=== PATIENT | male | born 1960 | race Caucasian/White ===

== ENCOUNTER 2021-09-27 11:36 | Inpatient (IN) | payer BC, SELFPAY ==
[2021-09-27] VITALS (9 sets, daily range): BP systolic 108–154; BP diastolic 46–83; PULSE 78–111; RESP 19–24; TEMP 36.5–37.1; O2SAT 79–95; BMI 32.1; BMI 32.7
--- NOTE | 2021-09-27 11:50 | ECG_ITS ---
APPROVED REPORT Exam: Resting ECG HR:108 bpm ECG Measurements Heart Rate 108 AXES UT 126 P 23 QRSd 90 QRS -3 QT 330 T 58 QTc 442 Conclusion Sinus tachycardia Possible Anterior infarct, age undetermined Abnormal ECG Electronically signed by : Dick Pereyra MD 09/28/2021 21:07:46
--- NOTE | 2021-09-27 11:59 | XR_ITS ---
PROCEDURE INFORMATION: Exam: XR Chest Exam date and time: 09/27/2021 11:59 AM Age: 61 years old Clinical indication: Shortness of breath; Additional info: Soa/low oxygen patient unable to remove necklace due to no clasps TECHNIQUE: Imaging protocol: XR of the chest. Views: 1 view. COMPARISON: No relevant prior studies available. FINDINGS: Lungs: No focal airspace disease. Pleural spaces: Unremarkable. No pleural effusion. No pneumothorax. Heart/Mediastinum: Cardiomediastinal silhouette is within normal limits. Bones/joints: Unremarkable. IMPRESSION: No acute cardiopulmonary abnormality.
--- NOTE | 2021-09-27 12:05 | HMH.EDGENADL ---
ED Disposition Clinical Impression: Pneumonia due to COVID-19 virus Respiratory failure with hypoxia Qualifiers: Chronicity: acute Qualified Code(s): J96.01 - Acute respiratory failure with hypoxia Disposition: Admitted As Inpatient Condition on Discharge: Serious - Critical Care Critical Care Time: No Attestation: On , the high probability of a clinically significant, sudden or life threatening deterioration of the following system(s) required my full and direct attention, intervention and personal management. The time I documented below is in addition to time spent performing reported procedures but includes the following listed in this critical care notation. Medical Decision Making - Mickey Inquiry Pt receiving controlled substance: No Vital Signs: 09/27/21 12:00 09/27/21 12:01 09/27/21 12:08 Temperature 97.7 F Temperature Source Oral Pulse Rate 109 H Pulse Rate [Left Radial] 111 H Respiratory Rate 22 24 Blood Pressure Blood Pressure [Right Arm] 122/57 L Blood Pressure Mean [Right Arm] 78 02 Sat by Pulse Oximetry 79 L 84 L Oxygen Delivery Method Vapotherm Room Air 09/27/21 12:25 09/27/21 13:29 09/27/21 14:15 Temperature Temperature Source Pulse Rate 108 H 103 H 99 H Pulse Rate [Left Radial] Respiratory Rate 24 22 24 Blood Pressure 121/83 129/69 131/69 Blood Pressure [Right Arm] Blood Pressure Mean [Right Arm] 02 Sat by Pulse Oximetry 93 L 95 93 L Oxygen Delivery Method Vapotherm Vapotherm Vapotherm 09/27/21 14:18 Temperature 97.7 F Temperature Source Oral Pulse Rate 99 H Pulse Rate [Left Radial] Respiratory Rate 24 Blood Pressure 131/69 Blood Pressure [Right Arm] Blood Pressure Mean [Right Arm] 02 Sat by Pulse Oximetry Oxygen Delivery Method Vapotherm - Lab Data Lab Results 09/27/21 11:53: WBC 3.5 L, RBC 6.07, Hgb 19.2 H, Hct 56.4 H, MCV 92.9, MCH 31.6 H, MCHC 34.0, RDW 13.9, Plt Count 145, MPV 9.8, Neut % (Auto) 69.5, Lymph % (Auto) 22.0, [place] % (Auto) 7.4, Eos % (Auto) 0.2, Baso % (Auto) 1.0, Neut # (Auto) 2.4, Lymph # (Auto) 0.8, [place] # (Auto) 0.3, Eos # (Auto) 0.0, Baso # (Auto) 0.0 09/27/21 11:53: Sodium 138, Potassium 4.5, Chloride 100, Carbon Dioxide 27, Anion Gap 15.5 H, BUN 40 H, Creatinine 1.40 H, Estimated Creat Clear 80, Estimated GFR 51 L, Est GFR ( Amer) 62, Glucose 134 H, Calcium 8.2 L, Total Bilirubin 0.6, AST 434 H*, ALT 241 H, Alkaline Phosphatase 99, Total Protein 7.1, Albumin 4.1, Globulin 3.0, Albumin/Globulin Ratio 1.4 09/27/21 11:53: SARS-CoV-2 (PCR) Detected A, Influenza A Untype (PCR) Not detected, Influenza Type B (PCR) Not detected 09/27/21 11:53: D-Dimer 2.37 H 09/27/21 11:53: PT 11.5, INR 1.02, APTT 26.8 09/27/21 11:53: C-Reactive Protein 99.0 H 09/27/21 11:53: Procalcitonin 0.182 09/27/21 11:53: Lactate Dehydrogenase 2042 H 09/27/21 12:13: VBG pH 7.34, VBG pCO2 43.4, VBG pO2 21.5 L, VBG HCO3 22.9 L, VBG Total CO2 24.3, VBG O2 Saturation 31.1 L, VBG Base Excess -2.8 L 09/27/21 12:19: Lactate 2.0 Result diagrams: 09/27/21 11:53 09/27/21 11:53 Orders (Tests/Meds): ED MEDICATIONS Generic Name Dose Route Start Last Admin Trade Name Freq PRN Reason Stop Dose Admin Acetaminophen 650 mg 09/27/21 14:09 Acetaminophen 325mg Tab PO 10/27/21 14:08 Q6HP PRN Mild pain,fever,headache Ascorbic Acid 500 mg 09/27/21 17:00 Ascorbic Acid 500mg Tab PO 10/27/21 16:59 QID [facility] Dexamethasone Sodium Phosphate 6 mg 09/27/21 14:09 Dexamethasone 4mg/Ml 1ml Vial IV 10/27/21 14:08 DAILY [facility] Enoxaparin Sodium 60 mg 09/27/21 14:09 Enoxaparin 60mg/0.6ml Syringe SQ 10/27/21 14:08 DAILY [facility] Ergocalciferol 50,000 unit 09/27/21 14:09 Ergocalciferol 50,000 Units (1.25mg) Capsule PO 10/27/21 14:08 WEEKLY [facility] Famotidine 20 mg 09/27/21 21:00 Famotidine 20mg Tablet PO 10/27/21 20:59 BID [facility] Sodium Chloride 1,000 mls @ 100 mls/hr 09/27/21 14:09 Sod Chlor 0.9%
[2021-09-27 12:06] LABS: Influenza A, PCR Not Detected (NotDetected); Influenza B, PCR Not Detected (NotDetected)
[2021-09-27 12:16] LABS: Eosinophils % 0.2 % (0.1-12.0); Hematocrit 56.4 % (42.0-52.0); Lymphocytes # 0.8 K/mm3 (0.7-4.5); Mean Corpuscular Hemoglobin 31.6 pg (27.0-31.2); Mean Corpuscular Volume 92.9 fl (80-94); Mean Platelet Volume 9.8 fl (7.4-10.4); Monocytes # 0.3 K/mm3 (0.1-1.0); Monocytes % 7.4 % (1.7-9.3); Neutrophils # 2.4 K/mm3 (1.8-7.8); Neutrophils % 69.5 % (37.0-80.0); Platelet Count 145 K/mm3 (142-424); Red Blood Count 6.07 M/mm3 (4.60-6.20); Red Cell Distribution Width 13.9 % (11.5-17.5); White Blood Count 3.5 K/mm3 (4.8-10.8)
--- NOTE | 2021-09-27 12:20 | PC.NURSE ---
RT at the bedside for ABG. pt declined. VBG order obtained per MD. Pt placed on high flow 02 per RT
[2021-09-27 12:22] LABS: Hemoglobin 19.2 g/dL (14.1-18.0)
--- NOTE | 2021-09-27 12:22 | PC.NURSE ---
Pt placed on vapotherm at this time. 30L 70% with sats staying above 90%.
[2021-09-27 12:25] LABS: Chloride 100 mmol/L (98-107); Potassium 4.5 mmoL/L (3.5-5.1); Sodium 138 mmol/L (136-145)
[2021-09-27 12:26] LABS: VBG Base Excess -2.8 mmol/L (-2.4-2.3); VBG HCO3 22.9 mmol/L (23-30); VBG Oxygen Saturation 31.1 % (50-70); VBG PCO2 43.4 mmol/L (35-51); VBG PH 7.34 mmol/L (7.31-7.41); VBG PO2 21.5 mmol/L (28-40); VBG Total CO2 24.3 mmol/L (23-27)
[2021-09-27 12:27] LABS: Blood Urea Nitrogen 40 mg/dl (9-20); Creatinine Clearance Estimated 80 mL/min (50-200); D-Dimer 2.37 ug/mL (0.0-0.5); Estimated Glomerular Filt Rate 51 ml/min (>60); GFR (African American) 62 ML/MIN (>60)
[2021-09-27 12:28] LABS: Alanine Aminotransferase 241 U/L (12-78); Albumin Level 4.1 g/dl (3.5-5.0); Albumin/Globulin Ratio 1.4 (1.1-1.8); Alkaline Phosphatase 99 U/L (38-126); Anion Gap 15.5 mEq/L (5-15); Aspartate Amino Transferase 434 U/L (17-59); Bilirubin,Total 0.6 mg/dl (0.2-1.3); Calcium 8.2 mg/dl (8.4-10.2); Carbon Dioxide 27 mmol/L (22.0-30.0); Glucose 134 mg/dl (74-100); Total Protein,Serum 7.1 g/dl (6.3-8.2)
--- NOTE | 2021-09-27 12:29 | CT_ITS ---
PROCEDURE INFORMATION: Exam: CTA Chest With Contrast Exam date and time: 09/27/2021 12:29 PM Age: 61 years old Clinical indication: Shortness of breath; Additional info: Hypoxia TECHNIQUE: Imaging protocol: Computed tomographic angiography of the chest with contrast. 3D rendering (Not supervised by radiologist): MIP and/or 3D reconstructed images were created by the technologist. Radiation optimization: All CT scans at this facility use at least one of these dose optimization techniques: automated exposure control; mA and/or kV adjustment per patient size (includes targeted exams where dose is matched to clinical indication); or iterative reconstruction. Contrast material: ISOVUE; Contrast volume: 70 ml; Contrast route: INTRAVENOUS (IV); COMPARISON: CR XR CHEST PORTABLE 09/27/2021 12:34 PM FINDINGS: Pulmonary arteries: No pulmonary embolus in the opacified pulmonary arteries. Aorta: Ectasia of the thoracic aorta. Lungs: Emphysematous change and bilateral interstitial/airspace disease. Bronchoscopy can be performed for further evaluation, if clinically indicated. Pleural spaces: Mild pleural thickening. Heart: No cardiomegaly. Lymph nodes: Multiple enlarged lymph nodes including 2.7 by 2.2 by 2.4 cm right hilar, 2.2 by 1.3 by 2.8 cm left suprahilar, and 2.4 by 1.8 by 2.7 cm subcarinal lymph nodes. Upper abdomen: Fatty infiltration of the liver. Splenic granulomata. Renal cysts, including a 2.3 cm right upper pole cyst. Questionable wall thickening in the nondistended stomach. Prominent stool. Bones/joints: Degenerative change. 1.2 cm bone island in the right 8th posterior rib. Soft tissues: Mild gynecomastia. IMPRESSION: 1. No pulmonary embolus in the opacified pulmonary arteries. 2. Multiple enlarged lymph nodes . 3. Emphysematous change and bilateral interstitial/airspace disease. 4. Additional findings as described above. COMMENTS: Consistent with the [employer]'s Incidental Findings Committee white paper (J Am Carissa Radiol 2018): Any incidental renal lesion less than 1 cm or classified as too small to characterize, or any incidental cystic renal lesion characterized as simple-appearing, is likely benign. No follow-up imaging is recommended for these lesions per consensus recommendations based on imaging criteria.
[2021-09-27 12:43] LABS: Procalcitonin 0.182 ng/mL (0.0-2.0)
[2021-09-27 12:49] LABS: Lactate Dehydrogenase 2042 U/L (313-618)
[2021-09-27 12:51] LABS: Coronavirus 19, PCR Detected (NotDetected)
[2021-09-27 13:09] LABS: Activated Partial Thrombo Time 26.8 seconds (22.8-30.6); INR 1.02 (0.9-1.1); Prothrombin Time 11.5 seconds (10.1-12.5)
--- NOTE | 2021-09-27 13:29 | PC.NURSE ---
pt retured from CT
--- NOTE | 2021-09-27 13:55 | PC.NURSE ---
Contacted house about admission
--- NOTE | 2021-09-27 14:13 | PC.NURSE ---
called report to maynor baez
--- NOTE | 2021-09-27 14:33 | PC.NURSE ---
PT ARRIVED TO THE FLOOR AT THIS TIME
[2021-09-27 14:34] LABS: Ferritin 8590 ng/ml (17.9-464)
--- NOTE | 2021-09-27 14:34 | HMH.PHAVTE ---
[facility] Pharmacy VTE Monitoring - Patient Demographics Admission date: 09/27/21 Report Date: 09/27/21 Time: 14:34 Allergies/Adverse Reactions: Patient Allergies No Known Allergies Allergy (Verified 09/27/21 11:59) Height: 1.8 m Weight: 104.326 kg Patient Problems: Current Active Problems Pneumonia due to COVID-19 virus (Acute) Respiratory failure with hypoxia (Acute) - VTE Risk Labs: VTE Related Lab Results Hgb 19.2 g/dL (14.1-18.0) H 09/27/21 11:53 Hct 56.4 % (42.0-52.0) H 09/27/21 11:53 Plt Count 145 K/mm3 (142-424) 09/27/21 11:53 PT 11.5 seconds (10.1-12.5) 09/27/21 11:53 INR 1.02 (0.9-1.1) 09/27/21 11:53 APTT 26.8 seconds (22.8-30.6) 09/27/21 11:53 BUN 40 mg/dl (9-20) H 09/27/21 11:53 Creatinine 1.40 mg/dl (0.66-1.25) H 09/27/21 11:53 Estimated Creat Clear 80 mL/min (50-200) 09/27/21 11:53 Was VTE Risk Assessment Performed: No Clinical Trial Participant: No - Prophylaxis VTE Prophylaxis Ordered?: Yes Types of VTE Prophylaxis: TEDS Knee High, Pharmacological Location of Applied Device: Bilateral Lower Extremeties Pharmacologic Type: Enoxaparin
--- NOTE | 2021-09-27 17:17 | PC.NURSE ---
Patient i9s pleasant but continues to refuse to wear his high flow cannula despite education otherwise and encouragement. Patient was explained the consequences of low and poor oxygenation to organs and the possibility of hypoxia. Patient is completely alert and oriented, patient states, Covid is not real.
--- NOTE | 2021-09-27 20:48 | HMH.HP ---
*Admission Date: 09/27/21 *Chief complaint: sob *History of present illness: this patient presented to the ed -e states that he thinks he caught the Covid. He has no known exposures, but started getting sick a week ago on after taking his father home to [facility]. He began feeling like he had the flu. He has had a cough. For the past few days he has shortness of breath and has been checking his pulse oximetry at home and today was as low as the 70s on room air. He does not have any chronic medical problems and does not have a primary care physician. He is a smoker. He has not been vaccinated against Covid. pt was admitted for covid-19 treatment - [facility] History I have reviewed the patient's past medical history: Yes *Have you ever received a pneumonia vaccine?: No *Have you received a flu vaccine this season?: No - *Social History Smoking Status: Current some day smoker Tobacco Type: cigarettes # Packs/Day (cigarettes): 2 Alcohol Intake: never *Occupational Status:: retired *Travel in the last 8 weeks: None Family Hx:: Non-contributory Review of Systems - Review of Systems Review of systems:: pertinent systems reviewed and negative unless documented below - Constitutional Denies fever(s) - Eyes Denies change in vision - ENT Denies sore throat - *Cardiovascular Reports shortness of breath with activity, Denies chest pain at rest - *Respiratory Reports cough, Reports shortness of breath, Denies coughing up blood - *Gastrointestinal Denies abdominal pain - *Genitourinary Denies blood in urine - *Musculoskeletal Denies joint pain, Denies neck pain - Integumentary/Breasts Denies rash - *Neurologic Denies headache(s), Denies seizure-like activity - Psychiatric Denies anxiety Meds Home Medications Medication Instructions Recorded Confirmed Type No Known Home Medications 09/27/21 09/27/21 History Allergies Allergy/AdvReac Type Severity Reaction Status Date / Time No Known Allergies Allergy Verified 09/27/21 11:59 Exam Vital signs and Labs for Last 24 Hours: Temp Pulse Resp BP Pulse Ox 98.2 F 83 19 108/46 L 94 L 09/27/21 19:43 09/27/21 19:43 09/27/21 19:43 09/27/21 19:43 09/27/21 19:43 Laboratory Results - last 24 hr 09/27/21 11:53: WBC 3.5 L, RBC 6.07, Hgb 19.2 H, Hct 56.4 H, MCV 92.9, MCH 31.6 H, MCHC 34.0, RDW 13.9, Plt Count 145, MPV 9.8, Neut % (Auto) 69.5, Lymph % (Auto) 22.0, [place] % (Auto) 7.4, Eos % (Auto) 0.2, Baso % (Auto) 1.0, Neut # (Auto) 2.4, Lymph # (Auto) 0.8, [place] # (Auto) 0.3, Eos # (Auto) 0.0, Baso # (Auto) 0.0 09/27/21 11:53: Sodium 138, Potassium 4.5, Chloride 100, Carbon Dioxide 27, Anion Gap 15.5 H, BUN 40 H, Creatinine 1.40 H, Estimated Creat Clear 80, Estimated GFR 51 L, Est GFR ( Amer) 62, Glucose 134 H, Calcium 8.2 L, Total Bilirubin 0.6, AST 434 H*, ALT 241 H, Alkaline Phosphatase 99, Total Protein 7.1, Albumin 4.1, Globulin 3.0, Albumin/Globulin Ratio 1.4 09/27/21 11:53: SARS-CoV-2 (PCR) Detected A, Influenza A Untype (PCR) Not detected, Influenza Type B (PCR) Not detected 09/27/21 11:53: D-Dimer 2.37 H 09/27/21 11:53: PT 11.5, INR 1.02, APTT 26.8 09/27/21 11:53: C-Reactive Protein 99.0 H 09/27/21 11:53: Ferritin 8590 H, Procalcitonin 0.182 09/27/21 11:53: Lactate Dehydrogenase 2042 H 09/27/21 12:13: VBG pH 7.34, VBG pCO2 43.4, VBG pO2 21.5 L, VBG HCO3 22.9 L, VBG Total CO2 24.3, VBG O2 Saturation 31.1 L, VBG Base Excess -2.8 L 09/27/21 12:19: Lactate 2.0 I & O for Last 24 hours: Intake & Output 09/25/21 09/26/21 09/27/21 09/28/21 11:59 11:59 11:59 11:59 Intake Total 360 / 360 Balance 360 / 360 Weight 230 lb 234 lb 7 oz - Constitutional no acute distress, obese - *Routine HEENT Exam Head: Present: normocephalic Eye: Present: EOMI, PERRL ENT: Present: mucous membranes dry - *Routine Neck Exam Absent: JVD - *Routine Respiratory Exam Present: decreased breath sounds, rhonchi - *Rou
[2021-09-28] VITALS (8 sets, daily range): BP systolic 119–156; BP diastolic 66–78; PULSE 73–104; RESP 20–28; TEMP 36.6–37; O2SAT 91–94; BMI 33.1
--- NOTE | 2021-09-28 02:38 | PC.NURSE ---
Patient is A&Ox4. Patient has had to have frequent interventions regarding keeping his oxygen on. Patient's oxygen drops to upper 60s-low 70s when patient takes oxygen off.
[2021-09-28 06:21] LABS: Chloride 104 mmol/L (98-107); Sodium 136 mmol/L (136-145)
[2021-09-28 06:22] LABS: Potassium 4.6 mmoL/L (3.5-5.1)
[2021-09-28 06:24] LABS: Alanine Aminotransferase 166 U/L (12-78); Albumin Level 3.3 g/dl (3.5-5.0); Albumin/Globulin Ratio 1.2 (1.1-1.8); Alkaline Phosphatase 94 U/L (38-126); Anion Gap 10.6 mEq/L (5-15); Aspartate Amino Transferase 279 U/L (17-59); Bilirubin,Total 0.5 mg/dl (0.2-1.3); Blood Urea Nitrogen 31 mg/dl (9-20); Carbon Dioxide 26 mmol/L (22.0-30.0); Creatinine Clearance Estimated 115 mL/min (50-200); Estimated Glomerular Filt Rate 85 ml/min (>60); GFR (African American) 103 ML/MIN (>60); Globulin 2.8 g/dL (1.3-3.2); Total Protein,Serum 6.1 g/dl (6.3-8.2)
[2021-09-28 06:25] LABS: Calcium 7.7 mg/dl (8.4-10.2); Glucose 100 mg/dl (74-100)
--- NOTE | 2021-09-28 09:24 | HMH.ACPN2 ---
Internal Medicine - PN: Subj *Date: 09/28/21 *Time: 09:24 Interval history: vaper therm in place pt states he was able to eat some, still short of air Exam Vital signs and Labs for Last 24 Hours: Temp Pulse Resp BP Pulse Ox 98.4 F 96 H 26 H 156/68 H 91 L 09/28/21 08:00 09/28/21 08:00 09/28/21 08:00 09/28/21 08:00 09/28/21 08:00 Laboratory Results - last 24 hr 09/27/21 11:53: WBC 3.5 L, RBC 6.07, Hgb 19.2 H, Hct 56.4 H, MCV 92.9, MCH 31.6 H, MCHC 34.0, RDW 13.9, Plt Count 145, MPV 9.8, Neut % (Auto) 69.5, Lymph % (Auto) 22.0, [place] % (Auto) 7.4, Eos % (Auto) 0.2, Baso % (Auto) 1.0, Neut # (Auto) 2.4, Lymph # (Auto) 0.8, [place] # (Auto) 0.3, Eos # (Auto) 0.0, Baso # (Auto) 0.0 09/27/21 11:53: Sodium 138, Potassium 4.5, Chloride 100, Carbon Dioxide 27, Anion Gap 15.5 H, BUN 40 H, Creatinine 1.40 H, Estimated Creat Clear 80, Estimated GFR 51 L, Est GFR ( Amer) 62, Glucose 134 H, Calcium 8.2 L, Total Bilirubin 0.6, AST 434 H*, ALT 241 H, Alkaline Phosphatase 99, Total Protein 7.1, Albumin 4.1, Globulin 3.0, Albumin/Globulin Ratio 1.4 09/27/21 11:53: SARS-CoV-2 (PCR) Detected A, Influenza A Untype (PCR) Not detected, Influenza Type B (PCR) Not detected 09/27/21 11:53: D-Dimer 2.37 H 09/27/21 11:53: PT 11.5, INR 1.02, APTT 26.8 09/27/21 11:53: C-Reactive Protein 99.0 H 09/27/21 11:53: Ferritin 8590 H, Procalcitonin 0.182 09/27/21 11:53: Lactate Dehydrogenase 2041 H 09/27/21 12:13: VBG pH 7.34, VBG pCO2 43.4, VBG pO2 21.5 L, VBG HCO3 22.9 L, VBG Total CO2 24.3, VBG O2 Saturation 31.1 L, VBG Base Excess -2.8 L 09/27/21 12:19: Lactate 2.0 09/28/21 05:43: Sodium 136, Potassium 4.6, Chloride 104, Carbon Dioxide 26, Anion Gap 10.6, BUN 31 H, Creatinine 0.90 D, Estimated Creat Clear 115, Estimated GFR 85, Est GFR ( Amer) 103 D, Glucose 100 D, Calcium 7.7 L, Total Bilirubin 0.5, AST 279 H D, ALT 166 H D, Alkaline Phosphatase 94, Total Protein 6.1 L, Albumin 3.3 L D, Globulin 2.8, Albumin/Globulin Ratio 1.2 I & O for Last 24 hours: Intake & Output 09/25/21 09/26/21 09/27/21 09/28/21 11:59 11:59 11:59 11:59 Intake Total 480 / 480 Output Total 0 / 0 Balance 480 / 480 Weight 230 lb 236 lb 9.6 oz - Constitutional no acute distress - *Routine HEENT Exam Head: Present: normocephalic Eye: Present: PERRL ENT: Present: mucous membranes moist - *Routine Neck Exam Present: supple. Absent: lymphadenopathy - *Routine Respiratory Exam Present: CTA bilaterally - *Routine Cardiovascular Exam Present: RRR - *Routine Abdominal Exam Present: soft, normoactive bowel sounds. Absent: tenderness - *Routine Extremities Exam Absent: cyanosis, clubbing, edema - *Routine Skin Exam Present: warm. Absent: rash - *Routine Neurological Exam Present: alert, oriented X3 Assessment and Plan (1) Obesity (BMI 30-39.9) Status: Acute Category: Medical Code(s): E66.9 - Obesity, unspecified (2) Pneumonia due to COVID-19 virus Status: Acute Category: Medical Code(s): U07.1 - COVID-19; J12.82 - Pneumonia due to coronavirus disease 2019 (3) Respiratory failure with hypoxia Status: Acute Qualifiers: Chronicity: acute Qualified Code(s): J96.01 - Acute respiratory failure with hypoxia Category: Medical Code(s): J96.91 - Respiratory failure, unspecified with hypoxia (4) Renal insufficiency Status: Acute Category: Medical Code(s): N28.9 - Disorder of kidney and ureter, unspecified (5) Elevated liver enzymes Status: Acute Category: Medical Code(s): R74.8 - Abnormal levels of other serum enzymes - Assessment and plan all Dx Assessment and Plan for all problems:: rounded with dr lanza all orders per dr bucio pulreji consult
--- NOTE | 2021-09-28 11:24 | HMH.PULMCON ---
*Admission Date: 09/27/21 *Reason for consult:: Acute hypoxic respiratory failure, COVID-19 pneumonia *History of present illness: Mr. Hernandez is a 61-year-old female smoker greater than [id number] smoking history, not using any inhalers at baseline, not using oxygen, yet to be vaccinated, no known recent sick contacts presented to the hospital with worsening respiratory status which he initially thought secondary to flu with symptoms getting progressively worse and he seek medical attention during which he was needing oxygen supplementation to maintain his O2 saturations and was eventually admitted to the hospital for further management. [facility] History *Have you ever received a pneumonia vaccine?: No *Have you received a flu vaccine this season?: No - *Social History Smoking Status: Current some day smoker Tobacco Type: cigarettes # Packs/Day (cigarettes): 2 Alcohol Intake: never *Occupational Status:: retired *Travel in the last 8 weeks: None Family Hx:: Non-contributory ROS - Cons Reports anorexia, Reports body ache(s) - ENT Denies bleeding gums - Card Reports shortness of breath with activity - Resp Respiratory: Reports shortness of breath, Reports change in phlegm color, Reports chest congestion, Reports cough, Reports dyspnea, Reports excessive phlegm production, Denies coughing up blood, Denies pain on inspiration, Denies pain with cough, Reports cough with sputum production, Denies pain with breathing - GI Gastrointestingal: Denies: abdominal pain - Psych Denies thoughts of hurting/killing others, Denies thoughts of hurting/killing yourself Meds Home Medications Medication Instructions Recorded Confirmed Type No Known Home Medications 09/27/21 09/27/21 History Allergies Allergy/AdvReac Type Severity Reaction Status Date / Time No Known Allergies Allergy Verified 09/27/21 11:59 Exam - Constitutional Constitutional:: Absent: no acute distress, comfortable - HENMT Exam HENMT: Present: normocephalic - Eye Exam Eyes:: Present: normal appearance both eyes and related structures - Neck Exam Neck:: Present: normal visual inspection - Respiratory Exam Respiratory:: Present: respiratory distress, rales, rhonchi. Absent: accessory muscle use, wheezing - Cardiovascular Exam Cardiac:: Present: S1, S2 - GI Exam GI:: Present: soft, no hepatosplenomegaly, no tenderness - Skin Exam Skin: Present: warm, no rash - Neurological Exam Neurological: Present: alert, awake, normal cognition - Extremities Exam Extremities: Present: no cyanosis, no clubbing, no edema Internal Medicine - CN: Reslt - Labs CBC & Chem 7: 09/27/21 11:53 09/28/21 05:43 Labs: Short CBC 09/27/21 Range/Units 11:53 WBC 3.5 L (4.8-10.8) K/mm3 Hgb 19.2 H (14.1-18.0) g/dL Hct 56.4 H (42.0-52.0) % Plt Count 145 (142-424) K/mm3 BMP 09/27/21 09/28/21 11:53 05:43 Sodium 138 136 Potassium 4.5 4.6 Chloride 100 104 Carbon Dioxide 27 26 BUN 40 H 31 H Creatinine 1.40 H 0.90 D Glucose 134 H 100 D Calcium 8.2 L 7.7 L Liver Function 09/27/21 09/28/21 Range/Units 11:53 05:43 Total Bilirubin 0.6 0.5 (0.2-1.3) mg/dl AST 434 H* 279 H D (17-59) U/L ALT 241 H 166 H D (12-78) U/L Alkaline Phosphatase 99 94 (38-126) U/L Albumin 4.1 3.3 L D (3.5-5.0) g/dl - ABG Interpretation ABG results: 09/27/21 12:13 VBG pH 7.34 VBG pCO2 43.4 VBG pO2 21.5 L VBG HCO3 22.9 L VBG Total CO2 24.3 VBG O2 Saturation 31.1 L VBG Base Excess -2.8 L Assessment and Plan (1) Obesity (BMI 30-39.9) Status: Acute Category: Medical Code(s): E66.9 - Obesity, unspecified (2) Pneumonia due to COVID-19 virus Status: Acute Category: Medical Code(s): U07.1 - COVID-19; J12.82 - Pneumonia due to coronavirus disease 2019 (3) Respiratory failure with hypoxia Status: Acute Qualifiers: Chronicity: acute Qualified Code(s): J96.01
--- NOTE | 2021-09-28 16:42 | PC.NURSE ---
Pt has been pleasant and somewhat cooperative this shift. Pt requires frequent education regarding the use of Vapotherm. Pt frequently removes his cannula and ambulates throughout the room independently. Pt de-sats. to mid 70's and requires about 20 minutes to fully recover once Vapotherm is reapplied. A&O X4. No complaints of pain. SOA reported with any and all activity. Vapotherm is currently set to 30 LPM/75%. Lung sounds are diminished. No edema noted. Skin is C/D/I. Urine is clear and yellow. No BM thus far this shift. Appetite is fair and pt eats about 50% of all meals. Pt has been instructed to provide a sputum sample and a specimen cup has been placed at bedside. 20 G peripheral IV in the LT forearm is patent and infusing NS @ 100 ML/HR. VSS. Call light within reach. Will continue to monitor.
[2021-09-29] VITALS (11 sets, daily range): BP systolic 113–152; BP diastolic 51–85; PULSE 69–88; RESP 17–25; TEMP 36.4–36.8; O2SAT 90–96; BMI 33.1; BMI 33.0
--- NOTE | 2021-09-29 05:33 | PC.NURSE ---
Patient has been cooperative this shift and has done well in keeping his vapotherm on. Patient was educated on an IS, patient verbally stated that he understood.
[2021-09-29 06:41] LABS: Basophils # 0.2 K/mm3 (0-0.2); Basophils % 2.7 % (0.1-2.0); Eosinophils % 0.1 % (0.1-12.0); Hemoglobin 17.1 g/dL (14.1-18.0); Lymphocytes # 1.3 K/mm3 (0.7-4.5); Lymphocytes % 18.8 % (10-50); Mean Corpuscular HGB Conc 34.1 g/dL (31.8-35.4); Mean Corpuscular Hemoglobin 31.4 pg (27.0-31.2); Mean Corpuscular Volume 91.9 fl (80-94); Mean Platelet Volume 10.3 fl (7.4-10.4); Monocytes # 0.3 K/mm3 (0.1-1.0); Monocytes % 4.5 % (1.7-9.3); Neutrophils # 4.9 K/mm3 (1.8-7.8); Neutrophils % 73.9 % (37.0-80.0); Platelet Count 197 K/mm3 (142-424); Red Blood Count 5.44 M/mm3 (4.60-6.20); Red Cell Distribution Width 14.7 % (11.5-17.5); White Blood Count 6.7 K/mm3 (4.8-10.8)
[2021-09-29 07:07] LABS: Anion Gap 6.2 mEq/L (5-15); Blood Urea Nitrogen 26 mg/dl (9-20); Carbon Dioxide 31 mmol/L (22.0-30.0); Chloride 107 mmol/L (98-107); Creatinine Clearance Estimated 115 mL/min (50-200); Estimated Glomerular Filt Rate 85 ml/min (>60); GFR (African American) 103 ML/MIN (>60); Glucose 116 mg/dl (74-100); Potassium 5.2 mmoL/L (3.5-5.1); Sodium 139 mmol/L (136-145)
[2021-09-29 08:18] LABS: Alanine Aminotransferase 163 U/L (12-78); Albumin Level 3.4 g/dl (3.5-5.0); Alkaline Phosphatase 97 U/L (38-126); Aspartate Amino Transferase 226 U/L (17-59); Bilirubin,Direct 0.3 mg/dl (0.0-0.4); Bilirubin,Indirect 0.2 mg/dL (0.0-0.9); Bilirubin,Total 0.5 mg/dl (0.2-1.3); Bilirubin,Unconjugated 0.2 mg/dL (0.0-1.1); Total Protein,Serum 6.6 g/dl (6.3-8.2)
--- NOTE | 2021-09-29 08:45 | HMH.ACPN2 ---
Internal Medicine - PN: Subj *Date: 09/29/21 *Time: 09:27 Interval history: 61-year-old male patient resting in bed quietly awakens to verbal stimuli. He reports he feels a little better today than yesterday though having cough and slight shortness of breath with exertion. Encouraged to eat more of meals, up in a chair for all meals, and moving around the room tolerating. Physical strength to intact with oxygen saturation 93%. Exam Vital signs and Labs for Last 24 Hours: Temp Pulse Resp BP Pulse Ox 98.3 F 73 20 129/56 L 93 L 09/29/21 08:00 09/29/21 08:00 09/29/21 08:00 09/29/21 08:00 09/29/21 08:00 Laboratory Results - last 24 hr 09/29/21 06:00: WBC 6.7 D, RBC 5.44, Hgb 17.1, Hct 50.0, MCV 91.9, MCH 31.4 H, MCHC 34.1, RDW 14.7, Plt Count 197 D, MPV 10.3, Neut % (Auto) 73.9, Lymph % (Auto) 18.8, [place] % (Auto) 4.5, Eos % (Auto) 0.1, Baso % (Auto) 2.7 H, Neut # (Auto) 4.9, Lymph # (Auto) 1.3, [place] # (Auto) 0.3, Eos # (Auto) 0.0, Baso # (Auto) 0.2 09/29/21 06:00: Sodium 139, Potassium 5.2 H, Chloride 107, Carbon Dioxide 31 H, Anion Gap 6.2, BUN 26 H, Creatinine 0.90, Estimated Creat Clear 115, Estimated GFR 85, Est GFR ( Amer) 103, Glucose 116 H, Calcium 8.0 L 09/29/21 06:00: Total Bilirubin 0.5, Direct Bilirubin 0.3, Conjugated Bilirubin 0.0, Indirect Bilirubin 0.2, Unconjugated Bilirubin 0.2, AST 226 H, ALT 163 H, Alkaline Phosphatase 97, Total Protein 6.6, Albumin 3.4 L I & O for Last 24 hours: Intake & Output 09/26/21 09/27/21 09/28/21 09/29/21 23:59 23:59 23:59 23:59 Intake Total 360 / 360 2165 / 2165 Output Total 0 / 200 825 / 825 Balance 360 / 360 2166 / 1966 -825 / -825 Weight 234 lb 7 oz 236 lb 9.6 oz 236 lb 9.601 oz - Constitutional no acute distress - *Routine HEENT Exam Head: Present: normocephalic Eye: Present: EOMI ENT: Present: mucous membranes moist - *Routine Neck Exam Present: trachea midline. Absent: tracheal deviation - *Routine Respiratory Exam Present: decreased breath sounds. Absent: accessory muscle use - *Routine Cardiovascular Exam Present: RRR - *Routine Abdominal Exam Present: soft, normoactive bowel sounds. Absent: tenderness - *Routine Extremities Exam Present: full ROM, pulses intact. Absent: cyanosis, clubbing, calf tenderness - *Routine Skin Exam Present: intact, dry. Absent: cyanosis, erythema - *Routine Neurological Exam Present: alert, oriented X3. Absent: altered mental status - Routine Psychiatric Exam Present: normal affect, normal thought process. Absent: visual hallucinations Assessment and Plan (1) Obesity (BMI 30-39.9) Status: Acute Category: Medical Code(s): E66.9 - Obesity, unspecified (2) Pneumonia due to COVID-19 virus Status: Acute Category: Medical Code(s): U07.1 - COVID-19; J12.82 - Pneumonia due to coronavirus disease 2019 (3) Respiratory failure with hypoxia Status: Acute Qualifiers: Chronicity: acute Qualified Code(s): J96.01 - Acute respiratory failure with hypoxia Category: Medical Code(s): J96.91 - Respiratory failure, unspecified with hypoxia (4) Renal insufficiency Status: Acute Category: Medical Code(s): N28.9 - Disorder of kidney and ureter, unspecified (5) Elevated liver enzymes Status: Acute Category: Medical Code(s): R74.8 - Abnormal levels of other serum enzymes - Assessment and plan all Dx Assessment and Plan for all problems:: Rounded with Dr. Bowling, all orders per Dr. Bowling: 1. Continue current medical regimen 2. Wean O2 as tolerated 3. Pulmonology following
--- NOTE | 2021-09-29 14:51 | P.PN_ITS ---
Internal Medicine - PN: Subj *Date: 09/29/21 *Time: 14:51 Interval history: No acute respiratory events overnight. Exam - Constitutional Constitutional:: Present: no acute distress, comfortable - HENMT Exam HENMT: Present: normocephalic, atraumatic - Eye Exam Eyes:: Present: normal appearance both eyes and related structures - Neck Exam Neck:: Present: normal visual inspection - Respiratory Exam Respiratory:: Present: able to speak in complete sentences, respiratory di stress, rales - Cardiovascular Exam Cardiac:: Present: S1, S2 - GI Exam GI:: Present: soft, no hepatosplenomegaly - Skin Exam Skin: Present: warm, no rash - Neurological Exam Neurological: Present: alert, awake, normal cognition - Extremities Exam Extremities: Present: no cyanosis, no clubbing, edema Assessment and Plan (1) Obesity (BMI 30-39.9) Status: Acute Category: Medical Code(s): E66.9 - Obesity, unspecified (2) Pneumonia due to COVID-19 virus Status: Acute Category: Medical Code(s): U07.1 - COVID-19; J12.82 - Pneumonia due to coronavirus disease 2019 (3) Respiratory failure with hypoxia Status: Acute Qualifiers: Chronicity: acute Qualified Code(s): J96.01 - Acute respiratory failure wi th hypoxia Category: Medical Code(s): J96.91 - Respiratory failure, unspecified with hypoxia (4) Renal insufficiency Status: Acute Category: Medical Code(s): N28.9 - Disorder of kidney and ureter, unspecified (5) Elevated liver enzymes Status: Acute Category: Medical Code(s): R74.8 - Abnormal levels of other serum enzymes - Assessment and plan all Dx Assessment and Plan for all problems:: #Acute hypoxic respiratory failure: #COVID-19 pneumonia: Current smoker greater than [id number] smoking history. Yet to be vaccinated. COVID-19 PCR positive. Flu a and B-. CTA did not show any evidence of pulmonary emboli however showed bilateral diffuse lower lobe predominant groundglass opacities concerning for COVID-19 pneumonia. Significantly elevated inflammatory markers. Patient was initiated on remdesivir dexamethasone and baricitinib on admission. Interval update: Patient respiratory status remained relatively stable. He continued to remain on 30 L 75% FiO2. This morning patient is off high flow nasal cannula saturating 80% with mild respiratory distress and upon talking to the nursing staff patient has been frequently removing the high flow nasal cannula since yesterday. Have discussed again regarding the proning protocol. Examination reveals 1+ lower extremity edema. Plan: Initiate proning protocol. Discussed the benefits and risks and patient is agreeable yesterday however he has not been prone up until this morning. Discussed with the nursing staff to initiate proning protocol. DuoNebs every 6 hours scheduled along with budesonide every 12 Ceftriaxone and azithromycin. We will follow with sputum cultures andnasal MRSA PCR. Blood cultures no growth 48 hours Continue high flow nasal oxygen supplementation, wean as tolerated Continue remdesivir dexamethasone and baricitinib for COVID-19 pneumonia. # Patient also noted to have mediastinal and hilar lymphadenopathy which can well be reactive. No recent prior x-rays or CT imaging available for further review. This needs to be followed as an outpatient basis, with respect to the lymphadenopathy and the possibility of underlying ILD.
--- NOTE | 2021-09-29 17:25 | PC.NURSE ---
Patient is non tele and on vapotheram at 30L and 75%. Patient encouraged to prone and teachings reinforced. Patient was helped into prone position as much as he was bale to tolerate. Patient did remove oxygen one time during shift, with sats dropping to mid 70's and was reminded on the need/importance of keeping oxygen on. Alert and oriented times 4. Up with standby to bedside commode. Call light and phone in reach and bed in lowest position.
[2021-09-30] VITALS (11 sets, daily range): BP systolic 125–158; BP diastolic 64–95; PULSE 62–79; RESP 20–29; TEMP 36.3–36.7; O2SAT 91–96; BMI 32.5
--- NOTE | 2021-09-30 04:34 | PC.NURSE ---
Patient has been compliant with keeping his vapotherm on, it has occasionally fell out of his nose but patient has been educated on how to apply device back on and if unable to do so, he is to ring out and ask for help. Patient has remained on 30L & 75%, he has maintained his oxygen levels in the 90s.
--- NOTE | 2021-09-30 05:42 | PC.NURSE ---
Had patient deep breath and cough but unable to obtain sputum
[2021-09-30 06:50] LABS: Basophils # 0.1 K/mm3 (0-0.2); Eosinophils % 0.1 % (0.1-12.0); Monocytes % 6.8 % (1.7-9.3); Red Cell Distribution Width 14.5 % (11.5-17.5)
[2021-09-30 07:16] LABS: Basophils % 1.9 % (0.1-2.0); Hematocrit 44.1 % (42.0-52.0); Lymphocytes # 1.8 K/mm3 (0.7-4.5); Lymphocytes % 27.4 % (10-50); Mean Corpuscular HGB Conc 33.3 g/dL (31.8-35.4); Mean Corpuscular Hemoglobin 30.8 pg (27.0-31.2); Mean Corpuscular Volume 92.4 fl (80-94); Mean Platelet Volume 10.4 fl (7.4-10.4); Monocytes # 0.5 K/mm3 (0.1-1.0); Neutrophils # 4.2 K/mm3 (1.8-7.8); Neutrophils % 63.8 % (37.0-80.0); Platelet Count 196 K/mm3 (142-424); Red Blood Count 4.77 M/mm3 (4.60-6.20); White Blood Count 6.6 K/mm3 (4.8-10.8)
[2021-09-30 07:29] LABS: Hemoglobin 14.7 g/dL (14.1-18.0)
--- NOTE | 2021-09-30 08:41 | HMH.ACPN2 ---
Internal Medicine - PN: Subj *Date: 09/30/21 *Time: 08:20 Interval history: pt laying in bed states no c/o. pt still on vapertherm Exam Vital signs and Labs for Last 24 Hours: Temp Pulse Resp BP Pulse Ox 97.8 F 62 22 154/64 H 92 L 09/30/21 08:00 09/30/21 08:00 09/30/21 08:00 09/30/21 08:00 09/30/21 08:00 Laboratory Results - last 24 hr 09/30/21 05:37: WBC 6.6, RBC 4.77, Hgb 14.7 D, Hct 44.1, MCV 92.4, MCH 30.8, MCHC 33.3, RDW 14.5, Plt Count 196, MPV 10.4, Neut % (Auto) 63.8, Lymph % (Auto) 27.4, [place] % (Auto) 6.8, Eos % (Auto) 0.1, Baso % (Auto) 1.9, Neut # (Auto) 4.2, Lymph # (Auto) 1.8, [place] # (Auto) 0.5, Eos # (Auto) 0.0, Baso # (Auto) 0.1 I & O for Last 24 hours: Intake & Output 09/27/21 09/28/21 09/29/21 09/30/21 11:59 11:59 11:59 11:59 Intake Total 480 / 480 2046 / 2046 240 / 240 Output Total 0 / 0 1125 / 1125 1025 / 1025 Balance 480 / 480 921 / 921 -785 / -785 Weight 230 lb 236 lb 9.6 oz 235 lb 14.314 oz 232 lb 14.4 oz Microbiology Reports for the Last 24 Hours: Microbiology 09/27/21 12:19 Blood Blood Culture - Preliminary NO GROWTH AFTER 48 HOURS 09/27/21 12:22 Blood Blood Culture - Preliminary NO GROWTH AFTER 48 HOURS - Constitutional no acute distress - *Routine HEENT Exam Head: Present: normocephalic Eye: Present: PERRL ENT: Present: mucous membranes moist - *Routine Neck Exam Present: supple. Absent: lymphadenopathy - *Routine Respiratory Exam Present: decreased breath sounds, rhonchi - *Routine Cardiovascular Exam Present: RRR - *Routine Abdominal Exam Present: soft, normoactive bowel sounds. Absent: tenderness - *Routine Extremities Exam Absent: cyanosis, clubbing, edema - *Routine Skin Exam Present: warm. Absent: rash - *Routine Neurological Exam Present: alert, oriented X3 Assessment and Plan (1) Obesity (BMI 30-39.9) Status: Acute Category: Medical Code(s): E66.9 - Obesity, unspecified (2) Pneumonia due to COVID-19 virus Status: Acute Category: Medical Code(s): U07.1 - COVID-19; J12.82 - Pneumonia due to coronavirus disease 2019 (3) Respiratory failure with hypoxia Status: Acute Qualifiers: Chronicity: acute Qualified Code(s): J96.01 - Acute respiratory failure with hypoxia Category: Medical Code(s): J96.91 - Respiratory failure, unspecified with hypoxia (4) Renal insufficiency Status: Acute Category: Medical Code(s): N28.9 - Disorder of kidney and ureter, unspecified (5) Elevated liver enzymes Status: Acute Category: Medical Code(s): R74.8 - Abnormal levels of other serum enzymes - Assessment and plan all Dx Assessment and Plan for all problems:: rounded with dr bucio all orders per dr bucio continue plan of care pulm consult out of bed try weaning vapertherm
[2021-09-30 09:03] LABS: Alanine Aminotransferase 112 U/L (12-78); Albumin Level 2.9 g/dl (3.5-5.0); Alkaline Phosphatase 86 U/L (38-126); Anion Gap 2.9 mEq/L (5-15); Aspartate Amino Transferase 129 U/L (17-59); Bilirubin,Total 0.4 mg/dl (0.2-1.3); Blood Urea Nitrogen 21 mg/dl (9-20); Calcium 7.7 mg/dl (8.4-10.2); Carbon Dioxide 31 mmol/L (22.0-30.0); Chloride 110 mmol/L (98-107); Creatinine Clearance Estimated 113 mL/min (50-200); Estimated Glomerular Filt Rate 114 ml/min (>60); GFR (African American) 138 ML/MIN (>60); Globulin 2.9 g/dL (1.3-3.2); Glucose 99 mg/dl (74-100); Potassium 4.9 mmoL/L (3.5-5.1); Sodium 139 mmol/L (136-145); Total Protein,Serum 5.8 g/dl (6.3-8.2)
--- NOTE | 2021-09-30 18:26 | PC.NURSE ---
Patient is non tele and on vapotherm at 30L and 70%. Patient has been up to chair. Incentive spirometer in use. Plan of care is to wean oxygen. Bed in lowest position and phone and call light in reach. Will continue to monitor.
[2021-10-01] VITALS (9 sets, daily range): BP systolic 141–156; BP diastolic 71–89; PULSE 59–85; RESP 20–28; TEMP 36.4–37.1; O2SAT 90–96; BMI 32.5
--- NOTE | 2021-10-01 04:50 | PC.NURSE ---
Patient has required frequent interventions this RN's shift. Patient states it falls off . He does no effort in attempts to place vapotherm back on and leaves it laying on the floor. Vapotherm has had to be placed back on patient multiple times this shift. RT stated that he refused his midnight breathing treatment and doesn't want to wear his oxygen. Patient had repeatedly pulled off his continuous pulse ox. Patient has been restless this shift. He has been educated on proning and the use of his incentive spirometer.
--- NOTE | 2021-10-01 05:16 | PC.NURSE ---
Patient states that he feels like he cannot breathe and states that is why he keeps taking his vapotherm off. RT notified to possibly turn down flow.
[2021-10-01 06:53] LABS: Basophils # 0.1 K/mm3 (0-0.2); Basophils % 1.1 % (0.1-2.0); Hematocrit 48.1 % (42.0-52.0); Hemoglobin 16.1 g/dL (14.1-18.0); Lymphocytes # 1.4 K/mm3 (0.7-4.5); Lymphocytes % 17.6 % (10-50); Mean Corpuscular HGB Conc 33.4 g/dL (31.8-35.4); Mean Corpuscular Hemoglobin 30.8 pg (27.0-31.2); Mean Platelet Volume 10.1 fl (7.4-10.4); Monocytes # 0.5 K/mm3 (0.1-1.0); Monocytes % 6.6 % (1.7-9.3); Neutrophils # 5.7 K/mm3 (1.8-7.8); Neutrophils % 74.7 % (37.0-80.0); Platelet Count 214 K/mm3 (142-424); Red Blood Count 5.23 M/mm3 (4.60-6.20); Red Cell Distribution Width 14.3 % (11.5-17.5); White Blood Count 7.6 K/mm3 (4.8-10.8)
[2021-10-01 07:00] LABS: Alanine Aminotransferase 117 U/L (12-78); Albumin Level 3.4 g/dl (3.5-5.0); Albumin/Globulin Ratio 1.1 (1.1-1.8); Alkaline Phosphatase 101 U/L (38-126); Anion Gap 4.7 mEq/L (5-15); Aspartate Amino Transferase 115 U/L (17-59); Bilirubin,Total 0.8 mg/dl (0.2-1.3); Blood Urea Nitrogen 19 mg/dl (9-20); Calcium 8.4 mg/dl (8.4-10.2); Carbon Dioxide 31 mmol/L (22.0-30.0); Chloride 107 mmol/L (98-107); Creatinine Clearance Estimated 113 mL/min (50-200); Estimated Glomerular Filt Rate 114 ml/min (>60); GFR (African American) 138 ML/MIN (>60); Glucose 87 mg/dl (74-100); Potassium 4.7 mmoL/L (3.5-5.1); Sodium 138 mmol/L (136-145); Total Protein,Serum 6.4 g/dl (6.3-8.2)
--- NOTE | 2021-10-01 08:24 | HMH.ACPN2 ---
Internal Medicine - PN: Subj *Date: 10/01/21 *Time: 09:47 Interval history: 61-year-old male patient sitting up in bed reports he did have some shortness of breath during the night. Current oxygenation 98 2% on 30 L Vapotherm. Has not eaten breakfast, he does become a little short of breath during conversation and does report shortness of breath with activity. Effectiveness of pronation explained to patient again and encouraged to pronate as often as possible. Exam Vital signs and Labs for Last 24 Hours: Temp Pulse Resp BP Pulse Ox 97.8 F 68 20 153/71 H 93 L 10/01/21 04:00 10/01/21 06:10 10/01/21 04:00 10/01/21 04:00 10/01/21 06:10 Laboratory Results - last 24 hr 09/30/21 05:37: Sodium 139, Potassium 4.9, Chloride 110 H, Carbon Dioxide 31 H, Anion Gap 2.9 L, BUN 21 H, Creatinine 0.70 D, Estimated Creat Clear 113, Estimated GFR 114, Est GFR ( Amer) 138 D, Glucose 99, Calcium 7.7 L, Total Bilirubin 0.4, AST 129 H D, ALT 112 H D, Alkaline Phosphatase 86, Total Protein 5.8 L, Albumin 2.9 L D, Globulin 2.9, Albumin/Globulin Ratio 1.0 L 10/01/21 06:23: WBC 7.6, RBC 5.23, Hgb 16.1, Hct 48.1, MCV 92.0, MCH 30.8, MCHC 33.4, RDW 14.3, Plt Count 214, MPV 10.1, Neut % (Auto) 74.7, Lymph % (Auto) 17.6, [place] % (Auto) 6.6, Eos % (Auto) 0.0 L, Baso % (Auto) 1.1, Neut # (Auto) 5.7, Lymph # (Auto) 1.4, [place] # (Auto) 0.5, Eos # (Auto) 0.0, Baso # (Auto) 0.1 10/01/21 06:23: Sodium 138, Potassium 4.7, Chloride 107, Carbon Dioxide 31 H, Anion Gap 4.7 L, BUN 19, Creatinine 0.70, Estimated Creat Clear 113, Estimated GFR 114, Est GFR ( Amer) 138, Glucose 87, Calcium 8.4, Total Bilirubin 0.8, AST 115 H, ALT 117 H, Alkaline Phosphatase 101, Total Protein 6.4, Albumin 3.4 L D, Globulin 3.0, Albumin/Globulin Ratio 1.1 I & O for Last 24 hours: Intake & Output 09/28/21 09/29/21 09/30/21 10/01/21 23:59 23:59 23:59 23:59 Intake Total 2166 / 2166 120 / 120 240 / 240 Output Total 0 / 200 1125 / 1625 2100 / 2200 100 / 100 Balance 2165 -1005 / -1505 -1860 / -1960 -100 / -100 Weight 236 lb 9.6 oz 235 lb 14.314 oz 232 lb 14.4 oz 232 lb 11.2 oz Microbiology Reports for the Last 24 Hours: Microbiology 09/28/21 12:00 Nose - Nasal MRSA Culture - Final Negative - Constitutional mild distress - *Routine HEENT Exam Head: Present: normocephalic Eye: Present: EOMI ENT: Present: mucous membranes moist - *Routine Neck Exam Present: trachea midline. Absent: tracheal deviation - *Routine Respiratory Exam Present: crackles - *Routine Cardiovascular Exam Present: RRR - *Routine Abdominal Exam Present: soft, normoactive bowel sounds. Absent: tenderness, firm - *Routine Extremities Exam Present: full ROM, pulses intact. Absent: cyanosis, clubbing - *Routine Skin Exam Present: dry, warm. Absent: intact, cyanosis - *Routine Neurological Exam Present: alert, oriented X3. Absent: motor deficit Assessment and Plan (1) Obesity (BMI 30-39.9) Status: Acute Category: Medical Code(s): E66.9 - Obesity, unspecified (2) Pneumonia due to COVID-19 virus Status: Acute Category: Medical Code(s): U07.1 - COVID-19; J12.82 - Pneumonia due to coronavirus disease 2019 (3) Respiratory failure with hypoxia Status: Acute Qualifiers: Chronicity: acute Qualified Code(s): J96.01 - Acute respiratory failure with hypoxia Category: Medical Code(s): J96.91 - Respiratory failure, unspecified with hypoxia (4) Renal insufficiency Status: Acute Category: Medical Code(s): N28.9 - Disorder of kidney and ureter, unspecified (5) Elevated liver enzymes Status: Acute Category: Medical Code(s): R74.8 - Abnormal levels of other serum enzymes - Assessment and plan all Dx Assessment and Plan for all problems:: Rounded with Dr. Martin, all orders per Dr. Martin: 1. Continue current medical regimen 2. Wean O2 as tolerated 3. Pulmonology following 4. Pronate
--- NOTE | 2021-10-01 09:27 | XR_ITS ---
PROCEDURE: XR CHEST PORTABLE CLINICAL HISTORY: PNM COMPARISON: CT CT ANGIO CHEST PE PROTOCOL from 09/27/2021 CR XR CHEST PORTABLE from 09/27/2021 FINDINGS: Mild cardiomegaly. No CHF. No obvious effusions There is diffuse bilateral prominence of interstitial markings with patchy ground-glass density in the lower lobes consistent with Covid19 pneumonia. No acute bony abnormalities. IMPRESSION: Diffuse bilateral interstitial pneumonitis consistent with Covid19 pneumonia Dictated by: Mauricio Dobbs MD 10/01/2021 16:49 Mauricio Dobbs MD in [facility] 10/01/2021 16:49
--- NOTE | 2021-10-01 09:45 | HMH.ACPN2 ---
Internal Medicine - PN: Subj *Date: 10/01/21 *Time: 09:45 Exam Vital signs and Labs for Last 24 Hours: Temp Pulse Resp BP Pulse Ox 97.5 F L 68 24 156/76 H 96 10/01/21 08:00 10/01/21 08:00 10/01/21 08:00 10/01/21 08:00 10/01/21 08:00 Laboratory Results - last 24 hr 10/01/21 06:23: WBC 7.6, RBC 5.23, Hgb 16.1, Hct 48.1, MCV 92.0, MCH 30.8, MCHC 33.4, RDW 14.3, Plt Count 214, MPV 10.1, Neut % (Auto) 74.7, Lymph % (Auto) 17.6, [place] % (Auto) 6.6, Eos % (Auto) 0.0 L, Baso % (Auto) 1.1, Neut # (Auto) 5.7, Lymph # (Auto) 1.4, [place] # (Auto) 0.5, Eos # (Auto) 0.0, Baso # (Auto) 0.1 10/01/21 06:23: Sodium 138, Potassium 4.7, Chloride 107, Carbon Dioxide 31 H, Anion Gap 4.7 L, BUN 19, Creatinine 0.70, Estimated Creat Clear 113, Estimated GFR 114, Est GFR ( Amer) 138, Glucose 87, Calcium 8.4, Total Bilirubin 0.8, AST 115 H, ALT 117 H, Alkaline Phosphatase 101, Total Protein 6.4, Albumin 3.4 L D, Globulin 3.0, Albumin/Globulin Ratio 1.1 I & O for Last 24 hours: Intake & Output 09/28/21 09/29/21 09/30/21 10/01/21 23:59 23:59 23:59 23:59 Intake Total 216 / 2166 120 / 120 240 / 240 Output Total 0 / 200 1125 / 1625 2100 / 2200 100 / 100 Balance 2165 -1005 / -1505 -1860 / -1959 -100 / -100 Weight 236 lb 9.6 oz 235 lb 14.314 oz 232 lb 14.4 oz 232 lb 11.2 oz Microbiology Reports for the Last 24 Hours: Microbiology 09/28/21 12:00 Nose - Nasal MRSA Culture - Final Negative Assessment and Plan (1) Obesity (BMI 30-39.9) Status: Acute Category: Medical Code(s): E66.9 - Obesity, unspecified (2) Pneumonia due to COVID-19 virus Status: Acute Category: Medical Code(s): U07.1 - COVID-19; J12.82 - Pneumonia due to coronavirus disease 2019 (3) Respiratory failure with hypoxia Status: Acute Qualifiers: Chronicity: acute Qualified Code(s): J96.01 - Acute respiratory failure with hypoxia Category: Medical Code(s): J96.91 - Respiratory failure, unspecified with hypoxia (4) Renal insufficiency Status: Acute Category: Medical Code(s): N28.9 - Disorder of kidney and ureter, unspecified (5) Elevated liver enzymes Status: Acute Category: Medical Code(s): R74.8 - Abnormal levels of other serum enzymes
--- NOTE | 2021-10-01 09:46 | CA_ITS ---
APPROVED REPORT Bilateral Lower Extremity Venous Study for DVT. Aids Counselor: CT Indications Shortness of breath Covid, SOA Vein Imaging CFV (R): compressive, spontaneous, phasic, augmentation SFJ (R): compressive, spontaneous, phasic, augmentation FEM (R): compressive, spontaneous, phasic, augmentation POP (R): compressive, spontaneous, phasic, augmentation DFV (R): compressive, spontaneous, phasic, augmentation PTV (R): compressive, spontaneous, phasic, augmentation GSV (R): compressive, spontaneous, phasic, augmentation Peroneals (R):compressive, spontaneous, phasic, augmentation GAS (R): compressive, spontaneous, phasic, augmentation CFV (L): compressive, spontaneous, phasic, augmentation SFJ (L): compressive, spontaneous, phasic, augmentation FEM (L): compressive, spontaneous, phasic, augmentation POP (L): compressive, spontaneous, phasic, augmentation DFV (L): compressive, spontaneous, phasic, augmentation PTV (L): compressive, spontaneous, phasic, augmentation GSV (L): compressive, spontaneous, phasic, augmentation Peroneals (L):compressive, spontaneous, phasic, augmentation GAS (L): compressive, spontaneous, phasic, augmentation Findings Bilateral venous negative for SVT/DVT. Vessels conpressible No reflux noted Pt moved thru out exam. Conclusion Bilateral venous negative for SVT/DVT. Vessels conpressible No reflux noted Pt moved thru out exam. Electronically signed by : Mauricio Dobbs MD 10/01/2021 17:21:34
--- NOTE | 2021-10-01 10:50 | HMH.ACPN ---
Internal Medicine - PN: Subj *Date: 10/01/21 *Time: 10:50 Exam Vital signs and Labs for Last 24 Hours: Temp Pulse Resp BP Pulse Ox 97.5 F L 68 24 156/76 H 96 10/01/21 08:00 10/01/21 08:00 10/01/21 08:00 10/01/21 08:00 10/01/21 08:00 Laboratory Results - last 24 hr 10/01/21 06:23: WBC 7.6, RBC 5.23, Hgb 16.1, Hct 48.1, MCV 92.0, MCH 30.8, MCHC 33.4, RDW 14.3, Plt Count 214, MPV 10.1, Neut % (Auto) 74.7, Lymph % (Auto) 17.6, [place] % (Auto) 6.6, Eos % (Auto) 0.0 L, Baso % (Auto) 1.1, Neut # (Auto) 5.7, Lymph # (Auto) 1.4, [place] # (Auto) 0.5, Eos # (Auto) 0.0, Baso # (Auto) 0.1 10/01/21 06:23: Sodium 138, Potassium 4.7, Chloride 107, Carbon Dioxide 31 H, Anion Gap 4.7 L, BUN 19, Creatinine 0.70, Estimated Creat Clear 113, Estimated GFR 114, Est GFR ( Amer) 138, Glucose 87, Calcium 8.4, Total Bilirubin 0.8, AST 115 H, ALT 117 H, Alkaline Phosphatase 101, Total Protein 6.4, Albumin 3.4 L D, Globulin 3.0, Albumin/Globulin Ratio 1.1 I & O for Last 24 hours: Intake & Output 09/28/21 09/29/21 09/30/21 10/01/21 23:59 23:59 23:59 23:59 Intake Total 216 / 2166 120 / 120 240 / 240 Output Total 0 / 200 1125 / 1625 2100 / 2200 100 / 100 Balance 2165 -1005 / -1505 -1860 / -1959 -100 / -100 Weight 107.32 kg 107 kg 105.642 kg 105.551 kg Microbiology Reports for the Last 24 Hours: Microbiology 09/28/21 12:00 Nose - Nasal MRSA Culture - Final Negative Assessment and Plan (1) Obesity (BMI 30-39.9) Status: Acute Category: Medical Code(s): E66.9 - Obesity, unspecified (2) Pneumonia due to COVID-19 virus Status: Acute Category: Medical Code(s): U07.1 - COVID-19; J12.82 - Pneumonia due to coronavirus disease 2019 (3) Respiratory failure with hypoxia Status: Acute Qualifiers: Chronicity: acute Qualified Code(s): J96.01 - Acute respiratory failure with hypoxia Category: Medical Code(s): J96.91 - Respiratory failure, unspecified with hypoxia (4) Renal insufficiency Status: Acute Category: Medical Code(s): N28.9 - Disorder of kidney and ureter, unspecified (5) Elevated liver enzymes Status: Acute Category: Medical Code(s): R74.8 - Abnormal levels of other serum enzymes The patient's infection will respond to the chosen ABx?: Yes Is the patient receiving the right drug, dose, and route?: Yes Could a more targeted ABx be ordered?: No
--- NOTE | 2021-10-01 11:07 | DIET.NUTRFU ---
During rounds patient indicated poor intake at breakfast, no significant weight loss during stay. CBW is 105kg and admit weight was 106kg. Hydration is WNL, liver enzymes still elevated and albumin depleted. No hx of DM glucose has been slightly elevated possibly due to steroid tx. Will start glucerna BID to help meet nutritional needs. He also continues on zinc and vitamin C for additional support.
--- NOTE | 2021-10-01 11:14 | HMH.PULMPN ---
Internal Medicine - PN: Subj *Date: 10/01/21 *Time: 11:14 Interval history: Patient respiratory status has been relatively stable in the last 24 hours. He has been noncompliant with recommendations, not following proning protocol intermittent removing his HF-nasal cannula. Exam - Constitutional Constitutional:: Present: no acute distress, comfortable - HENMT Exam HENMT: Present: normocephalic, atraumatic - Eye Exam Eyes:: Present: normal appearance both eyes and related structures - Neck Exam Neck:: Present: normal visual inspection - Respiratory Exam Respiratory:: Present: able to speak in complete sentences, respiratory distress, rales. Absent: wheezing - Cardiovascular Exam Cardiac:: Present: S1, S2 - GI Exam GI:: Present: soft, no hepatosplenomegaly - Skin Exam Skin: Present: warm, no rash - Neurological Exam Neurological: Present: alert, awake - Extremities Exam Extremities: Present: no cyanosis, no clubbing, no edema Assessment and Plan (1) Obesity (BMI 30-39.9) Status: Acute Category: Medical Code(s): E66.9 - Obesity, unspecified (2) Pneumonia due to COVID-19 virus Status: Acute Category: Medical Code(s): U07.1 - COVID-19; J12.82 - Pneumonia due to coronavirus disease 2019 (3) Respiratory failure with hypoxia Status: Acute Qualifiers: Chronicity: acute Qualified Code(s): J96.01 - Acute respiratory failure with hypoxia Category: Medical Code(s): J96.91 - Respiratory failure, unspecified with hypoxia (4) Renal insufficiency Status: Acute Category: Medical Code(s): N28.9 - Disorder of kidney and ureter, unspecified (5) Elevated liver enzymes Status: Acute Category: Medical Code(s): R74.8 - Abnormal levels of other serum enzymes - Assessment and plan all Dx Assessment and Plan for all problems:: #Acute hypoxic respiratory failure: #COVID-19 pneumonia: Current smoker greater than [id number] smoking history. Yet to be vaccinated. COVID-19 PCR positive. Flu a and B-. CTA did not show any evidence of pulmonary emboli however showed bilateral diffuse lower lobe predominant groundglass opacities concerning for COVID-19 pneumonia. Significantly elevated inflammatory markers. Patient was initiated on remdesivir dexamethasone and baricitinib on admission. Interval update: Patient respiratory status has been relatively stable in the last 24 hours. He has been noncompliant with recommendations, not following proning protocol intermittent removing his HF-nasal cannula. No evidence of edema noted on today's examination. His FiO2 was weaned to 50%. Nasal MRSA PCR negative. Blood cultures no growth 48 hours. Chest x-ray from today, stable left side, improving infiltrates on the right lower lung hernandez. Plan: Continue proning protocol. Discussed the benefits and risks again today DuoNebs every 6 hours scheduled along with budesonide every 12 Ceftriaxone and azithromycin. Continue high flow nasal oxygen supplementation, wean as tolerated Continue remdesivir dexamethasone and baricitinib for COVID-19 pneumonia. # Patient also noted to have mediastinal and hilar lymphadenopathy which can well be reactive. No recent prior x-rays or CT imaging available for further review. This needs to be followed as an outpatient basis, with respect to the lymphadenopathy and the possibility of underlying ILD.
--- NOTE | 2021-10-01 12:33 | PC.NURSE ---
patient continues to take off Vapotherm cannula & has ripped out IV x2.
[2021-10-02] VITALS (11 sets, daily range): BP systolic 140–161; BP diastolic 75–93; PULSE 64–110; RESP 20–28; TEMP 36.4–37.6; O2SAT 74–94; BMI 31.9
--- NOTE | 2021-10-02 03:06 | PC.NURSE ---
PT IS A&OX4, ABLE TO ANSWER ALL QUESTIONS, BUT SEEMS CONFUSED AND SLOW TO ANSWER AT TIMES. PT IS CONTINUOUSLY TAKING VAPOTHERM OFF AND REQUIRING REDIRECTION. PT IS VERY RESTLESS AND ANXIOUS THIS SHIFT. HAVE NOTIFIED -FRED AT THIS TIME. PT UP TO CHAIR WITH STANDBY ASSIST. WHEN PT HAS VAPOTHERM ON, O2 GETS UP TO 94%. WHEN REMOVED WILL GO LOW 70%. HAVE EDUCATED PT ON PRONING AND USE OF IS. BED SAFETY ON. COVID PRECAUTIONS IN PLACE. PT DOES STATE THAT THE VAPOTHERM MAKES HIS SINUSES FEEL BAD . PT HAS ALSO REFUSED TO ALLOW NEW IV PLACEMENT. VSS WILL CONTINUE TO MONITOR.
--- NOTE | 2021-10-02 03:44 | PC.NURSE ---
NEW IV PLACED AND ATIVAN ADMINISTERED PER MD VILLAR. PT TOLERATED WELL.
[2021-10-02 06:58] LABS: Chloride 104 mmol/L (98-107)
[2021-10-02 06:59] LABS: Potassium 4.2 mmoL/L (3.5-5.1); Sodium 141 mmol/L (136-145)
[2021-10-02 07:01] LABS: Alanine Aminotransferase 232 U/L (12-78); Alkaline Phosphatase 106 U/L (38-126); Aspartate Amino Transferase 197 U/L (17-59); Bilirubin,Total 1.2 mg/dl (0.2-1.3); Blood Urea Nitrogen 18 mg/dl (9-20); Creatinine Clearance Estimated 111 mL/min (50-200); Estimated Glomerular Filt Rate 98 ml/min (>60); GFR (African American) 118 ML/MIN (>60)
[2021-10-02 07:02] LABS: Anion Gap 14.2 mEq/L (5-15); Calcium 8.9 mg/dl (8.4-10.2); Carbon Dioxide 27 mmol/L (22.0-30.0); Glucose 83 mg/dl (74-100); Total Protein,Serum 7.2 g/dl (6.3-8.2)
[2021-10-02 07:08] LABS: C-Reactive Protein 32.9 mg/L (0-4)
[2021-10-02 07:45] LABS: ABG HCO3 19 mmhg (22.0-26.0); ABG PH 7.47 mmol/L (7.35-7.45); ABG PO2 62.7 mmhg (80-100)
[2021-10-02 07:46] LABS: ABG Base Excess -2.9 mmol/L (-2.4-2.3); ABG Oxygen Saturation 92 % (90-100); ABG TCO2 19.9 mmhg (23-27); Allen's Test ACCEPTABLE; Oxygen 70% %; Source R RADIAL
[2021-10-02 08:01] LABS: Basophils # 0.1 K/mm3 (0-0.2); Basophils % 0.8 % (0.1-2.0); Eosinophils % 0.1 % (0.1-12.0); Hematocrit 52.4 % (42.0-52.0); Hemoglobin 17.8 g/dL (14.1-18.0); Lymphocytes # 1.6 K/mm3 (0.7-4.5); Lymphocytes % 15.5 % (10-50); Mean Corpuscular HGB Conc 33.9 g/dL (31.8-35.4); Mean Corpuscular Hemoglobin 31.3 pg (27.0-31.2); Mean Corpuscular Volume 92.5 fl (80-94); Mean Platelet Volume 9.6 fl (7.4-10.4); Monocytes # 0.8 K/mm3 (0.1-1.0); Neutrophils # 7.6 K/mm3 (1.8-7.8); Neutrophils % 75.6 % (37.0-80.0); Platelet Count 205 K/mm3 (142-424); Red Blood Count 5.67 M/mm3 (4.60-6.20); Red Cell Distribution Width 13.8 % (11.5-17.5)
[2021-10-02 10:04] LABS: Albumin/Globulin Ratio 1.3 (1.1-1.8); Globulin 3.2 g/dL (1.3-3.2)
--- NOTE | 2021-10-02 10:50 | HMH.PULMPN ---
Internal Medicine - PN: Subj *Date: 10/02/21 *Time: 10:50 Interval history: No acute reported respiratory vents overnight. Patient is noncompliant proning protocol. Continue to remove high flow nasal cannula. Appeared confused. Denies any improvement in symptoms. Exam - Constitutional Constitutional:: Present: no acute distress, comfortable - HENMT Exam HENMT: Present: normocephalic - Eye Exam Eyes:: Present: normal appearance both eyes and related structures - Neck Exam Neck:: Present: normal visual inspection - Respiratory Exam Respiratory:: Present: able to speak in complete sentences, respiratory distress, crackles - Cardiovascular Exam Cardiac:: Present: S1, S2 - GI Exam GI:: Present: soft, no hepatosplenomegaly - Skin Exam Skin: Present: warm - Neurological Exam Neurological: Present: awake. Absent: normal cognition, oriented X3 - Extremities Exam Extremities: Present: no cyanosis, no clubbing, edema Assessment and Plan (1) Obesity (BMI 30-39.9) Status: Acute Category: Medical Code(s): E66.9 - Obesity, unspecified (2) Pneumonia due to COVID-19 virus Status: Acute Category: Medical Code(s): U07.1 - COVID-19; J12.82 - Pneumonia due to coronavirus disease 2019 (3) Respiratory failure with hypoxia Status: Acute Qualifiers: Chronicity: acute Qualified Code(s): J96.01 - Acute respiratory failure with hypoxia Category: Medical Code(s): J96.91 - Respiratory failure, unspecified with hypoxia (4) Renal insufficiency Status: Acute Category: Medical Code(s): N28.9 - Disorder of kidney and ureter, unspecified (5) Elevated liver enzymes Status: Acute Category: Medical Code(s): R74.8 - Abnormal levels of other serum enzymes - Assessment and plan all Dx Assessment and Plan for all problems:: #Acute hypoxic respiratory failure: #COVID-19 pneumonia: Current smoker greater than 63-deoh-gwav smoking history. Yet to be vaccinated. COVID-19 PCR positive. Flu a and B-. CTA did not show any evidence of pulmonary emboli however showed bilateral diffuse lower lobe predominant groundglass opacities concerning for COVID-19 pneumonia. Venous Doppler negative for DVT Significantly elevated inflammatory markers. Patient was initiated on remdesivir dexamethasone and baricitinib on admission. Interval update: Blood gas from yesterday did not show any evidence of hypercarbia. Patient continued to be noncompliant with proning protocol. He continues to remove his HFNC, he appeared more confused. CRP improving Auscultation revealed bibasilar crackles. Oxygen requirements increased to 60%. Continue to remain on 30 L flow. Plan: Serum Ammonia levels. Closely monitor LFT Discontinue maintenance fluids, Lasix 40 mg IV once Continue proning protocol. Discussed the benefits and risks again today DuoNebs every 6 hours scheduled along with budesonide every 12 Ceftriaxone and azithromycin. Continue high flow nasal oxygen supplementation, wean as tolerated Continue remdesivir dexamethasone and baricitinib for COVID-19 pneumonia. # Patient also noted to have mediastinal and hilar lymphadenopathy which can well be reactive. No recent prior x-rays or CT imaging available for further review. This needs to be followed as an outpatient basis, with respect to the lymphadenopathy and the possibility of underlying ILD.
[2021-10-02 12:05] LABS: Ammonia < 9 umol/L (9-30)
[2021-10-02 12:07] LABS: Vitamin B12 911 pg/mL (239-931)
--- NOTE | 2021-10-02 15:14 | P.PN_ITS ---
Internal Medicine - PN: Subj *Date: 10/03/21 *Time: 09:25 Interval history: pt with increased confusion -on vapor therm Exam Vital signs and Labs for Last 24 Hours: Temp Pulse Resp BP Pulse Ox 99.6 F 98 H 24 140/82 90 L 10/02/21 11:50 10/02/21 11:50 10/02/21 11:50 10/02/21 11:50 10/02/21 11:50 Laboratory Results - last 24 hr 10/01/21 09:00: Specimen Source R radial, O2 % 70%, ABG pH 7.47 H, ABG pCO2 27.0 L, ABG pO2 62.7 L, ABG HCO3 19 L, ABG Total CO2 19.9 L, ABG O2 Saturation 92, ABG Base Excess -2.9 L, Mauricio Test Acceptable 10/02/21 06:30: WBC 10.0 D, RBC 5.67, Hgb 17.8, Hct 52.4 H, MCV 92.5, MCH 31.3 H, MCHC 33.9, RDW 13.8, Plt Count 205, MPV 9.6, Neut % (Auto) 75.6, Lymph % (Auto) 15.5, [place] % (Auto) 8.0, Eos % (Auto) 0.1, Baso % (Auto) 0.8, Neut # (Auto) 7.6, Lymph # (Auto) 1.6, [place] # (Auto) 0.8, Eos # (Auto) 0.0, Baso # (Auto) 0.1 10/02/21 06:30: Sodium 141, Potassium 4.2, Chloride 104, Carbon Dioxide 27, Anion Gap 14.2, BUN 18, Creatinine 0.80, Estimated Creat Clear 111, Estimated GFR 98, Est GFR ( Amer) 118, Glucose 83, Calcium 8.9, Total Bilirubin 1.2, AST 197 H D, ALT 232 H D, Alkaline Phosphatase 106, C-Reactive Protein 32.9 H, Total Protein 7.2, Albumin 4.0 D, Globulin 3.2, Albumin/Globulin Ratio 1.3 10/02/21 06:30: Vitamin B12 911 10/02/21 11:35: Ammonia < 9 L I & O for Last 24 hours: Intake & Output 09/30/21 10/01/21 10/02/21 12/11/21 11:59 11:59 11:59 11:59 Intake Total 240 / 240 120 / 120 60 / 60 Output Total 1275 / 1275 925 / 925 100 / 100 400 / 400 Balance -1035 / -1035 -805 / -805 -40 / -40 -400 / -400 Weight 232 lb 14.4 oz 232 lb 11.2 oz 228 lb 3.2 oz Microbiology Reports for the Last 24 Hours: Microbiology 09/27/21 12:22 Blood Blood Culture - Final NO GROWTH AFTER 5 DAYS 09/27/21 12:19 Blood Blood Culture - Final NO GROWTH AFTER 5 DAYS - Constitutional no acute distress - *Routine HEENT Exam Head: Present: normocephalic Eye: Present: EOMI, PERRL ENT: Present: mucous membranes dry - *Routine Neck Exam Present: supple. Absent: JVD - *Routine Respiratory Exam Present: CTA bilaterally - *Routine Cardiovascular Exam Present: RRR, murmur - *Routine Abdominal Exam Present: soft - *Routine Extremities Exam Absent: calf tenderness - *Routine Skin Exam Present: intact - *Routine Neurological Exam Present: alert, CN II-XII intact - Routine Psychiatric Exam Present: normal affect Assessment and Plan (1) Obesity (BMI 30-39.9) Status: Acute Category: Medical Code(s): E66.9 - Obesity, unspecified (2) Pneumonia due to COVID-19 virus Status: Acute Category: Medical Code(s): U07.1 - COVID-19; J12.82 - Pneumonia due to coronavirus disease 2019 (3) Respiratory failure with hypoxia Status: Acute Qualifiers: Chronicity: acute Qualified Code(s): J96.01 - Acute respiratory failure with hypoxia Category: Medical Code(s): J96.91 - Respiratory failure, unspecified with hypoxia (4) Renal insufficiency Status: Acute Category: Medical Code(s): N28.9 - Disorder of kidney and ureter, unspecified (5) Elevated liver enzymes Status: Acute Category: Medical Code(s): R74.8 - Abnormal levels of other serum enzymes
[2021-10-03] VITALS (20 sets, daily range): BP systolic 89–160; BP diastolic 53–96; PULSE 72–109; RESP 0–27; TEMP 36.4–36.6; O2SAT 85–100; BMI 28.9
--- NOTE | 2021-10-03 05:27 | PC.NURSE ---
pt has been restless this shift, has been up to chair and back to bed several times, has removed O2 several times this shift, educated on importance of keeping O2 on, sats drop to mid 70's when O2 removed but recovers back to high 80's to low 90's within 2 to 3 minutes, no complaints of pain or SOA
--- NOTE | 2021-10-03 09:19 | PC.NURSE ---
pt has gotten up mutiple times despite staff education. He continues to remove his oxygen and saturation drops. Bed alarm is in place but pt continues to be noncompliant.
--- NOTE | 2021-10-03 09:27 | P.PN_ITS ---
Internal Medicine - PN: Subj *Date: 10/03/21 *Time: 09:27 Interval history: still at times non-compliant with vaportherm - no fever - pt w/o specific c/o Exam Vital signs and Labs for Last 24 Hours: Temp Pulse Resp BP Pulse Ox 97.8 F 73 24 152/54 H 90 L 10/03/21 08:00 10/03/21 08:00 10/03/21 08:00 10/03/21 08:00 10/03/21 08:00 Laboratory Results - last 24 hr 10/02/21 06:30: Albumin 4.0 D, Globulin 3.2, Albumin/Globulin Ratio 1.3 10/02/21 06:30: Vitamin B12 911 10/02/21 11:35: Ammonia < 9 L I & O for Last 24 hours: Intake & Output 09/30/21 10/01/21 10/02/21 10/03/21 11:59 11:59 11:59 11:59 Intake Total 240 / 240 120 / 120 60 / 60 220 / 220 Output Total 1275 / 1275 925 / 925 100 / 100 400 / 400 Balance -1035 / -1035 -805 / -805 -40 / -40 -180 / -180 Weight 232 lb 14.4 oz 232 lb 11.2 oz 228 lb 3.2 oz 206 lb 6.983 oz Microbiology Reports for the Last 24 Hours: Microbiology 09/27/21 12:22 Blood Blood Culture - Final NO GROWTH AFTER 5 DAYS 09/27/21 12:19 Blood Blood Culture - Final NO GROWTH AFTER 5 DAYS - Constitutional no acute distress - *Routine HEENT Exam Head: Present: normocephalic Eye: Present: EOMI, PERRL ENT: Present: mucous membranes dry - *Routine Neck Exam Absent: JVD - *Routine Respiratory Exam Present: decreased breath sounds - *Routine Cardiovascular Exam Present: RRR, murmur. Absent: rubs, S3 - *Routine Abdominal Exam Present: soft - *Routine Extremities Exam Absent: calf tenderness - *Routine Skin Exam Present: intact - *Routine Neurological Exam Present: CN II-XII intact, altered mental status, moving all extremities - Routine Psychiatric Exam Present: unable to assess Assessment and Plan (1) Obesity (BMI 30-39.9) Status: Acute Category: Medical Code(s): E66.9 - Obesity, unspecified (2) Pneumonia due to COVID-19 virus Status: Acute Category: Medical Code(s): U07.1 - COVID-19; J12.82 - Pne umonia due to coronavirus disease 2019 (3) Respiratory failure with hypoxia Status: Acute Qualifiers: Chronicity: acute Qualified Code(s): J96.01 - Acute respiratory failure with hypoxia Category: Medical Code(s): J96.91 - Respiratory failure, unspecified with hypoxia (4) Renal insufficiency Status: Acute Category: Medical Code(s): N28.9 - Disorder of kidney and ureter, unspecified (5) Elevated liver enzymes Status: Acute Category: Medical Code(s): R74.8 - Abnormal levels of other serum enzymes
--- NOTE | 2021-10-03 09:53 | HMH.ACPN ---
Internal Medicine - PN: Subj *Date: 10/03/21 *Time: 09:53 Exam Vital signs and Labs for Last 24 Hours: Temp Pulse Resp BP Pulse Ox 97.8 F 73 24 152/54 H 90 L 10/03/21 08:00 10/03/21 08:00 10/03/21 08:00 10/03/21 08:00 10/03/21 08:00 Laboratory Results - last 24 hr 10/02/21 06:30: Albumin 4.0 D, Globulin 3.2, Albumin/Globulin Ratio 1.3 10/02/21 06:30: Vitamin B12 911 10/02/21 11:35: Ammonia < 9 L I & O for Last 24 hours: Intake & Output 09/30/21 10/01/21 10/02/21 10/03/21 23:59 23:59 23:59 23:59 Intake Total 240 / 240 60 / 60 220 / 220 Output Total 2100 / 2200 100 / 100 500 / 500 Balance -1860 / -1960 -40 / -40 -280 / -280 Weight 105.642 kg 105.551 kg 103.51 kg 93.638 kg Microbiology Reports for the Last 24 Hours: Microbiology 09/27/21 12:22 Blood Blood Culture - Final NO GROWTH AFTER 5 DAYS 09/27/21 12:19 Blood Blood Culture - Final NO GROWTH AFTER 5 DAYS Assessment and Plan (1) Obesity (BMI 30-39.9) Status: Acute Category: Medical Code(s): E66.9 - Obesity, unspecified (2) Pneumonia due to COVID-19 virus Status: Acute Category: Medical Code(s): U07.1 - COVID-19; J12.82 - Pneumonia due to coronavirus disease 2019 (3) Respiratory failure with hypoxia Status: Acute Qualifiers: Chronicity: acute Qualified Code(s): J96.01 - Acute respiratory failure with hypoxia Category: Medical Code(s): J96.91 - Respiratory failure, unspecified with hypoxia (4) Renal insufficiency Status: Acute Category: Medical Code(s): N28.9 - Disorder of kidney and ureter, unspecified (5) Elevated liver enzymes Status: Acute Category: Medical Code(s): R74.8 - Abnormal levels of other serum enzymes The patient's infection will respond to the chosen ABx?: Yes Is the patient receiving the right drug, dose, and route?: Yes Could a more targeted ABx be ordered?: No
--- NOTE | 2021-10-03 10:27 | PC.NURSE ---
spoke with MD regarding pt noncompliance and continuing to pull off his o2
[2021-10-03 11:49] LABS: Alanine Aminotransferase 263 U/L (12-78); Albumin Level 3.8 g/dl (3.5-5.0); Albumin/Globulin Ratio 1.3 (1.1-1.8); Alkaline Phosphatase 99 U/L (38-126); Anion Gap 13.3 mEq/L (5-15); Aspartate Amino Transferase 149 U/L (17-59); Blood Urea Nitrogen 22 mg/dl (9-20); Calcium 8.8 mg/dl (8.4-10.2); Carbon Dioxide 21 mmol/L (22.0-30.0); Chloride 107 mmol/L (98-107); Creatinine Clearance Estimated 100 mL/min (50-200); Estimated Glomerular Filt Rate 98 ml/min (>60); GFR (African American) 118 ML/MIN (>60); Glucose 121 mg/dl (74-100); Potassium 4.3 mmoL/L (3.5-5.1); Sodium 137 mmol/L (136-145); Total Protein,Serum 6.8 g/dl (6.3-8.2)
--- NOTE | 2021-10-03 14:55 | PC.NURSE ---
spoke with MD regarding pt being increasingly noncompliant and violent. I will speak to the regarding options
--- NOTE | 2021-10-03 15:33 | P.PN_ITS ---
Critical Care Event Note Code activated: No Narrative: This case had a high probability of a clinically significant, sudden, or life threatening deterioration of this patient's condition which required my full and direct attention, intervention and personal management. Called to intubate the patient. He has Covid pneumonia with hypoxic respiratory failure and has been on Vapotherm, but is confused, combative, and refusing to keep on his Vapotherm. Attending physicians for the patient requests that I intubate the patient. The patient is extremely confused upon my arrival, unable to communicate with him. He is combative and restless. He is on nonrebreather mask with a pulse ox of 90%. Endotracheal Intubation Performed by: YUDITH ABARCA Consent: The procedure was performed in an emergent situation. Patient identity confirmed: arm band Indications: airway protection respiratory failure Intubation method: rapid sequence intubation with sedation and NMB Pretreatment medications: None Sedatives: Etomidate 25 mg Paralytic: Rocuronium 100 mg Laryngoscope: [place] scope Tube size: 8.0 mm Tube type: cuffed Number of attempts: 1 Cords visualized: yes Post-procedure assessment: chest rise and CO2 detector Breath sounds: equal and absent over the epigastrium Cuff inflated: yes ETT to teeth: 22 cm Tube secured with: ETT alejandro CXR pending. ABG and sedation ordered. Patient tolerance: Patient tolerated the procedure well with no immediate complications. Critical care time: less than 30 mins [facility] Critical Care Exam Vital signs: Temp Pulse Resp BP Pulse Ox 97.8 F 100 H 26 H 150/78 H 87 L 10/03/21 12:00 10/03/21 12:00 10/03/21 12:00 10/03/21 12:10/03/21 12:00
--- NOTE | 2021-10-03 15:36 | XR_ITS ---
PROCEDURE INFORMATION: Exam: XR Chest Exam date and time: 10/03/2021 3:36 PM Age: 61 years old Clinical indication: Device placement; Ett placement (vent status); Additional info: Tube position TECHNIQUE: Imaging protocol: XR of the chest. Views: 1 view. COMPARISON: CR XR CHEST PORTABLE 10/01/2021 9:59 AM FINDINGS: Tubes, catheters and devices: Endotracheal tube tip approximately 5 cm above the ludmila. Enteric tube below the level of the radiograph, likely in the stomach. Lungs: Bilateral mid and lower lung zone patchy ground-glass and small consolidations, similar to minimally increased from comparison study, likely multifocal pneumonia. Pleural spaces: Unremarkable. No pleural effusion. No pneumothorax. Heart/Mediastinum: Normal. Bones/joints: No acute abnormality. IMPRESSION: 1. Endotracheal tube tip approximately 5 cm above the ludmila. 2. Bilateral mid and lower lung zone patchy ground-glass and small consolidations, similar to minimally increased from comparison study, likely multifocal pneumonia.
--- NOTE | 2021-10-03 15:42 | PC.NURSE ---
notified ER Doc of pt decline and noncompliance,desaturation. pt to be transferre to ICU and set up for intubation
[2021-10-03 15:48] LABS: Microscopic,Cath URINE MICROSCOPIC (MICROSCOPIC)
--- NOTE | 2021-10-03 15:51 | PC.NURSE ---
1520- Etomidate and Rocuronium given per Dr Raza at bedside 1525- Intubated at this time per Dr Raza with 8.0 ETT 22@lip 1527- Martínez catheter placed at this time and OG tube placed 1535- Portable CXR completed, awaiting verification of placement of tubes
[2021-10-03 16:12] LABS: Appearance,Urine/Cath CLEAR (Clear); Bilirubin,Cath Negative (Negative); Blood, Urine/Cath Negative (Negative); Color,Urine/Cath ORANGE (Yellow); Glucose,Urine/Cath (UA) Negative (Negative); Ketones,Urine/Cath 1+ (Negative); Leukocyte Esterase,Cath Negative (Negative); Nitrate,Cath Negative (Negative); Protein,Urine/Cath TRACE (Negative); Specific Gravity, Urine/Cath >= 1.030 (1.005-1.030); Urobilinogen,Cath 0.2 EU/dl (0.2)
[2021-10-03 16:30] LABS: Bacteria,Urine/Cath TRACE /lpf; WBC,Urine/Cath Occasional #/hpf (0-3)
[2021-10-03 16:54] LABS: ABG Base Excess -7.4 mmol/L (-2.4-2.3); ABG HCO3 20.7 mmhg (22.0-26.0); ABG Oxygen Saturation 95 % (90-100); ABG PO2 96.4 mmhg (80-100); ABG TCO2 22.4 mmhg (23-27)
--- NOTE | 2021-10-03 16:57 | PC.WOUNDNOTE ---
coccyx skin assessment
[2021-10-03 17:03] LABS: ABG PH 7.19 mmol/L (7.35-7.45); Allen's Test Patient Unable; Oxygen 80 %; PEEP 8; Source Right Radial; Tidal Volume 440; Vent Rate 18
[2021-10-04] VITALS (31 sets, daily range): BP systolic 91–130; BP diastolic 52–77; PULSE 57–74; RESP 18–28; TEMP 36.4–37.1; O2SAT 95–100; BMI 28.8
--- NOTE | 2021-10-04 06:00 | XR_ITS ---
PROCEDURE INFORMATION: Exam: XR Chest Exam date and time: 10/04/2021 6:00 AM Age: 61 years old Clinical indication: Device placement; Ett placement (vent status); Additional info: Follow up post intubation check vent status TECHNIQUE: Imaging protocol: XR of the chest. Views: 1 view. COMPARISON: CR XR CHEST PORTABLE 10/03/2021 3:39 PM FINDINGS: Tubes, catheters and devices: The nasogastric tube is in good position. Lungs: Bit bibasilar infiltrates Pleural spaces: Unremarkable. No pleural effusion. No pneumothorax. Heart/Mediastinum: Unremarkable. No cardiomegaly. Bones/joints: Unremarkable. IMPRESSION: Stable exam.
--- NOTE | 2021-10-04 06:53 | PC.NURSE ---
Prop at 40, fent at 75, NS @ 100. Sats >90 throughout shift. oral care q2h and prn, turned q2h, heels floated. full bed bath and linen change.
[2021-10-04 07:41] LABS: ABG Base Excess -6.9 mmol/L (-2.4-2.3); ABG HCO3 19.7 mmhg (22.0-26.0); ABG Oxygen Saturation 99 % (90-100); ABG PCO2 42.6 mmhg (35.0-45.0); ABG PH 7.28 mmol/L (7.35-7.45); ABG PO2 150.9 mmhg (80-100); ABG TCO2 21.1 mmhg (23-27)
[2021-10-04 07:46] LABS: Allen's Test Patient Unable; Oxygen 80% %; PEEP 8; Source Right Radial; Tidal Volume 440; Vent Rate 24
[2021-10-04 07:48] LABS: Lactate Arterial 0.9 mmol/L (0.4-2.0)
--- NOTE | 2021-10-04 09:17 | DIET.NUTRFU ---
RD consulted to initiate TF. Patient is now in a ventilator. Last labs on 10/03: Na 137, K 4.3, BUN 22, Cr 0.8, glucose 121. Pt is receiving IVF, once TF starts change management to flush of 50ml/hr= 1150ml/day. TF of [facility]m[employer] start at 20ml/hr as tolerated increase to 60ml/hr providing 2070kcal, 86gm protein and 1083ml free water for total fluid of 2283ml/day. Propofol in place providing 110kcal/day. Meeting 100% of nutritional needs.
[2021-10-04 09:51] LABS: Basophils # 0.1 K/mm3 (0-0.2); Basophils % 0.4 % (0.1-2.0); Eosinophils # 0.1 K/mm3 (0.0-0.4); Eosinophils % 0.7 % (0.1-12.0); Hematocrit 44.7 % (42.0-52.0); Hemoglobin 14.4 g/dL (14.1-18.0); Lymphocytes # 1.7 K/mm3 (0.7-4.5); Lymphocytes % 14.4 % (10-50); Mean Corpuscular HGB Conc 32.3 g/dL (31.8-35.4); Mean Corpuscular Hemoglobin 30.4 pg (27.0-31.2); Mean Corpuscular Volume 94.2 fl (80-94); Mean Platelet Volume 10.1 fl (7.4-10.4); Monocytes # 0.8 K/mm3 (0.1-1.0); Monocytes % 6.7 % (1.7-9.3); Neutrophils % 77.8 % (37.0-80.0); Platelet Count 206 K/mm3 (142-424); Red Blood Count 4.74 M/mm3 (4.60-6.20); Red Cell Distribution Width 13.8 % (11.5-17.5); White Blood Count 11.6 K/mm3 (4.8-10.8)
[2021-10-04 09:54] LABS: Chloride 108 mmol/L (98-107); Sodium 138 mmol/L (136-145)
[2021-10-04 09:56] LABS: Alanine Aminotransferase 172 U/L (12-78); Alkaline Phosphatase 40 U/L (38-126); Aspartate Amino Transferase 80 U/L (17-59); Bilirubin,Total 0.8 mg/dl (0.2-1.3); Blood Urea Nitrogen 24 mg/dl (9-20); Creatinine Clearance Estimated 100 mL/min (50-200); Estimated Glomerular Filt Rate 98 ml/min (>60); GFR (African American) 118 ML/MIN (>60)
[2021-10-04 09:57] LABS: Albumin Level 3.1 g/dl (3.5-5.0); Anion Gap 8.1 mEq/L (5-15); Calcium 7.6 mg/dl (8.4-10.2); Carbon Dioxide 28 mmol/L (22.0-30.0); Glucose 81 mg/dl (74-100); Total Protein,Serum 6.1 g/dl (6.3-8.2)
[2021-10-04 10:23] LABS: Potassium 5.9 mmoL/L (3.5-5.1)
--- NOTE | 2021-10-04 10:38 | HMH.ACPN2 ---
Internal Medicine - PN: Subj *Date: 10/05/21 *Time: 06:47 Interval history: pt required intubation - setting stable at this time Exam Vital signs and Labs for Last 24 Hours: Temp Pulse Resp BP Pulse Ox 97.6 F 67 18 103/58 L 100 10/04/21 08:00 10/04/21 10:00 10/04/21 10:00 10/04/21 10:00 10/04/21 10:00 Laboratory Results - last 24 hr 10/03/21 05:40: Sodium 137, Potassium 4.3, Chloride 107, Carbon Dioxide 21 L, Anion Gap 13.3, BUN 22 H, Creatinine 0.80, Estimated Creat Clear 100, Estimated GFR 98, Est GFR ( Amer) 118, Glucose 121 H D, Calcium 8.8, Total Bilirubin 1.0, AST 149 H, ALT 263 H, Alkaline Phosphatase 99, Total Protein 6.8, Albumin 3.8, Globulin 3.0, Albumin/Globulin Ratio 1.3 10/03/21 15:35: Urine Color [place], Urine Appearance Clear, Urine pH 6.0, Ur Specific [place] >= 1.030, Urine Protein Trace, Urine Glucose (UA) Negative, Urine Ketones 1+, Urine Blood Negative, Urine Nitrate Negative, Urine Bilirubin Negative, Urine Urobilinogen 0.2, Ur Leukocyte Esterase Negative, Urine RBC 5-10, Urine WBC Occasional, Ur Squamous Epith Cells None, Urine Bacteria Trace 10/03/21 16:30: Specimen Source Right radial, O2 % 80, ABG pH 7.19 L*, ABG pCO2 55.0 H, ABG pO2 96.4, ABG HCO3 20.7 L, ABG Total CO2 22.4 L, ABG O2 Saturation 95, ABG Base Excess -7.4 L, Mauricio Test Patient unable, Vent Rate 18, Tidal Volume 440, PEEP 8 10/04/21 06:00: Specimen Source Right radial, O2 % 80%, ABG pH 7.28 L, ABG pCO2 42.6, ABG pO2 150.9 H, ABG HCO3 19.7 L, ABG Total CO2 21.1 L, ABG O2 Saturation 99, ABG Base Excess -6.9 L, Mauricio Test Patient unable, Vent Rate 24, Tidal Volume 440, PEEP 8 10/04/21 07:31: ABG Lactate 0.9 10/04/21 09:35: Sodium 138, Potassium 5.9 H D, Chloride 108 H, Carbon Dioxide 28, Anion Gap 8.1, BUN 24 H, Creatinine 0.80, Estimated Creat Clear 100, Estimated GFR 98, Est GFR ( Amer) 118, Glucose 81, Calcium 7.6 L, Total Bilirubin 0.8, AST 80 H D, ALT 172 H D, Alkaline Phosphatase 40, Total Protein 6.1 L, Albumin 3.1 L D, Globulin 3.0, Albumin/Globulin Ratio 1.0 L 10/04/21 09:35: WBC 11.6 H, RBC 4.74, Hgb 14.4, Hct 44.7, MCV 94.2 H, MCH 30.4, MCHC 32.3, RDW 13.8, Plt Count 206, MPV 10.1, Neut % (Auto) 77.8, Lymph % (Auto) 14.4, [place] % (Auto) 6.7, Eos % (Auto) 0.7, Baso % (Auto) 0.4, Neut # (Auto) 9.0 H, Lymph # (Auto) 1.7, [place] # (Auto) 0.8, Eos # (Auto) 0.1, Baso # (Auto) 0.1 I & O for Last 24 hours: Intake & Output 10/01/21 10/02/21 10/03/21 10/04/21 11:59 11:59 11:59 11:59 Intake Total 120 / 120 60 / 60 220 / 220 2579 / 2579 Output Total 925 / 925 100 / 100 700 / 700 1090 / 1090 Balance -805 / -805 -40 / -40 -480 / -480 1489 / 1489 Weight 232 lb 11.2 oz 228 lb 3.2 oz 206 lb 6.983 oz 206 lb 5.643 oz Microbiology Reports for the Last 24 Hours: Microbiology 10/03/21 14:20 Sputum - Expectorated Sputum Gram Stain - Final - Constitutional Comments: sedated on vent - *Routine HEENT Exam Head: Present: normocephalic Eye: Present: PERRL ENT: Present: other (intubated ) - *Routine Neck Exam Absent: JVD - *Routine Respiratory Exam Present: patient mechanically ventilated - *Routine Cardiovascular Exam Present: RRR - *Routine Abdominal Exam Present: soft - *Routine Extremities Exam Absent: calf tenderness - *Routine Skin Exam Present: intact - *Routine Neurological Exam Present: alert, CN II-XII intact - Routine Psychiatric Exam Present: unable to assess Assessment and Plan (1) Obesity (BMI 30-39.9) Status: Acute Category: Medical Code(s): E66.9 - Obesity, unspecified (2) Pneumonia due to COVID-19 virus Status: Acute Category: Medical Code(s): U07.1 - COVID-19; J12.82 - Pneumonia due to coronavirus disease 2019 (3) Respiratory failure with hypoxia Status: Acute Qualifiers: Chronicity: acute Qualified Code(s): J96.01 - Acute respiratory failure with hypoxia Category: Medical Code(s): J96.91 - Respiratory failure, unspecified with hypoxia
--- NOTE | 2021-10-04 15:30 | PC.NURSE ---
RT weaned FIO2 to 50% @ this time
[2021-10-05] VITALS (25 sets, daily range): BP systolic 88–147; BP diastolic 53–68; PULSE 50–98; RESP 18–26; TEMP 36.1–36.8; O2SAT 95–100; BMI 30.3
--- NOTE | 2021-10-05 06:00 | XR_ITS ---
PROCEDURE INFORMATION: Exam: XR Chest Exam date and time: 10/05/2021 6:00 AM Age: 61 years old Clinical indication: Device placement; Ett placement (vent status); Additional info: Follow up post intubation vent status TECHNIQUE: Imaging protocol: XR of the chest. Views: 1 view. COMPARISON: CR XR CHEST PORTABLE 10/04/2021 5:39 AM FINDINGS: Tubes, catheters and devices: Endotracheal tube terminates approximately 6 cm above the ludmila. NG tube passes into the stomach. Lungs: Slight interval worsening of patchy bilateral interstitial and airspace opacities. Pleural spaces: Small left pleural effusion. No pneumothorax. Heart/Mediastinum: Unremarkable. No cardiomegaly. Bones/joints: Unremarkable. IMPRESSION: 1. Endotracheal tube terminates approximately 6 cm above the ludmila. 2. Slight interval worsening of patchy bilateral interstitial and airspace opacities. 3. Small left pleural effusion.
[2021-10-05 07:36] LABS: Basophils # 0.1 K/mm3 (0-0.2); Basophils % 0.4 % (0.1-2.0); Eosinophils # 0.2 K/mm3 (0.0-0.4); Eosinophils % 1.4 % (0.1-12.0); Hematocrit 46.9 % (42.0-52.0); Hemoglobin 15.8 g/dL (14.1-18.0); Lymphocytes # 1.8 K/mm3 (0.7-4.5); Lymphocytes % 14.8 % (10-50); Mean Corpuscular HGB Conc 33.8 g/dL (31.8-35.4); Mean Corpuscular Hemoglobin 31.9 pg (27.0-31.2); Mean Corpuscular Volume 94.4 fl (80-94); Mean Platelet Volume 10.4 fl (7.4-10.4); Monocytes # 0.7 K/mm3 (0.1-1.0); Monocytes % 6.1 % (1.7-9.3); Neutrophils # 9.2 K/mm3 (1.8-7.8); Neutrophils % 77.3 % (37.0-80.0); Platelet Count 222 K/mm3 (142-424); Red Blood Count 4.96 M/mm3 (4.60-6.20); White Blood Count 11.9 K/mm3 (4.8-10.8)
[2021-10-05 07:45] LABS: Allen's Test acceptable; Oxygen 50 %; PEEP 8; Source Right Radial; Tidal Volume 440; Vent Rate 24
[2021-10-05 07:46] LABS: ABG Base Excess -5.1 mmol/L (-2.4-2.3); ABG HCO3 21.3 mmhg (22.0-26.0); ABG Oxygen Saturation 95 % (90-100); ABG PCO2 44.7 mmhg (35.0-45.0); ABG PO2 76.9 mmhg (80-100); ABG TCO2 22.7 mmhg (23-27)
[2021-10-05 07:49] LABS: Lactate Arterial 0.9 mmol/L (0.4-2.0)
[2021-10-05 07:50] LABS: Chloride 111 mmol/L (98-107); Sodium 137 mmol/L (136-145)
[2021-10-05 07:51] LABS: Potassium 5.7 mmoL/L (3.5-5.1)
--- NOTE | 2021-10-05 07:52 | PC.NURSE ---
Dr. Moreno notified of the following ABG results: 7.296, 44.7, 76.9, 21.3, -9.51, 94.7%, lactic 0.94. No new orders received.
[2021-10-05 07:53] LABS: Alanine Aminotransferase 125 U/L (12-78); Anion Gap 8.7 mEq/L (5-15); Aspartate Amino Transferase 55 U/L (17-59); Blood Urea Nitrogen 21 mg/dl (9-20); Carbon Dioxide 23 mmol/L (22.0-30.0); Creatinine Clearance Estimated 105 mL/min (50-200); Estimated Glomerular Filt Rate 114 ml/min (>60); GFR (African American) 138 ML/MIN (>60)
[2021-10-05 07:54] LABS: Albumin Level 2.8 g/dl (3.5-5.0); Alkaline Phosphatase 46 U/L (38-126); Bilirubin,Total 0.4 mg/dl (0.2-1.3); Calcium 7.6 mg/dl (8.4-10.2); Globulin 2.8 g/dL (1.3-3.2); Glucose 87 mg/dl (74-100); Total Protein,Serum 5.6 g/dl (6.3-8.2)
--- NOTE | 2021-10-05 09:44 | HMH.ACPN2 ---
Internal Medicine - PN: Subj *Date: 10/05/21 *Time: 09:00 Interval history: pt laying in bed, intubated,bauer at bedside, tube feeding,vss Exam Vital signs and Labs for Last 24 Hours: Temp Pulse Resp BP Pulse Ox 97.1 F L 59 L 25 H 105/59 L 96 10/05/21 08:00 10/05/21 09:00 10/05/21 09:00 10/05/21 09:00 10/05/21 09:00 Laboratory Results - last 24 hr 10/04/21 09:35: Sodium 138, Potassium 5.9 H D, Chloride 108 H, Carbon Dioxide 28, Anion Gap 8.1, BUN 24 H, Creatinine 0.80, Estimated Creat Clear 100, Estimated GFR 98, Est GFR ( Amer) 118, Glucose 81, Calcium 7.6 L, Total Bilirubin 0.8, AST 80 H D, ALT 172 H D, Alkaline Phosphatase 40, Total Protein 6.1 L, Albumin 3.1 L D, Globulin 3.0, Albumin/Globulin Ratio 1.0 L 10/04/21 09:35: WBC 11.6 H, RBC 4.74, Hgb 14.4, Hct 44.7, MCV 94.2 H, MCH 30.4, MCHC 32.3, RDW 13.8, Plt Count 206, MPV 10.1, Neut % (Auto) 77.8, Lymph % (Auto) 14.4, [place] % (Auto) 6.7, Eos % (Auto) 0.7, Baso % (Auto) 0.4, Neut # (Auto) 9.0 H, Lymph # (Auto) 1.7, [place] # (Auto) 0.8, Eos # (Auto) 0.1, Baso # (Auto) 0.1 10/05/21 06:00: Specimen Source Right radial, O2 % 50, ABG pH 7.30 L, ABG pCO2 44.7, ABG pO2 76.9 L, ABG HCO3 21.3 L, ABG Total CO2 22.7 L, ABG O2 Saturation 95, ABG Base Excess -5.1 L, Mauricio Test acceptable, Vent Rate 24, Tidal Volume 440, PEEP 8 10/05/21 06:36: Sodium 137, Potassium 5.7 H, Chloride 111 H, Carbon Dioxide 23, Anion Gap 8.7, BUN 21 H, Creatinine 0.70, Estimated Creat Clear 105, Estimated GFR 114, Est GFR ( Amer) 138, Glucose 87, Calcium 7.6 L, Total Bilirubin 0.4, AST 55 D, ALT 125 H D, Alkaline Phosphatase 46, Total Protein 5.6 L, Albumin 2.8 L, Globulin 2.8, Albumin/Globulin Ratio 1.0 L 10/05/21 06:36: WBC 11.9 H, RBC 4.96, Hgb 15.8, Hct 46.9, MCV 94.4 H, MCH 31.9 H, MCHC 33.8, RDW 14.0, Plt Count 222, MPV 10.4, Neut % (Auto) 77.3, Lymph % (Auto) 14.8, [place] % (Auto) 6.1, Eos % (Auto) 1.4, Baso % (Auto) 0.4, Neut # (Auto) 9.2 H, Lymph # (Auto) 1.8, [place] # (Auto) 0.7, Eos # (Auto) 0.2, Baso # (Auto) 0.1 10/05/21 07:19: ABG Lactate 0.9 I & O for Last 24 hours: Intake & Output 10/02/21 10/03/21 10/04/21 10/05/21 11:59 11:59 11:59 11:59 Intake Total 60 / 60 220 / 220 2835 / 3040 2730.708 / 2730.708 Output Total 100 / 100 700 / 700 1230 / 1350 2070 / 2070 Balance -40 / -40 -480 / -480 1605 / 1690 660.708 / 660.708 Weight 228 lb 3.2 oz 206 lb 6.983 oz 206 lb 5.643 oz 216 lb 9.011 oz - Constitutional no acute distress - *Routine HEENT Exam Head: Present: normocephalic Eye: Present: PERRL ENT: Present: mucous membranes moist - *Routine Neck Exam Present: supple. Absent: lymphadenopathy - *Routine Respiratory Exam Present: patient mechanically ventilated - *Routine Cardiovascular Exam Present: RRR - *Routine Abdominal Exam Present: soft, normoactive bowel sounds. Absent: tenderness - *Routine Extremities Exam Absent: cyanosis, clubbing, edema - *Routine Skin Exam Present: warm. Absent: rash - *Routine Neurological Exam sedated Assessment and Plan (1) Obesity (BMI 30-39.9) Status: Acute Category: Medical Code(s): E66.9 - Obesity, unspecified (2) Pneumonia due to COVID-19 virus Status: Acute Category: Medical Code(s): U07.1 - COVID-19; J12.82 - Pneumonia due to coronavirus disease 2019 (3) Respiratory failure with hypoxia Status: Acute Qualifiers: Chronicity: acute Qualified Code(s): J96.01 - Acute respiratory failure with hypoxia Category: Medical Code(s): J96.91 - Respiratory failure, unspecified with hypoxia (4) Renal insufficiency Status: Acute Category: Medical Code(s): N28.9 - Disorder of kidney and ureter, unspecified (5) Elevated liver enzymes Status: Acute Category: Medical Code(s): R74.8 - Abnormal levels of other serum enzymes - Assessment and plan all Dx Assessment and Plan for all problems:: rounded with dr bucio all orders per dr bucio continue all care
--- NOTE | 2021-10-05 11:09 | DIET.NUTRFU ---
Spoke to nursing today, patient is tolerating new TF. Current rate is 30ml with goal rate of 60ml/day. Will continue to monitor tolerance. Labs 10/05 reviewed: elevated K 5.7, elevated BUN 21H.
--- NOTE | 2021-10-05 11:30 | HMH.PTWOUND ---
Rehab Inpt Wound Evaluation Rehab IP Wound Evaluation Start: 10/03/21 17:31 Freq: ONCE Status: Active Protocol: Document 10/05/21 11:26 AMY (Rec: 10/05/21 11:30 [email or web address] [id number]) Rehab PT Wound Assessment Patient Status Premedicated Prior to Dressing Change No Subjective Subjective Pt sedated and artificially ventilated - low mihaela score triggered wound eval - pt has DTI to coccygeal sacral area Wound Sacrum Wound Type Bruise/DTI Wound Length (cm) 7 Wound Width (cm) 9 Wound Margins Description Indistinct Surrounding Tissue Appearance [place] Wound Drainage Description None Drainage Amount None Drainage Odor No Odor Dressing Status Open to Air Dressing Change Patient Tolerance Tolerated Poorly Plan/Recommendation Comment No open wound at this time - pt to need pressure relief, sheer protection, and moisture /bodily waste protection. Nsg instructed to pressure relief as per protocol and use optifoam sacral to pad and prevent skin irritation from bodily fluids. Wound care team will be available for continued consult if needed. Nsg to continue w/ pressure relief and dressing chnages PRN Eval Complexity Eval Charge Codes 37390 - Moderate Complexity G-codes PT Current Status Other PT/OT Status PT Current Status Modifier CN-At least 100% impaired, limited or restricted PT Goal Status Other PT/OT Status PT Goal Status Modifer CN-At least 100% impaired, limited or restricted PHYSICIAN CERTIFICATION: I certify the specified therapy services for Donte eHrnandez are required, authorized, and reviewed every 30 days.
--- NOTE | 2021-10-05 13:08 | HMH.PULMPN ---
Internal Medicine - PN: Subj *Date: 10/05/21 *Time: 13:08 Interval history: Patient intubated over the weekend, oxygen requirements improving Exam - Constitutional Constitutional:: Present: no acute distress, comfortable - HENMT Exam HENMT: Present: normocephalic, atraumatic - Eye Exam Eyes:: Present: normal appearance both eyes and related structures - Neck Exam Neck:: Present: normal visual inspection - Respiratory Exam Respiratory:: Present: no respiratory distress, rales. Absent: wheezing - Cardiovascular Exam Cardiac:: Present: S1, S2 - GI Exam GI:: Present: soft - Skin Exam Skin: Present: warm, no rash - Neurological Exam Neurological: Absent: alert, awake, normal cognition - Extremities Exam Extremities: Present: no cyanosis, no clubbing, no edema Assessment and Plan (1) Obesity (BMI 30-39.9) Status: Acute Category: Medical Code(s): E66.9 - Obesity, unspecified (2) Pneumonia due to COVID-19 virus Status: Acute Category: Medical Code(s): U07.1 - COVID-19; J12.82 - Pneumonia due to coronavirus disease 2019 (3) Respiratory failure with hypoxia Status: Acute Qualifiers: Chronicity: acute Qualified Code(s): J96.01 - Acute respiratory failure with hypoxia Category: Medical Code(s): J96.91 - Respiratory failure, unspecified with hypoxia (4) Renal insufficiency Status: Acute Category: Medical Code(s): N28.9 - Disorder of kidney and ureter, unspecified (5) Elevated liver enzymes Status: Acute Category: Medical Code(s): R74.8 - Abnormal levels of other serum enzymes - Assessment and plan all Dx Assessment and Plan for all problems:: #Acute hypoxic respiratory failure: #COVID-19 pneumonia: Current smoker greater than [id number]-[id number] smoking history. Yet to be vaccinated. COVID-19 PCR positive. Flu a and B-. CTA did not show any evidence of pulmonary emboli however showed bilateral diffuse lower lobe predominant groundglass opacities concerning for COVID-19 pneumonia. Venous Doppler negative for DVT Significantly elevated inflammatory markers. Patient was initiated on remdesivir dexamethasone and baricitinib on admission along with ceftriaxone and azithromycin. Patient has been noncompliant with his oxygen, frequently removing his high flow nasal cannula and also not compliant with his proning protocol. His respiratory status worsen along with his agitation prompted desaturations eventually needing intubation and mechanical ventilatory support over the weekend. Patient respiratory status gradually improved since then, he was weaned to 50% FiO2 and 8 of PEEP with saturation maintained at 96% and above. ABG reviewed, mild metabolic acidosis noted.. Plan: -Intubated and sedated, continue propofol and fentanyl. Will wean sedation as tolerated to facilitate SBT. Continue current ventilator settings, 8 of PEEP, 45% FiO2, 440 of tidal volume and a rate of 26. Continue to wean as tolerated with SBT. He continues to receive ceftriaxone azithromycin. Awaiting tracheal aspirate. Nasal MRSA PCR negative. Continue DuoNebs every 6 hours along with budesonide every 12 hrs. Completed 5-day course of remdesivir. We'll continue dexamethasone and baricitinib. Hemodynamically stable. Abdomen soft nontender. Closely monitor LFTs. Continue tube feeds Renal function stable. Adequate urine output. Lasix 40 mg IV once. Hyperkalemia noted at 5.7. We'll closely monitor. Continue bicarb 650 twice daily - Continue mechanical ventilatory support - Continue AnalgoSedation with Propofol and Fentanyl with CPOT gal less than or euqal to 2 and RASS goal of 1 to 2 - VAP bundle Elevate head of the bed at 30 to 45 degrees Oral care with chlorhexidne GI ulcer prophylaxis - Famotidine 20mg IV BID Chemical DVT prophylaxis # Patient also noted to have mediastinal and hilar lymphadenopathy which can well be reactive. No recent prior x-rays or CT imaging available for fu
[2021-10-06] VITALS (24 sets, daily range): BP systolic 94–174; BP diastolic 56–90; PULSE 55–105; RESP 16–21; TEMP 36.2–37.4; O2SAT 95–100; BMI 30.3
--- NOTE | 2021-10-06 06:00 | XR_ITS ---
PROCEDURE INFORMATION: Exam: XR Chest Exam date and time: 10/06/2021 6:00 AM Age: 61 years old Clinical indication: Device placement; Ett placement (vent status); Additional info: Follow up post intubation TECHNIQUE: Imaging protocol: XR of the chest. Views: 1 view. COMPARISON: CR XR CHEST PORTABLE 10/05/2021 5:50 AM FINDINGS: Tubes, catheters and devices: There is an endotracheal tube in place with distal tip at the aortic arch. There is an enteric tube in place with distal tip in the stomach. Lungs: There is been slight improved aeration of bibasilar and right mid lung field pulmonary infiltrates. Pleural spaces: No pleural effusion. An overlying respiratory device limits evaluation of the right pleural space. Heart/Mediastinum: No cardiomegaly. Bones/joints: There are degenerative changes of the spine and shoulders. IMPRESSION: There is been slight improved aeration of bibasilar and right mid lung field pulmonary infiltrates.
[2021-10-06 07:14] LABS: Basophils # 0.1 K/mm3 (0-0.2); Basophils % 0.8 % (0.1-2.0); Eosinophils # 0.1 K/mm3 (0.0-0.4); Hematocrit 46.2 % (42.0-52.0); Hemoglobin 15.8 g/dL (14.1-18.0); Lymphocytes # 1.7 K/mm3 (0.7-4.5); Lymphocytes % 13.9 % (10-50); Mean Corpuscular HGB Conc 34.1 g/dL (31.8-35.4); Mean Corpuscular Hemoglobin 31.6 pg (27.0-31.2); Mean Corpuscular Volume 92.5 fl (80-94); Monocytes # 1.1 K/mm3 (0.1-1.0); Monocytes % 9.2 % (1.7-9.3); Neutrophils % 75.1 % (37.0-80.0); Platelet Count 219 K/mm3 (142-424); Red Blood Count 4.99 M/mm3 (4.60-6.20); Red Cell Distribution Width 13.9 % (11.5-17.5); White Blood Count 11.9 K/mm3 (4.8-10.8)
[2021-10-06 07:22] LABS: Chloride 110 mmol/L (98-107); Potassium 5.8 mmoL/L (3.5-5.1); Sodium 138 mmol/L (136-145)
[2021-10-06 07:25] LABS: Alanine Aminotransferase 101 U/L (12-78); Albumin Level 2.9 g/dl (3.5-5.0); Alkaline Phosphatase 45 U/L (38-126); Anion Gap 8.8 mEq/L (5-15); Aspartate Amino Transferase 52 U/L (17-59); Bilirubin,Total 0.6 mg/dl (0.2-1.3); Blood Urea Nitrogen 19 mg/dl (9-20); Calcium 7.6 mg/dl (8.4-10.2); Carbon Dioxide 25 mmol/L (22.0-30.0); Creatinine Clearance Estimated 105 mL/min (50-200); Estimated Glomerular Filt Rate 136 ml/min (>60); GFR (African American) 165 ML/MIN (>60); Globulin 2.9 g/dL (1.3-3.2); Glucose 88 mg/dl (74-100); Total Protein,Serum 5.8 g/dl (6.3-8.2)
[2021-10-06 07:46] LABS: Lactate Arterial 1.2 mmol/L (0.4-2.0)
[2021-10-06 07:55] LABS: Oxygen 40 %; PEEP 8; Tidal Volume 440; Vent Rate 24
[2021-10-06 07:56] LABS: ABG HCO3 25.2 mmhg (22.0-26.0); ABG Oxygen Saturation 94 % (90-100); ABG PCO2 42.6 mmhg (35.0-45.0); ABG PH 7.39 mmol/L (7.35-7.45); ABG PO2 70.9 mmhg (80-100); ABG TCO2 26.5 mmhg (23-27); Allen's Test acceptable; Source Right Radial
--- NOTE | 2021-10-06 09:58 | HMH.ACPN2 ---
Internal Medicine - PN: Subj *Date: 10/06/21 *Time: 22:25 Interval history: 61 YOM lyingin bed intubated/sedated and TF infusing. Nursing reports no events over night. Exam Vital signs and Labs for Last 24 Hours: Temp Pulse Resp BP Pulse Ox 97.4 F L 67 18 111/65 97 10/06/21 04:00 10/06/21 08:00 10/06/21 08:00 10/06/21 08:00 10/06/21 08:00 Laboratory Results - last 24 hr 10/06/21 06:00: Specimen Source Right radial, O2 % 40, ABG pH 7.39, ABG pCO2 42.6, ABG pO2 70.9 L, ABG HCO3 25.2, ABG Total CO2 26.5, ABG O2 Saturation 94, ABG Base Excess 0.0, Mauricio Test acceptable, Vent Rate 24, Tidal Volume 440, PEEP 8 10/06/21 06:39: Sodium 138, Potassium 5.8 H, Chloride 110 H, Carbon Dioxide 25, Anion Gap 8.8, BUN 19, Creatinine 0.60 L, Estimated Creat Clear 105, Estimated GFR 136, Est GFR ( Amer) 165, Glucose 88, Calcium 7.6 L, Total Bilirubin 0.6, AST 52, ALT 101 H, Alkaline Phosphatase 45, Total Protein 5.8 L, Albumin 2.9 L, Globulin 2.9, Albumin/Globulin Ratio 1.0 L 10/06/21 06:39: WBC 11.9 H, RBC 4.99, Hgb 15.8, Hct 46.2, MCV 92.5, MCH 31.6 H, MCHC 34.1, RDW 13.9, Plt Count 219, MPV 10.0, Neut % (Auto) 75.1, Lymph % (Auto) 13.9, [place] % (Auto) 9.2, Eos % (Auto) 1.0, Baso % (Auto) 0.8, Neut # (Auto) 9.0 H, Lymph # (Auto) 1.7, [place] # (Auto) 1.1 H, Eos # (Auto) 0.1, Baso # (Auto) 0.1 10/06/21 07:42: ABG Lactate 1.2 I & O for Last 24 hours: Intake & Output 1210/04/21 10/05/21 10/06/21 23:59 23:59 23:59 23:59 Intake Total 765 / 765 2818 / 2818 5294.333 / 5294.333 1361.25 / 1361.25 Output Total 845 / 935 1555 / 1780 4530 / 4530 410 / 410 Balance -80 / -170 1263 / 1038 764.333 / 764.333 951.25 / 951.25 Weight 206 lb 5.643 oz 206 lb 5.643 oz 216 lb 9.011 oz 216 lb 8.996 oz Microbiology Reports for the Last 24 Hours: Microbiology 10/03/21 14:20 Sputum - Expectorated Sputum Gram Stain - Final 10/03/21 14:20 Sputum - Expectorated Sputum Sputum Culture - Preliminary Yeast - Constitutional no acute distress - *Routine HEENT Exam Head: Present: normocephalic Eye: Present: EOMI ENT: Present: mucous membranes moist - *Routine Neck Exam Present: trachea midline. Absent: tracheal deviation - *Routine Respiratory Exam Present: patient mechanically ventilated, rhonchi - *Routine Cardiovascular Exam Present: RRR - *Routine Abdominal Exam Present: soft, normoactive bowel sounds, firm. Absent: distended - *Routine Extremities Exam Present: pulses intact. Absent: cyanosis - *Routine Skin Exam Present: intact, dry. Absent: cyanosis, erythema - *Routine Neurological Exam Present: altered mental status Intubated/Sedated - Routine Psychiatric Exam Present: unable to assess Comments: Intubated/Sedated Assessment and Plan (1) Obesity (BMI 30-39.9) Status: Acute Category: Medical Code(s): E66.9 - Obesity, unspecified (2) Pneumonia due to COVID-19 virus Status: Acute Category: Medical Code(s): U07.1 - COVID-19; J12.82 - Pneumonia due to coronavirus disease 2019 (3) Respiratory failure with hypoxia Status: Acute Qualifiers: Chronicity: acute Qualified Code(s): J96.01 - Acute respiratory failure with hypoxia Category: Medical Code(s): J96.91 - Respiratory failure, unspecified with hypoxia (4) Renal insufficiency Status: Acute Category: Medical Code(s): N28.9 - Disorder of kidney and ureter, unspecified (5) Elevated liver enzymes Status: Acute Category: Medical Code(s): R74.8 - Abnormal levels of other serum enzymes - Assessment and plan all Dx Assessment and Plan for all problems:: Rounded with Dr. Bowling, allordes per Dr. Bowling: 1. Pulm following 2. Wean O2 and sedation as tolerated
--- NOTE | 2021-10-06 09:59 | HMH.ACPN2 ---
Internal Medicine - PN: Subj *Date: 10/06/21 *Time: 09:59 Exam Vital signs and Labs for Last 24 Hours: Temp Pulse Resp BP Pulse Ox 97.4 F L 67 18 111/65 97 10/06/21 04:00 10/06/21 08:00 10/06/21 08:00 10/06/21 08:00 10/06/21 08:00 Laboratory Results - last 24 hr 10/06/21 06:00: Specimen Source Right radial, O2 % 40, ABG pH 7.39, ABG pCO2 42.6, ABG pO2 70.9 L, ABG HCO3 25.2, ABG Total CO2 26.5, ABG O2 Saturation 94, ABG Base Excess 0.0, Mauricio Test acceptable, Vent Rate 24, Tidal Volume 440, PEEP 8 10/06/21 06:39: Sodium 138, Potassium 5.8 H, Chloride 110 H, Carbon Dioxide 25, Anion Gap 8.8, BUN 19, Creatinine 0.60 L, Estimated Creat Clear 105, Estimated GFR 136, Est GFR ( Amer) 165, Glucose 88, Calcium 7.6 L, Total Bilirubin 0.6, AST 52, ALT 101 H, Alkaline Phosphatase 45, Total Protein 5.8 L, Albumin 2.9 L, Globulin 2.9, Albumin/Globulin Ratio 1.0 L 10/06/21 06:39: WBC 11.9 H, RBC 4.99, Hgb 15.8, Hct 46.2, MCV 92.5, MCH 31.6 H, MCHC 34.1, RDW 13.9, Plt Count 219, MPV 10.0, Neut % (Auto) 75.1, Lymph % (Auto) 13.9, [place] % (Auto) 9.2, Eos % (Auto) 1.0, Baso % (Auto) 0.8, Neut # (Auto) 9.0 H, Lymph # (Auto) 1.7, [place] # (Auto) 1.1 H, Eos # (Auto) 0.1, Baso # (Auto) 0.1 10/06/21 07:42: ABG Lactate 1.2 I & O for Last 24 hours: Intake & Output 10/03/21 10/04/21 10/05/21 10/06/21 23:59 23:59 23:59 23:59 Intake Total 765 / 765 2818 / 2818 5294.333 / 5294.333 1361.25 / 1361.25 Output Total 845 / 935 1555 / 1780 4530 / 4530 410 / 410 Balance -80 / -170 1263 / 1038 764.333 / 764.333 951.25 / 951.25 Weight 206 lb 5.643 oz 206 lb 5.643 oz 216 lb 9.011 oz 216 lb 8.996 oz Microbiology Reports for the Last 24 Hours: Microbiology 10/03/21 14:20 Sputum - Expectorated Sputum Gram Stain - Final 10/03/21 14:20 Sputum - Expectorated Sputum Sputum Culture - Preliminary Yeast Assessment and Plan (1) Obesity (BMI 30-39.9) Status: Acute Category: Medical Code(s): E66.9 - Obesity, unspecified (2) Pneumonia due to COVID-19 virus Status: Acute Category: Medical Code(s): U07.1 - COVID-19; J12.82 - Pneumonia due to coronavirus disease 2019 (3) Respiratory failure with hypoxia Status: Acute Qualifiers: Chronicity: acute Qualified Code(s): J96.01 - Acute respiratory failure with hypoxia Category: Medical Code(s): J96.91 - Respiratory failure, unspecified with hypoxia (4) Renal insufficiency Status: Acute Category: Medical Code(s): N28.9 - Disorder of kidney and ureter, unspecified (5) Elevated liver enzymes Status: Acute Category: Medical Code(s): R74.8 - Abnormal levels of other serum enzymes
--- NOTE | 2021-10-06 12:27 | HMH.PULMPN ---
Internal Medicine - PN: Subj *Date: 10/06/21 *Time: 12:27 Interval history: No acute respiratory vents overnight. Patient currently remains on stable ventilator settings. Exam - Constitutional Constitutional:: Present: no acute distress, comfortable - HENMT Exam HENMT: Present: normocephalic, atraumatic - Eye Exam Eyes:: Present: normal appearance both eyes and related structures - Neck Exam Neck:: Present: normal visual inspection - Respiratory Exam Respiratory:: Present: no respiratory distress, rhonchi. Absent: wheezing - Cardiovascular Exam Cardiac:: Present: S1, S2 - GI Exam GI:: Present: soft, no hepatosplenomegaly - Skin Exam Skin: Present: warm, no rash - Neurological Exam Neurological: Absent: alert, awake, normal cognition - Extremities Exam Extremities: Present: no cyanosis, no clubbing, no edema Assessment and Plan (1) Obesity (BMI 30-39.9) Status: Acute Category: Medical Code(s): E66.9 - Obesity, unspecified (2) Pneumonia due to COVID-19 virus Status: Acute Category: Medical Code(s): U07.1 - COVID-19; J12.82 - Pneumonia due to coronavirus disease 2019 (3) Respiratory failure with hypoxia Status: Acute Qualifiers: Chronicity: acute Qualified Code(s): J96.01 - Acute respiratory failure with hypoxia Category: Medical Code(s): J96.91 - Respiratory failure, unspecified with hypoxia (4) Renal insufficiency Status: Acute Category: Medical Code(s): N28.9 - Disorder of kidney and ureter, unspecified (5) Elevated liver enzymes Status: Acute Category: Medical Code(s): R74.8 - Abnormal levels of other serum enzymes - Assessment and plan all Dx Assessment and Plan for all problems:: #Acute hypoxic respiratory failure: #COVID-19 pneumonia: Current smoker greater than [id number] smoking history. Yet to be vaccinated. COVID-19 PCR positive. Flu a and B-. CTA did not show any evidence of pulmonary emboli however showed bilateral diffuse lower lobe predominant groundglass opacities concerning for COVID-19 pneumonia. Venous Doppler negative for DVT Significantly elevated inflammatory markers. Patient was initiated on remdesivir dexamethasone and baricitinib on admission along with ceftriaxone and azithromycin. Patient has been noncompliant with his oxygen, frequently removing his high flow nasal cannula and also not compliant with his proning protocol. His respiratory status worsen along with his agitation prompted desaturations eventually needing intubation and mechanical ventilatory support over the weekend. Patient respiratory status gradually improved since then Plan: -Intubated and sedated, continue to wean sedation to perform SBT and extubation if successful. Continue current ventilator settings, 5 of PEEP, 45% FiO2, 440 of tidal volume and a rate of 26. Continue to wean as tolerated with SBT. He continues to receive ceftriaxone azithromycin. Tracheal aspirate growing yeast. Will monitor. Nasal MRSA PCR negative. ABG and chest x-ray from today reviewed, chest x-ray relatively unchanged from prior. Acidosis improving in his ABG. Continue DuoNebs every 6 hours along with budesonide every 12 hrs. Completed 5-day course of remdesivir. We'll continue dexamethasone and baricitinib. Hemodynamically stable. Abdomen soft nontender. Closely monitor LFTs. Continue tube feeds Renal function stable. Adequate urine output. Lasix 40 mg IV once. Hyperkalemia noted at 5.7. We'll closely monitor. Continue bicarb 650 twice daily - Continue mechanical ventilatory support - Continue AnalgoSedation with Propofol and Fentanyl with CPOT gal less than or euqal to 2 and RASS goal of 1 to 2 - VAP bundle Elevate head of the bed at 30 to 45 degrees Oral care with chlorhexidne GI ulcer prophylaxis - Famotidine 20mg IV BID Chemical DVT prophylaxis # Patient also noted to have mediastinal and hilar lymphadenopathy which can well be reactive. No rece
--- NOTE | 2021-10-06 13:25 | PC.NURSE ---
1320- Extubated to 50% venti at this time, patient tolerated well, current o2 saturations 98%
--- NOTE | 2021-10-06 13:31 | PC.NURSE ---
RESP CARE NOTE: FIO2 decreased to 90% FIO2 per Dr Moreno t/o.
--- NOTE | 2021-10-06 13:33 | PC.NURSE ---
RESP CARE NOTE: Pt extubated to a 50% FIO2 per Dr Moreno t/o. Wean oxygen as tolerated to keep SPO2 above 90%.
--- NOTE | 2021-10-06 15:16 | PC.NURSE ---
Report given to Micaela Lewis RN who assumes care of patient at this time
--- NOTE | 2021-10-06 17:23 | INFXCTL.NOTE ---
Pt has been oriented to self only since being extubated. Heels remain floated w/ heel protectors on. Pt has been turned q2h. Thick, white coating noted to tongue-q2h oral care performed. No other acute changes or complaints.
[2021-10-07] VITALS (12 sets, daily range): BP systolic 142–155; BP diastolic 65–83; PULSE 65–93; RESP 16–21; TEMP 36.4–36.9; O2SAT 92–95; BMI 30.1
--- NOTE | 2021-10-07 00:26 | PC.NURSE ---
Gave report to DELL Hunter at this time.
--- NOTE | 2021-10-07 06:00 | XR_ITS ---
PROCEDURE INFORMATION: Exam: XR Chest Exam date and time: 10/07/2021 6:00 AM Age: 61 years old Clinical indication: Screening exam; Other screening; Patient HX: Covid+; Additional info: Follow up post intubation TECHNIQUE: Imaging protocol: XR of the chest. Views: 1 view. COMPARISON: CR XR CHEST PORTABLE 10/06/2021 5:00 AM FINDINGS: Lungs: Diffuse consolidations throughout the bilateral lung hernandez, unchanged compared to the previous exam. Pleural spaces: Unremarkable. No pleural effusion. No pneumothorax. Heart/Mediastinum: Unremarkable. No cardiomegaly. Bones/joints: Unremarkable. There is no acute fracture present. IMPRESSION: 1. Diffuse consolidations throughout the bilateral lung hernandez, unchanged compared to the previous exam. 2. Interval removal of the endotracheal tube and nasogastric tube.
--- NOTE | 2021-10-07 09:25 | HMH.ACPN2 ---
Internal Medicine - PN: Subj *Date: 10/07/21 *Time: 09:00 Interval history: pt laying in bed states he feels well. Exam Vital signs and Labs for Last 24 Hours: Temp Pulse Resp BP Pulse Ox 98.0 F 83 17 149/77 H 94 L 10/07/21 08:00 10/07/21 08:00 10/07/21 08:00 10/07/21 08:00 10/07/21 08:00 I & O for Last 24 hours: Intake & Output 10/04/21 10/05/21 10/06/21 10/07/21 11:59 11:59 11:59 11:59 Intake Total 2835 / 3040 2850.708 / 2850.708 4759.875 / 4954.875 395 / 395 Output Total 1230 / 1350 2200 / 2400 3810 / 4000 6385 / 6385 Balance 1605 / 1690 650.708 / 450.708 949.875 / 954.875 -5990 / -5990 Weight 206 lb 5.643 oz 216 lb 9.011 oz 216 lb 8.996 oz 215 lb 6.4 oz Microbiology Reports for the Last 24 Hours: Microbiology 10/03/21 14:20 Sputum - Expectorated Sputum Gram Stain - Final 10/03/21 14:20 Sputum - Expectorated Sputum Sputum Culture - Preliminary Yeast Gram Positive Cocci - Constitutional no acute distress - *Routine HEENT Exam Head: Present: normocephalic Eye: Present: PERRL ENT: Present: mucous membranes moist - *Routine Neck Exam Present: supple. Absent: lymphadenopathy - *Routine Respiratory Exam Present: CTA bilaterally - *Routine Cardiovascular Exam Present: RRR - *Routine Abdominal Exam Present: soft, normoactive bowel sounds. Absent: tenderness - *Routine Extremities Exam Absent: cyanosis, clubbing, edema - *Routine Skin Exam Present: warm. Absent: rash - *Routine Neurological Exam Present: alert, oriented X3 Assessment and Plan (1) Obesity (BMI 30-39.9) Status: Acute Category: Medical Code(s): E66.9 - Obesity, unspecified (2) Pneumonia due to COVID-19 virus Status: Acute Category: Medical Code(s): U07.1 - COVID-19; J12.82 - Pneumonia due to coronavirus disease 2019 (3) Respiratory failure with hypoxia Status: Acute Qualifiers: Chronicity: acute Qualified Code(s): J96.01 - Acute respiratory failure with hypoxia Category: Medical Code(s): J96.91 - Respiratory failure, unspecified with hypoxia (4) Renal insufficiency Status: Acute Category: Medical Code(s): N28.9 - Disorder of kidney and ureter, unspecified (5) Elevated liver enzymes Status: Acute Category: Medical Code(s): R74.8 - Abnormal levels of other serum enzymes - Assessment and plan all Dx Assessment and Plan for all problems:: rounded with dr bucio all orders per dr bucio speech eval pulm consult
[2021-10-07 10:09] LABS: Basophils # 0.1 K/mm3 (0-0.2); Basophils % 0.5 % (0.1-2.0); Eosinophils # 0.1 K/mm3 (0.0-0.4); Eosinophils % 0.7 % (0.1-12.0); Hematocrit 46.6 % (42.0-52.0); Hemoglobin 16.3 g/dL (14.1-18.0); Lymphocytes # 1.1 K/mm3 (0.7-4.5); Lymphocytes % 9.2 % (10-50); Mean Corpuscular HGB Conc 34.9 g/dL (31.8-35.4); Mean Corpuscular Hemoglobin 31.5 pg (27.0-31.2); Mean Corpuscular Volume 90.2 fl (80-94); Mean Platelet Volume 9.5 fl (7.4-10.4); Monocytes # 0.9 K/mm3 (0.1-1.0); Monocytes % 7.5 % (1.7-9.3); Neutrophils # 9.6 K/mm3 (1.8-7.8); Neutrophils % 82.1 % (37.0-80.0); Platelet Count 259 K/mm3 (142-424); Red Blood Count 5.17 M/mm3 (4.60-6.20); Red Cell Distribution Width 14.2 % (11.5-17.5); White Blood Count 11.7 K/mm3 (4.8-10.8)
[2021-10-07 10:28] LABS: Chloride 105 mmol/L (98-107); Sodium 140 mmol/L (136-145)
[2021-10-07 10:30] LABS: Alanine Aminotransferase 105 U/L (12-78); Alkaline Phosphatase 72 U/L (38-126); Aspartate Amino Transferase 61 U/L (17-59); Bilirubin,Total 0.9 mg/dl (0.2-1.3); Blood Urea Nitrogen 23 mg/dl (9-20); Creatinine Clearance Estimated 104 mL/min (50-200); Estimated Glomerular Filt Rate 114 ml/min (>60); GFR (African American) 138 ML/MIN (>60)
[2021-10-07 10:31] LABS: Albumin Level 3.4 g/dl (3.5-5.0); Albumin/Globulin Ratio 1.2 (1.1-1.8); Calcium 7.9 mg/dl (8.4-10.2); Carbon Dioxide 30 mmol/L (22.0-30.0); Globulin 2.9 g/dL (1.3-3.2); Glucose 100 mg/dl (74-100); Total Protein,Serum 6.3 g/dl (6.3-8.2)
--- NOTE | 2021-10-07 11:07 | HMH.PULMPN ---
Internal Medicine - PN: Subj *Date: 10/07/21 *Time: 11:07 Interval history: No acute respirations overnight. Patient successfully extubated and remained on nasal cannula. Exam - Constitutional Constitutional:: Present: no acute distress, comfortable - HENMT Exam HENMT: Present: normocephalic - Eye Exam Eyes:: Present: normal appearance both eyes and related structures - Neck Exam Neck:: Present: normal visual inspection - Respiratory Exam Respiratory:: Present: respiratory distress, crackles, rales. Absent: wheezing - Cardiovascular Exam Cardiac:: Present: S1, S2 - GI Exam GI:: Present: soft - Skin Exam Skin: Present: warm, no rash - Neurological Exam Neurological: Present: alert, awake, normal cognition - Extremities Exam Extremities: Present: no cyanosis, no clubbing, no edema Assessment and Plan (1) Obesity (BMI 30-39.9) Status: Acute Category: Medical Code(s): E66.9 - Obesity, unspecified (2) Pneumonia due to COVID-19 virus Status: Acute Category: Medical Code(s): U07.1 - COVID-19; J12.82 - Pneumonia due to coronavirus disease 2019 (3) Respiratory failure with hypoxia Status: Acute Qualifiers: Chronicity: acute Qualified Code(s): J96.01 - Acute respiratory failure with hypoxia Category: Medical Code(s): J96.91 - Respiratory failure, unspecified with hypoxia (4) Renal insufficiency Status: Acute Category: Medical Code(s): N28.9 - Disorder of kidney and ureter, unspecified (5) Elevated liver enzymes Status: Acute Category: Medical Code(s): R74.8 - Abnormal levels of other serum enzymes - Assessment and plan all Dx Assessment and Plan for all problems:: #Acute hypoxic respiratory failure: #COVID-19 pneumonia: Current smoker greater than [id number] smoking history. Yet to be vaccinated. COVID-19 PCR positive. Flu a and B negative CTA did not show any evidence of pulmonary emboli however showed bilateral diffuse lower lobe predominant groundglass opacities concerning for COVID-19 pneumonia. Venous Doppler negative for DVT Significantly elevated inflammatory markers. Patient has been noncompliant with his oxygen, frequently removing his high flow nasal cannula and also not compliant with his proning protocol. His respiratory status worsen along with his agitation prompted desaturations eventually needing intubation and mechanical ventilatory support over the weekend. Patient respiratory status gradually improved since then and was successfully extubated on 10/06/2021 to nasal cannula. This morning patient is morning on 6 L nasal cannula saturating 95%, weaned to 4 L nasal cannula. We'll continue to wean as tolerated. Sputum culture growing Enterococcus faecalis pansensitive Antibiotics ampicillin to complete total of 7-day course. We'll monitor clinically and will not initiate antifungal treatment for yeast at this point of time Plan: -Continue oxygen supplementation currently at 4 L nasal cannula, wean as tolerated -Change antibiotics to ampicillin to complete a 7-day course for Enterococcus faecalis pneumonia. -We'll monitor clinically and will continue DuoNebs every 6 hours along with budesonide every 12 scheduled. -Completed 5-day course of remdesivir and 9 days dexamethasone. Continue dexamethasone for 10 days and baricitinib for 14 days -Volume optimization # Patient also noted to have mediastinal and hilar lymphadenopathy which can well be reactive. No recent prior x-rays or CT imaging available for further review. This needs to be followed as an outpatient basis, with respect to the lymphadenopathy and the possibility of underlying ILD. #Thank you for involving pulmonary in this patient care. We'll continue to follow.
--- NOTE | 2021-10-07 14:31 | HMH.SLDYSPHA ---
Speech & Language Evaluation Speech/Language Dysphagia Evaluation Start: 10/07/21 14:09 Freq: ONCE Status: Active Protocol: Document 10/07/21 14:09 [email or web address] (Rec: 10/07/21 14:30 SRINIVAS [id number]) Dysphagia Assess/Goals/Plan Assessment Date of Evaluation: 10/07/21 Evaluation Type Initial Certification Assessment/Problems Consult following extubation 10/06/2021. Does Patient Qualify for Service Yes Recommendations PHYSICIAN CERTIFICATION: The specified therapy services are required, authorized, and reviewed every 30 days. Diet Recommendations Mechanical Soft Liquid Type Recommendations [place] Consistency SL Swallow Guidelines Assist w/all meals,Standard Aspiration Prec.,Eat at slow rate Dysphagia Swallow Precautions/Strategies Sitting Upright (90 deg),Small Bites and Sips Place Food on Either side of Mouth Plan Pt/Guardian verbally ack understanding Yes of dx/prognosis/goals Pt/Guardian verbally ack understanding Yes of/consent to tx prog G -code Required No Education Instructions provided Diet recommendations discussed with patient, nursing, and care management. Pt/Caregiver able to recall information Unable to ind. understand Reinforcement needed Yes Speech & Language HPI History Present Illness Description of Patient Problem COVID positive, extrubated on 10/06/2021, following a 3 day intubation. General Information General Current Food Consistancy NPO Oxygen Status Nasal Cannula Facial Symmetry Symmetrical Patient Orientation Person Ability to Follow Directions Fair Dysphagia:Food Presentation Evaluation Food Type Pureed,Mechanical Soft,Liquid, Pudding Normal/Thin Liquid Response Unable to suck straw,Coughing after swallow Honey Consistency Liquid Response Unable to suck straw Dysphagia Evaluation Mechanical Soft Difficulty chewing Food Behavior Response Dysphagia Evaluation Summary Clinical swallow assessment completed to analyze and assess oropharyngeal swallow. Trialed thin liquid via tsp and cup, which elicited immediate cough. Trialed nectar thick liquids via tsp and cup with no overt s/sxs of aspiration. Trialed puree and pudding with no oral resi
--- NOTE | 2021-10-07 18:02 | PC.NURSE ---
Pt has been pleasant and cooperative this shift. Alert to person and occasionally place. Pt is currently receiving O2 via NC @ 4 LPM with sats. >90%. Lungs CTA. Telemetry reveals NSR. No edema noted. Skin is C/D/I. Abdomen is flat, soft, and non-tender. F/C is patent and draining clear, yellow urine at bedside to gravity. No BM thus far today. Pt remains NPO and has received oral care Q2H this shift. Pt has also been turned/repositioned Q2H this shift. 20 G peripheral IV in the LT upper arm is patent and infusing NS @ 100 ML/HR. 20 G peripheral IV in the LT hand is patent and SL. VSS. Call light within reach. Will continue to monitor.
--- NOTE | 2021-10-07 18:18 | HMH.PTEV ---
Physical Therapy Evaluation Rehab PT IP Evaluation Start: 10/07/21 09:27 Freq: ONCE Status: Active Protocol: Document 10/07/21 18:13 AMY (Rec: 10/07/21 18:17 AMY [id number]) Subjective/History History History this patient presented to the ed -e states that he thinks he caught the Covid. He has no known exposures, but started getting sick a week ago on Thanksgiving after taking his father home to [facility]. He began feeling like he had the flu. He has had a cough. For the past few days he has shortness of breath and has been checking his pulse oximetry at home and today was as low as the 70s on room air . He does not have any chronic medical problems and does not have a primary care physician. He is a smoker. He has not been vaccinated against Covid. pt was admitted for covid-19 treatment - Subjective Subjective Pt somewhat sedated and sleepy but did agree to attempt PT Rehab PT IP Eval Objective Appearance Patient Behavior Sedated,Fatigued,Confused Patient Orientation Place,Name,Birthday Difficulty following instructions moderate Speech Pattern Appropriate,Soft-Spoken, Difficulty Finding Words Ambulation Patient Able to Ambulate No Balance Ability to Arise Unable Sitting Balance Leans or slides in chair Standing Balance Unsteady Dynamic Sitting Balance Ability Fair Dynamic Standing Balance Ability Zero Transfers Bed Transfer Ability Moderate x 1 (50% assist) Sit to Stand Bed Transfer Ability Total/Dependent (100%) Rehab PT IP prob,goals,plan Problems Date of Evaluation: 10/07/21 PT IP Problems Bed Mobility,Transfers,Gait, Balance,Self care,Safety Rehab Potential Rehab Potential Fair Equipment Needs Assistive Devices None / NA,Rolling / Wheeled Walker Plan PT Intervention Plan Bed Mobility,Transfers,Gait, Balance,Self care,Safety, Therapeutic Exercise PT Plan Frequency
[2021-10-08] VITALS (11 sets, daily range): BP systolic 134–151; BP diastolic 74–80; PULSE 68–94; RESP 18–22; TEMP 36.5–37.1; O2SAT 92–96; BMI 30.1
[2021-10-08 06:58] LABS: Basophils % 0.4 % (0.1-2.0); Eosinophils % 0.4 % (0.1-12.0); Hematocrit 47.7 % (42.0-52.0); Hemoglobin 16.2 g/dL (14.1-18.0); Lymphocytes # 1.5 K/mm3 (0.7-4.5); Lymphocytes % 13.9 % (10-50); Mean Corpuscular Hemoglobin 31.1 pg (27.0-31.2); Mean Corpuscular Volume 91.3 fl (80-94); Mean Platelet Volume 8.8 fl (7.4-10.4); Monocytes # 0.9 K/mm3 (0.1-1.0); Monocytes % 8.8 % (1.7-9.3); Neutrophils # 8.1 K/mm3 (1.8-7.8); Neutrophils % 76.4 % (37.0-80.0); Platelet Count 264 K/mm3 (142-424); Red Blood Count 5.22 M/mm3 (4.60-6.20); Red Cell Distribution Width 14.2 % (11.5-17.5); White Blood Count 10.6 K/mm3 (4.8-10.8)
[2021-10-08 07:04] LABS: Chloride 108 mmol/L (98-107)
[2021-10-08 07:05] LABS: Potassium 4.2 mmoL/L (3.5-5.1); Sodium 142 mmol/L (136-145)
[2021-10-08 07:07] LABS: Alanine Aminotransferase 106 U/L (12-78); Alkaline Phosphatase 69 U/L (38-126); Anion Gap 10.2 mEq/L (5-15); Aspartate Amino Transferase 58 U/L (17-59); Bilirubin,Total 0.9 mg/dl (0.2-1.3); Blood Urea Nitrogen 23 mg/dl (9-20); Carbon Dioxide 28 mmol/L (22.0-30.0); Creatinine Clearance Estimated 104 mL/min (50-200); Estimated Glomerular Filt Rate 114 ml/min (>60); GFR (African American) 138 ML/MIN (>60)
[2021-10-08 07:08] LABS: Albumin Level 3.5 g/dl (3.5-5.0); Albumin/Globulin Ratio 1.2 (1.1-1.8); Calcium 8.3 mg/dl (8.4-10.2); Glucose 100 mg/dl (74-100); Total Protein,Serum 6.5 g/dl (6.3-8.2)
--- NOTE | 2021-10-08 08:18 | DIET.NUTRFU ---
Pt was successfully extubated. CIGARETTE PACKING MACHINE OPERATOR has performed an evaluation and recommend mechanical soft ground with nectar thick liquids. Pt is still currently NPO. Will monitor diet advancement and add supplements if deemed beneficial.
--- NOTE | 2021-10-08 09:51 | HMH.ACPN2 ---
Internal Medicine - PN: Subj *Date: 10/08/21 *Time: 08:35 Interval history: pt sitting up in bed having speech eval, pt states doing well and would like to go home Exam Vital signs and Labs for Last 24 Hours: Temp Pulse Resp BP Pulse Ox 97.9 F 80 18 149/78 H 92 L 10/08/21 07:51 10/08/21 08:00 10/08/21 08:00 10/08/21 07:51 10/08/21 08:00 Laboratory Results - last 24 hr 10/07/21 09:55: Sodium 140, Potassium 4.0 D, Chloride 105, Carbon Dioxide 30, Anion Gap 9.0, BUN 23 H, Creatinine 0.70, Estimated Creat Clear 104, Estimated GFR 114, Est GFR ( Amer) 138, Glucose 100, Calcium 7.9 L, Total Bilirubin 0.9, AST 61 H, ALT 105 H, Alkaline Phosphatase 72, Total Protein 6.3, Albumin 3.4 L D, Globulin 2.9, Albumin/Globulin Ratio 1.2 10/07/21 09:55: WBC 11.7 H, RBC 5.17, Hgb 16.3, Hct 46.6, MCV 90.2, MCH 31.5 H, MCHC 34.9, RDW 14.2, Plt Count 259, MPV 9.5, Neut % (Auto) 82.1 H, Lymph % (Auto) 9.2 L, [place] % (Auto) 7.5, Eos % (Auto) 0.7, Baso % (Auto) 0.5, Neut # (Auto) 9.6 H, Lymph # (Auto) 1.1, [place] # (Auto) 0.9, Eos # (Auto) 0.1, Baso # (Auto) 0.1 10/08/21 06:42: Sodium 142, Potassium 4.2, Chloride 108 H, Carbon Dioxide 28, Anion Gap 10.2, BUN 23 H, Creatinine 0.70, Estimated Creat Clear 104, Estimated GFR 114, Est GFR ( Amer) 138, Glucose 100, Calcium 8.3 L, Total Bilirubin 0.9, AST 58, ALT 106 H, Alkaline Phosphatase 69, Total Protein 6.5, Albumin 3.5, Globulin 3.0, Albumin/Globulin Ratio 1.2 10/08/21 06:42: WBC 10.6, RBC 5.22, Hgb 16.2, Hct 47.7, MCV 91.3, MCH 31.1, MCHC 34.0, RDW 14.2, Plt Count 264, MPV 8.8, Neut % (Auto) 76.4, Lymph % (Auto) 13.9, [place] % (Auto) 8.8, Eos % (Auto) 0.4, Baso % (Auto) 0.4, Neut # (Auto) 8.1 H, Lymph # (Auto) 1.5, [place] # (Auto) 0.9, Eos # (Auto) 0.0, Baso # (Auto) 0.0 I & O for Last 24 hours: Intake & Output 10/05/21 10/06/21 10/07/21 10/08/21 11:59 11:59 11:59 11:59 Intake Total 2850.708 / 2850.708 4759.875 / 4954.875 395 / 395 1790 / 1790 Output Total 2200 / 2400 3810 / 4000 6385 / 6385 1425 / 1425 Balance 650.708 / 450.708 949.875 / 954.875 -5990 / -5990 365 / 365 Weight 216 lb 9.011 oz 216 lb 8.996 oz 215 lb 6.4 oz 215 lb 6.4 oz Microbiology Reports for the Last 24 Hours: Microbiology 10/03/21 14:20 Sputum - Expectorated Sputum - Final Not Reportable 10/03/21 14:20 Sputum - Expectorated Sputum - Final Not Reportable 10/03/21 14:20 Sputum - Expectorated Sputum - Final Not Reportable 10/03/21 14:20 Sputum - Expectorated Sputum - Final Not Reportable 10/03/21 14:20 Sputum - Expectorated Sputum Gram Stain - Final 10/03/21 14:20 Sputum - Expectorated Sputum Sputum Culture - Final Enterococcus faecalis Yeast - Constitutional no acute distress - *Routine HEENT Exam Head: Present: normocephalic Eye: Present: PERRL ENT: Present: mucous membranes moist - *Routine Neck Exam Present: supple. Absent: lymphadenopathy - *Routine Respiratory Exam Present: CTA bilaterally - *Routine Cardiovascular Exam Present: RRR - *Routine Abdominal Exam Present: soft, normoactive bowel sounds. Absent: tenderness - *Routine Extremities Exam Absent: cyanosis, clubbing, edema - *Routine Skin Exam Present: warm. Absent: rash - *Routine Neurological Exam Present: alert, oriented X3 Assessment and Plan (1) Obesity (BMI 30-39.9) Status: Acute Category: Medical Code(s): E66.9 - Obesity, unspecified (2) Pneumonia due to COVID-19 virus Status: Acute Category: Medical Code(s): U07.1 - COVID-19; J12.82 - Pneumonia due to coronavirus disease 2019 (3) Respiratory failure with hypoxia Status: Acute Qualifiers: Chronicity: acute Qualified Code(s): J96.01 - Acute respiratory failure with hypoxia Category: Medical Code(s): J96.91 - Respiratory failure, unspe
--- NOTE | 2021-10-08 11:08 | SW/DCPLANNER ---
Addendum entered by [facility] 10/12/21 10:20: Patient information/order has also been faxed to [facility] for a nebulizer machine. Addendum entered by [facility] 10/09/21 14:28: Kate rubio/ Brenda has stated that portable O2 tank will be delivered. Addendum entered by [facility] 10/09/21 13:18: S.O. has been to visit this patient: the plan is for patient to discharge home (possibly today) and return to [facility] for outpatient PT services. Patient information/order will be faxed to [facility] for home O2 + portable tank. Addendum entered by [facility] 10/09/21 10:59: Patient is not agreeable to placement at [facility] at time of discharge. Patient stated that he will be returning home once he is medically stable. I will set patient up with home health vs outpatient PT and home O2. Discharge date is unknown at this time. I will update Eugonda/S.O. regarding situation. Addendum entered by [facility] 10/09/21 10:08: Per Moni Salazar: The preadmission screen is in the [employer]?s review. started ins auth this morning Addendum entered by [facility] 10/09/21 09:53: I have left a voicemail for Moni Salazar to return my phone call regarding referral for this patient. I will also update patients S.O. regarding status. Moni Salazar: [phone] Addendum entered by [facility] 10/08/21 11:30: Patient information has been faxed to Radha Salazar. I will follow up with Radha once patient information is reviewed. I will also follow up with this patient this afternoon. Original Note: I spoke with this patient significant other regarding discharge plans. Significant other stated that patient resides at home with her and she is home with patient 16/05. I explained to S.O. that patient was evaluated by PT and placement has been recommended at this time. I also explained different discharge options: placement vs home with home health. After a lengthy discussion S.O. stated that she would prefer to take patient home at time of discharge with home health services. Patient does have a commercial insurance and I have asked Leanne rubio/ Nel of to review for home health policy. Leanne has stated that patient does have a $1,500 deductible w/ co-pay. I will follow up with S.O. regarding information and also have a discussion regarding [facility]. Jocelyne has stated this AM that patient could potentially be ready for discharge tomorrow.
--- NOTE | 2021-10-08 14:19 | HMH.OTEV ---
OT Inpatient Evaluation Rehab OT IP Evaluation Start: 10/08/21 11:28 Freq: ONCE Status: Complete Protocol: Document 10/08/21 14:14 LEESA (Rec: 10/08/21 14:19 LEESA [id number]) Rehab OT IP Assessment Subjective History this patient presented to the ed -e states that he thinks he caught the Covid. He has no known exposures, but started getting sick a week ago on Thanksgiving after taking his father home to [facility]. He began feeling like he had the flu. He has had a cough. For the past few days he has shortness of breath and has been checking his pulse oximetry at home and today was as low as the 70s on room air . He does not have any chronic medical problems and does not have a primary care physician. He is a smoker. He has not been vaccinated against Covid. pt was admitted for covid-19 treatment - Patient lives in 1 story home with 2-3 RUBINA with girlfriend. Prior to hospitalization, Patient was independent with ADLs and fx'l mobility. Patient's gf provided transportation for outside appointments. Subjective I can get up. Instructed Patient on safety awareness during sit->stand transfers with usage of no AE/ devices. Patient completed transfers and ambulation with Min A x2. Patient ambulated ~ 50ft with completing 360 turn. No LOB noted. Left Patient sitting up in recliner with needs met. Patient required Max A for Lb Drsg during evaluation. Objective Patient Orientation Person,Place,Name,Birthday, Year Upper Extremity Gross ROM WFL Transfer Training Sit/Stand/Pivot Transfer Assist Level
--- NOTE | 2021-10-08 16:33 | PC.NURSE ---
Pt has been pleasant and cooperative this shift. A&O. Pt is currently receiving O2 via NC @ 3 LPM with sats. >90%. Lungs CTA. No edema noted. Skin is C/D/I. Abdomen is flat, soft, and non-tender. F/C is patent and draining clear, yellow urine at bedside to gravity. No BM thus far today. Pt is tolerating a mechanical soft diet well and is taking PO medications crushed with applesauce. Pt worked with PT today and ambulates with assistance X1. Pt is currently sitting up in the recliner and has been there for several hours. 20 G peripheral IV in the LT upper arm is patent and infusing NS @ 100 ML/HR. 20 G peripheral IV in the RT hand is patent and SL. VSS. Call light within reach. Will continue to monitor.
--- NOTE | 2021-10-08 16:56 | PC.NURSE ---
Pt has been pleasant and cooperative this shift. A&O. Pt is currently receiving O2 via NC @ 3 LPM with sats. >90%. Lungs CTA. No edema noted. Skin is C/D/I. Abdomen is flat, soft, and non-tender. F/C DC'd today and pt is using a urinal to void clear, noa urine without issue. No BM thus far today. Pt is tolerating a mechanical soft diet well and is taking PO medications crushed with applesauce. Pt worked with PT today and ambulates with assistance X1. Pt is currently sitting up in the recliner and has been there for several hours. 20 G peripheral IV in the LT upper arm is patent and infusing NS @ 100 ML/HR. 20 G peripheral IV in the RT hand is patent and SL. VSS. Call light within reach. Will continue to monitor.
[2021-10-09] VITALS: BP 128/64; PULSE 68; RESP 18; TEMP 36.6; O2SAT 93
[2021-10-09 04:00] VITALS: BP 126/68; PULSE 64; RESP 18; TEMP 36.6; O2SAT 94
[2021-10-09 05:00] VITALS: BMI 30.1
[2021-10-09 06:33] VITALS: PULSE 71; PULSE 73; O2SAT 95
[2021-10-09 08:00] VITALS: BP 158/76; PULSE 79; RESP 20; TEMP 36.9; O2SAT 87; O2SAT 94
--- NOTE | 2021-10-09 10:01 | HMH.PULMPN ---
Internal Medicine - PN: Subj *Date: 10/09/21 *Time: 13:51 Interval history: No acute respiratory vents overnight. Patient admits continued improvement in his symptoms. Exam - Constitutional Constitutional:: Present: no acute distress, comfortable - HENMT Exam HENMT: Present: normocephalic, atraumatic - Eye Exam Eyes:: Present: normal appearance both eyes and related structures - Neck Exam Neck:: Present: normal visual inspection - Respiratory Exam Respiratory:: Present: able to speak in complete sentences, no respiratory distress, normal respiratory effort, rales - Cardiovascular Exam Cardiac:: Present: S1, S2 - GI Exam GI:: Present: soft, no hepatosplenomegaly - Skin Exam Skin: Present: warm, no rash - Neurological Exam Neurological: Present: alert, normal cognition - Extremities Exam Extremities: Present: no cyanosis, no clubbing, no edema Assessment and Plan (1) Obesity (BMI 30-39.9) Status: Acute Category: Medical Code(s): E66.9 - Obesity, unspecified (2) Pneumonia due to COVID-19 virus Status: Acute Category: Medical Code(s): U07.1 - COVID-19; J12.82 - Pneumonia due to coronavirus disease 2019 (3) Respiratory failure with hypoxia Status: Acute Qualifiers: Qualified Code(s): J96.01 - Acute respiratory failure with hypoxia Category: Medical Code(s): J96.91 - Respiratory failure, unspecified with hypoxia (4) Renal insufficiency Status: Acute Category: Medical Code(s): N28.9 - Disorder of kidney and ureter, unspecified (5) Elevated liver enzymes Status: Acute Category: Medical Code(s): R74.8 - Abnormal levels of other serum enzymes - Assessment and plan all Dx Assessment and Plan for all problems:: #Acute hypoxic respiratory failure: #COVID-19 pneumonia: Current smoker greater than [id number] smoking history. Yet to be vaccinated. COVID-19 PCR positive. Flu a and B negative CTA did not show any evidence of pulmonary emboli however showed bilateral diffuse lower lobe predominant groundglass opacities concerning for COVID-19 pneumonia. Venous Doppler negative for DVT Significantly elevated inflammatory markers. Patient has been noncompliant with his oxygen, frequently removing his high flow nasal cannula and also not compliant with his proning protocol. His respiratory status worsen along with his agitation prompted desaturations eventually needing intubation and mechanical ventilatory support over the weekend. Patient respiratory status gradually improved since then and was successfully extubated on 10/06/2021 to nasal cannula. Sputum culture growing Enterococcus faecalis pansensitive Antibiotics ampicillin to complete total of 7-day course. We'll monitor clinically and will not initiate antifungal treatment for yeast at this point of time. Repeat CRP @ 25 Plan: -Activity as tolerated -Incentive spirometry -Continue oxygen supplementation currently at 3-4 L nasal cannula, wean as tolerated to maintain O2 saturation goal of 90% and above -Continue ampicillin to complete a 7-day course for Enterococcus faecalis pneumonia. -Continue DuoNebs every 6 hours along with budesonide every 12 scheduled, patient can be discharged on triple inhaler therapy. -Completed 5-day course of remdesivir and 10 days dexamethasone and baricitinib, being discharged today. -Volume optimization # Patient also noted to have mediastinal and hilar lymphadenopathy which can well be reactive. No recent prior x-rays or CT imaging available for further review. This needs to be followed as an outpatient basis, with respect to the lymphadenopathy and the possibility of underlying ILD. #Thank you for involving pulmonary in this patient care. We will follow the patient in pulmonary clinic in 3 weeks.
[2021-10-09 12:00] VITALS: BP 140/69; PULSE 79; RESP 18; TEMP 36.9; O2SAT 89
--- NOTE | 2021-10-09 13:32 | HMH.DCSUM ---
General - General Admission date:: 09/27/21 Discharge date: 10/09/21 HPI HPI: this patient presented to the ed -e states that he thinks he caught the Covid. He has no known exposures, but started getting sick a week ago on after taking his father home to [facility]. He began feeling like he had the flu. He has had a cough. For the past few days he has shortness of breath and has been checking his pulse oximetry at home and today was as low as the 70s on room air. He does not have any chronic medical problems and does not have a primary care physician. He is a smoker. He has not been vaccinated against Covid. pt was admitted for covid-19 treatment - Hospital Course Hospital Course: Laboratory Tests 09/27/21 09/27/21 09/27/21 11:53 11:53 11:53 WBC 3.5 L RBC 6.07 Hgb 19.2 H Hct 56.4 H MCV 92.9 MCH 31.6 H MCHC 34.0 RDW 13.9 Plt Count 145 MPV 9.8 Neut % (Auto) 69.5 Lymph % (Auto) 22.0 [place] % (Auto) 7.4 Eos % (Auto) 0.2 Baso % (Auto) 1.0 Neut # (Auto) 2.4 Lymph # (Auto) 0.8 [place] # (Auto) 0.3 Eos # (Auto) 0.0 Baso # (Auto) 0.0 PT INR APTT D-Dimer Specimen Source O2 % ABG pH ABG pCO2 ABG pO2 ABG HCO3 ABG Total CO2 ABG O2 Saturation ABG Base Excess Mauricio Test ABG Lactate VBG pH VBG pCO2 VBG pO2 VBG HCO3 VBG Total CO2 VBG O2 Saturation VBG Base Excess Vent Rate Tidal Volume PEEP Sodium 138 Potassium 4.5 Chloride 100 Carbon Dioxide 27 Anion Gap 15.5 H BUN 40 H Creatinine 1.40 H Estimated Creat Clear 80 Estimated GFR 51 L Est GFR ( Amer) 62 Glucose 134 H Lactate Calcium 8.2 L Ferritin Total Bilirubin 0.6 Direct Bilirubin Conjugated Bilirubin Indirect Bilirubin Unconjugated Bilirubin AST 434 H* ALT 241 H Alkaline Phosphatase 99 Ammonia Lactate Dehydrogenase C-Reactive Protein Total Protein 7.1 Albumin 4.1 Globulin 3.0 Albumin/Globulin Ratio 1.4 Vitamin B12 Procalcitonin Urine Color Urine Appearance Urine pH Ur Specific [place] Urine Protein Urine Glucose (UA) Urine Ketones Urine Blood Urine Nitrate Urine Bilirubin Urine Urobilinogen Ur Leukocyte Esterase Urine RBC Urine WBC Ur Squamous Epith Cells Urine Bacteria SARS-CoV-2 (PCR) Detected A Influenza A Untype (PCR) Not detected Influenza Type B (PCR) Not detected 09/27/21 09/27/21 09/27/21 11:53 11:53 11:53 WBC RBC Hgb Hct MCV MCH MCHC RDW Plt Count MPV Neut % (Auto) Lymph % (Auto) [place] % (Auto) Eos % (Auto) Baso % (Auto) Neut # (Auto) Lymph # (Auto) [place] # (Auto) Eos # (Auto) Baso # (Auto) PT 11.5 INR 1.02 APTT 26.8 D-Dimer 2.37 H Specimen Source O2 % ABG pH ABG pCO2 ABG pO2 ABG HCO3 ABG Total CO2 ABG O2 Saturation ABG Base Excess Mauricio Test ABG Lactate VBG pH VBG pCO2 VBG pO2 VBG HCO3 VBG Total CO2 VBG O2 Saturation VBG Base Excess Vent Rate Tidal Volume PEEP Sodium Potassium Chloride Carbon Dioxide Anion Gap BUN Creatinine Estimated Creat Clear Estimated GFR Est GFR ( Amer) Glucose Lactate Calcium Ferritin Total Bilirubin Direct Bilirubin Conjugated Bilirubin Indirect Bilirubin Unconjugated Bilirubin AST ALT Alkaline Phosphatase Ammonia Lactate Dehydrogenase C-Reactive Protein 99.0 H Total Protein Albumin Globulin Albumin/Globulin Ratio Vitamin B12 Procalcitonin Urine Color Urine Appearance Urine pH Ur Specific [place] Urine Protein Urine Glucose (UA) Urine Ketones Urine Blood Urine Nitrate
[2021-10-09 14:14] VITALS: O2SAT 85
== END 2021-10-09 15:53 | disposition home or self-care (01) | DRG 208 ==
LOC: ER 13:54 → 2ND 15:07
PROVIDERS: Internal Medicine Pulmonary Disease; Nurse Practitioner Family; Admitting Provider Emergency Medicine; Emergency Provider Emergency Medicine; Visit Provider Emergency Medicine
DX: U07.1 COVID-19 (principal); J12.82 Pneumonia due to coronavirus disease 2019; J96.01 Acute respiratory failure with hypoxia; F17.210 Nicotine dependence, cigarettes, uncomplicated; E66.9 Obesity, unspecified; Z68.30 Body mass index [BMI] 30.0-30.9, adult; N28.9 Disorder of kidney and ureter, unspecified; R74.8 Abnormal levels of other serum enzymes; Z91.19 Patient's noncompliance with other medical treatment and regimen
CPT/HCPCS: 31500; 94002; 36415; 71045; 71275; 80048; 80053; 80076; 81001; 82140; 82607; 82728; 82803; 83605; 83615; 84145; 85025; 85378; 85610; 85730; 86140; 87040; 87070; 87077; 87081; 87102; 87186; 87205; 87206; 92526; 92610; 93005; 93970; 94003; 94640; 94760; 94761; 97110; 97116; 97163; 97165; 97530; 99285; C9803; J0290; J0456; J2704; Q9967; U0003; U0005

== ENCOUNTER → 2021-10-29 16:21 | Outpatient (CLI) | payer BC, SELFPAY | PROVIDERS: Visit Provider Family Medicine | DX: L89.329 Pressure ulcer of left buttock, unspecified stage; L89.319 Pressure ulcer of right buttock, unspecified stage; B95.2 Enterococcus as the cause of diseases classified elsewhere | CPT/HCPCS: 87070; 87077; 87186; 87205 ==

== ENCOUNTER 2021-11-10 14:30 | Outpatient (RCR) | payer BC, SELFPAY ==
--- NOTE | 2021-11-03 16:00 | HMH.PTOPEV ---
PT Outpatient Evaluation Rehab PT Outpatient Evaluation Start: 11/03/21 15:49 Freq: Status: Active Protocol: Document 11/03/21 15:50 JADEN (Rec: 11/03/21 15:59 PHORNE [id number]) Electronically Signed By Johan Guillen, PT 11/03/21 15:50 Outpatient Therapy Subjective History Subjective History Pt is 61 yowm who presents ~ 1 mo S/P 2 wk hospitalization due to SARS/COVID-19 requiring ventilation x ~ 4 days. He reports he feels generally weak, but much better than he was 1 wk ago. He reports has is using much less oxygen via NC now also. He reports feeling shaky even with short term and fine motor control tasks. He also reports multiple problems with COVID brain fog i.e.: word finding difficulty, short term memory , mutitasking. He reports no other PMH. Chief Complaint Weakness Symptoms Relieved By Rest/Positioning Symptoms Aggravated By Physical Activity Prior Functional Limitations None Current Functional Limitations Lifting,Housework,Recreation Activity,Walking,Balance Symptom Description Activity Dependent Level of pain today (0-10) 0 Pain scale - at its worst (0-10) 0 Balance Eval Gait/Posture Asssessment General Gait Observation Wide Based Gait,Decrease Stride Lngth (R),Decrease Stride Lngth (L) Assistive Devices Straight Cane Level of Transfer Assist Independent Timed Up and Go Test 1. Is the Timed Up and Go test result > yes or = to 12 seconds? Outpatient Therapy Assessment Impairments Problems/Impairmments Impaired Strength,Impaired Endurance,Impaired Transfers, Impaired Gait Pattern,Impaired Walking,Impaired Standing, Impaired Lifting,Impaired Household Care,Impaired Recreational Activities, Impaired Self Care/Self Management Prognosis Rehab Potential Good Clinical Impression Consistent with Diagnosis Yes Short Term Goals Number of Weeks 4 Increase Endurance Yes Improve Transfers Yes Improve Gait Pattern without Assistive
== END 2021-11-10 14:35 | disposition home or self-care (01) ==
LOC: PT 14:30
PROVIDERS: PCP Emergency Medicine; Visit Provider Emergency Medicine
DX: M62.81 Muscle weakness (generalized) (principal); U09.9 Post COVID-19 condition, unspecified
CPT/HCPCS: 97163

== ENCOUNTER → 2021-12-02 14:31 | Outpatient (CLI) | payer BC, SELFPAY ==
--- NOTE | 2021-12-02 14:34 | XR_ITS ---
FINAL REPORT CLINICAL HISTORY: covid follow up ..pt had covid sep 27 COMPARISON: October 07, 2021 FINDINGS: Two views of the chest were obtained. The heart size and pulmonary vascularity are within normal limits. The mediastinum is normal. There are persistent but improved bilateral pulmonary opacities consistent with improved pneumonia. There is no pneumothorax. The bony thorax is intact. IMPRESSION: Persistent but improved bilateral pneumonia. Reviewed, Interpreted and Dictated by Jeremy Gill III, MD Transcribed by Lobo Wallis Authenticated by Jeremy Gill III, MD on 12/02/2021 03:23:30 PM [facility]
== END ==
PROVIDERS: PCP Family Medicine; Visit Provider Family Medicine
DX: U07.1 COVID-19 (principal); J12.82 Pneumonia due to coronavirus disease 2019
CPT/HCPCS: 71046

== ENCOUNTER → 2021-12-03 16:00 | Outpatient (CLI) | payer BC, SELFPAY ==
[2021-12-03 21:27] LABS: Alanine Aminotransferase 18 U/L (12-78); Albumin Level 4.3 g/dl (3.5-5.0); Albumin/Globulin Ratio 1.5 (1.1-1.8); Alkaline Phosphatase 71 U/L (38-126); Anion Gap 14.5 mEq/L (5-15); Aspartate Amino Transferase 23 U/L (17-59); Bilirubin,Total 0.4 mg/dl (0.2-1.3); Blood Urea Nitrogen 15 mg/dl (9-20); Carbon Dioxide 23 mmol/L (22.0-30.0); Chloride 105 mmol/L (98-107); Estimated Glomerular Filt Rate 136 ml/min (>60); GFR (African American) 165 ML/MIN (>60); Globulin 2.8 g/dL (1.3-3.2); Glucose 84 mg/dl (74-100); Potassium 4.5 mmoL/L (3.5-5.1); Sodium 138 mmol/L (136-145); Total Protein,Serum 7.1 g/dl (6.3-8.2)
== END ==
PROVIDERS: Visit Provider Family Medicine
DX: N28.9 Disorder of kidney and ureter, unspecified (principal)
CPT/HCPCS: 80053

== ENCOUNTER → 2021-12-09 14:26 | Outpatient (CLI) | payer BC, SELFPAY | PROVIDERS: Visit Provider Family Medicine | DX: L24.A9 Irritant contact dermatitis due friction or contact with other specified body fluids (principal); B95.5 Unspecified streptococcus as the cause of diseases classified elsewhere | CPT/HCPCS: 87070; 87077; 87186; 87205 ==

== ENCOUNTER → 2021-12-17 15:20 | Outpatient (CLI) | payer BC, SELFPAY ==
--- NOTE | 2021-12-17 15:24 | XR_ITS ---
FINAL REPORT TECHNIQUE: Chest PA & Lateral CLINICAL HISTORY: covid COMPARISON: December 02, 2021 FINDINGS: 2 views of the chest were performed. The heart size is normal. The mediastinum is within normal limits. There is patchy airspace opacity in the right mid lung, slightly improved , probably due to resolving pneumonia. There are no pleural effusions. There is no pneumothorax. The bony thorax appears intact. IMPRESSION: Resolving right midlung pneumonia. Reviewed, Interpreted and Dictated by Arnold Valenzuela MD Transcribed by Lobo Wallis Authenticated by Arnold Valenzuela MD on 12/17/2021 04:52:22 PM [facility]
== END ==
PROVIDERS: PCP Family Medicine; Visit Provider Family Medicine
DX: R06.09 Other forms of dyspnea (principal); U09.9 Post COVID-19 condition, unspecified
CPT/HCPCS: 71046

== ENCOUNTER → 2022-02-05 09:39 | Outpatient (CLI) | payer BC, SELFPAY ==
--- NOTE | 2022-02-05 10:30 | PC.NURSE ---
PFT Completed without incident. Pt gave a very good effort and demonstrated understanding well. Albuterol 0.083% given via HHN, per written protocol, Pt tolerated tx well. 6 Minute Walk Test completed without incident.
== END ==
PROVIDERS: PCP Family Medicine; Visit Provider Internal Medicine Pulmonary Disease
DX: R06.00 Dyspnea, unspecified (principal)
CPT/HCPCS: 94060; 94618; 94726; 94729

== ENCOUNTER 2022-02-10 14:00 | Outpatient (RCR) | payer BC, SELFPAY ==
--- NOTE | 2021-10-29 15:30 | HMH.PTOPWND ---
Rehab Outpt Wound Evaluation Rehab OP Wound Evaluation Start: 10/29/21 15:17 Freq: Status: Active Protocol: Document 10/29/21 15:21 JADEN (Rec: 10/29/21 15:30 PHORNE [id number]) Electronically Signed By Johan Guillen, PT 10/29/21 15:21 Subjective/History History History Pt is 61 yowm who presents with sacral pressure injuries x ~ 1-2 mos after long hospital stay requiring ventilation due to COVID-19. Pt reports increased soreness in the are for several weeks now and was discharged home with no instructions for care of this area. Wounds appear partial thickness at this time with increased serous drainage. Subjective Subjective Pt reports pain 7/10 at rest in the sacral area and increased with dressing changes. Wound Eval Wound Left Sacrum Wound Type Pressure Ulcer Is This a Chronic Wound Yes Wound Staging Stage II Query Text:Stage I - Unbroken, red skin, no blanching. Stage II - Skin broken, superficial skin loss involving epidermis alone or also dermis. Partial loss of skin layers. Stage III - Pressure area involves epidermis, dermis and subcutaneous tissue, full thickness skin loss. Stage IV - Pressure area involves epidermis, subcutaneous tissue, bone and other supportive tissue. Full thickness skin loss with extensive destruction of underlying tissue and structures. Wound Length (cm) 3.2 Wound Width (cm) 2.0 Wound Bed Appearance [place],Yellow Wound Margins Description Well Defined Surrounding Tissue Appearance [place],Dark Red,Purple,Indurated Drainage Description Serous Drainage Amount Small Primary Dressing Composite Comment optifoam gentle sacrum Wound Debridement Method Gauze Wound Debridement Amount of Tissue None Removed Dressing Change Patient Tolerance Tolerated Well Right Sacrum Wound Type Pressure Ulcer Is This a Chronic Wound Yes Wound Staging Stage II Query Text:Stage I - Unbroken, red skin, no blanching. Stage II - Skin broken, superficial skin loss involvi
--- NOTE | 2021-12-02 14:33 | HMH.RHREAS ---
Rehab Reassessment Rehab OP Re-assessment Start: 12/02/21 14:30 Freq: Status: Active Protocol: Document 12/02/21 14:31 JADEN (Rec: 12/02/21 14:33 JADEN [id number]) Electronically Signed By Johan Guillen, PT 12/02/21 14:31 Rehab Re-assessment Subjective Subjective Pt reports he had been feeling better, but new increased drainage happened from sacral wound. Objective Objective Notes Superior sacral wound with increased depth of tunneling at 1 o'clock of 3.0 cm. Wound Size: L= 4.0 cm, W= 0.8 cm, D= 0.5 cm. Wound base is 100% yellow fibrous material, likely slough. Assessment Progress Assessment Progressing as Expected Assessment Notes Pt has shown significant decrease in overall wound area , but now has increased tunneling depth and drainage. He also reports increasing pain with activity in the wound area. Continues to need debridement and dressing changes. Patient goals met ST,2,3 Goals Not Met LT,2,3 Revised Goals none Plan Plan Continue per initial POC. Frequency of Therapy 1-2 x/wk Duration of therapy 8 wks Time and Billing Re-Eval Time 15 Re-Eval Billing Units 1 PHYSICIAN CERTIFICATION: I certify the specified therapy services for Donte Hernandez are required, authorized, and reviewed every 30 days.
--- NOTE | 2021-12-30 14:29 | HMH.RHREAS ---
Rehab Reassessment Rehab OP Re-assessment Start: 12/02/21 14:30 Freq: Status: Active Protocol: Document 12/30/21 14:27 JADEN (Rec: 12/30/21 14:29 JADEN [id number]) Electronically Signed By Johan Guillen, PT 12/30/21 14:27 Rehab Re-assessment Subjective Subjective Pt continues to reports no c/o pain. Objective Objective Notes Superior sacral wound: L= 2.2 cm, W= 0.4 cm, D= 1.2 cm. Wound base is 90% granulation tissue. Undermining remains 2. 6 cm at 12-2 o'clock Assessment Progress Assessment Progressing as Expected Assessment Notes Much improved tissue quality in wound bed and angel-wound skin. Healing steadily with decreased drainage noted. Patient goals met ST,2,3 Goals Not Met LT,2,3 Revised Goals none Plan Plan Continue per initial POC. Frequency of Therapy 1-2 x/wk Duration of therapy 8 wks Time and Billing Re-Eval Time 15 Re-Eval Billing Units 1 PHYSICIAN CERTIFICATION: I certify the specified therapy services for Donte Hernandez are required, authorized, and reviewed every 30 days.
--- NOTE | 2022-02-10 14:17 | HMH.RHREAS ---
Rehab Reassessment Rehab OP Re-assessment Start: 12/02/21 14:30 Freq: Status: Active Protocol: Document 02/10/22 14:16 JADEN (Rec: 02/10/22 14:17 JADEN [id number]) Electronically Signed By Johan Guillen, PT 02/10/22 14:16 Rehab Re-assessment Subjective Subjective Pt with no c/o, If I was any better I couldn't stand it. Objective Objective Notes Sacral wound L= 1.1 cm, W= 0.2 cm, D= 1.2 cm. No undermining noted at this time. Well granulated tissue at wound base. Assessment Progress Assessment Progressing as Expected Assessment Notes Much improved over the past 2 wks with no undermining noted now. Continues to heal well, but depth needs to improve. Minimal maceration in angel- wound skin. Patient goals met ST,2,3 Goals Not Met LT,2,3 Revised Goals none Plan Plan Continue per initial POC. Frequency of Therapy 1 x/wk Duration of therapy 4 wks Time and Billing Re-Eval Time 15 Re-Eval Billing Units 1 PHYSICIAN CERTIFICATION: I certify the specified therapy services for Donte Hernandez are required, authorized, and reviewed every 30 days.
== END 2022-02-10 14:05 | disposition home or self-care (01) ==
LOC: PT 14:00
PROVIDERS: Visit Provider Family Medicine
DX: L89.152 Pressure ulcer of sacral region, stage 2 (principal); Z86.16 Personal history of COVID-19
CPT/HCPCS: 97162; 97164; 97597

== ENCOUNTER → 2022-05-20 15:13 | Outpatient (CLI) | payer BC, SELFPAY ==
--- NOTE | 2022-05-20 15:14 | CT_ITS ---
FINAL REPORT TECHNIQUE: Thin section axial images were obtained from the lung apices through the upper abdomen without contrast. This study was performed with techniques to keep radiation doses as low as reasonably achievable (ALARA). Individualized dose reduction techniques using automated exposure control or adjustment of mA and/or kV according to the patient's size were employed. CLINICAL HISTORY: Adenopathy COMPARISON: September 27, 2021 FINDINGS: There is interval improvement in mediastinal and hilar lymphadenopathy. A subcarinal lymph node measures 16 mm and previously measured 24 mm. Right infrahilar adenopathy measures 17 mm and previously measured 27 mm. There is no axillary lymphadenopathy. There is no pleural or pericardial effusion. The previous ground-glass opacities have near completely resolved with minimal residual opacity in the right greater than left upper lobes. Emphysematous changes are present. Limited, unenhanced evaluation of the upper abdomen is without acute abnormality. There is no acute osseous abnormality. IMPRESSION: Significantly improved lymphadenopathy, favor reactive. Significantly improved ground-glass opacities, favor infectious or inflammatory etiology. Reviewed, Interpreted and Dictated by Kati Gibson MD Transcribed by Lobo Wallis Authenticated and [facility]
== END ==
PROVIDERS: PCP Family Medicine; Visit Provider Internal Medicine Pulmonary Disease
DX: R59.0 Localized enlarged lymph nodes (principal)
CPT/HCPCS: 71250

== ENCOUNTER → 2023-04-04 14:52 | Outpatient (CLI) | payer BC, SELFPAY | PROVIDERS: PCP Family Medicine; Visit Provider Internal Medicine Pulmonary Disease | DX: R06.02 Shortness of breath (principal) | CPT/HCPCS: 94762 ==

== ENCOUNTER → 2023-05-25 12:35 | Outpatient (CLI) | payer MEDICARE, SELFPAY ==
--- NOTE | 2023-05-25 12:35 | CT_ITS ---
FINAL REPORT CLINICAL HISTORY: lung cancer screening former smoker, smoked 1 ppd x 40 years. family hx of lung cancer COMPARISON: 05/20/2022 FINDINGS: CT CHEST LOW DOSE SCREENING HISTORY: Screening exam for lung cancer. Former smoker, 40 pack year smoking history DOSE: CTDIvol: 2.9 mGy, DLP: 109.16 mGy*cm COMPARISON: 05/20/2022. TECHNIQUE: Axial CT without IV contrast administration using low dose protocol FINDINGS: No mediastinal or hilar masses are seen. There is mild to moderate fibrosis and/or scar. No pulmonary lesions are seen suspicious for neoplasm. No pleural or pericardial effusion is seen . There is a 4 mm left upper lobe nodule, stable since the prior CT examination, best seen on axial image #42. No new masses or nodules are seen. IMPRESSION: Left upper lobe nodule measuring 4 mm, stable. No new masses or nodules are seen. LUNG RADS CATEGORY 2 RECOMMENDATION: 12 month LDCT follow up Reviewed, Interpreted and Dictated by Jeremy Gill III, MD Transcribed by Mili Mo Authenticated and [facility]
== END ==
PROVIDERS: PCP Family Medicine; Visit Provider Internal Medicine Pulmonary Disease
DX: Z87.891 Personal history of nicotine dependence (principal); Z12.2 Encounter for screening for malignant neoplasm of respiratory organs
CPT/HCPCS: 71271

== ENCOUNTER 2024-05-28 07:03 | Outpatient (CLI) | payer MEDICARE, SELFPAY ==
--- NOTE | 2024-05-28 07:04 | CT_ITS ---
FINAL REPORT TECHNIQUE: Thin section axial images were obtained from the lung apices to the upper abdomen by computed tomography. Reformatted images were obtained and reviewed. This study was performed with techniques to keep radiation doses al low as reasonably achievable (ALARA). Individualized dose reduction techniques using automated exposure control or adjustment of mA and/or kV according to the patient's size were employed. CLINICAL HISTORY: lung cancer screening former smoker quit 3 years ago, 2ppd x48 years COMPARISON: 05/25/2023 FINDINGS: CHEST CT LOW DOSE 64-year-old male, former smoker who quit 3 years ago, [id number] history. CTDI vol (mGy): 2.9 DLP (mGy-cm): 114.38 There is no axillary adenopathy. There is no mediastinal or hilar mass or adenopathy. The heart is normal in size. There is no pericardial or pleural effusion. There is mild emphysema and moderate pulmonary scarring. Lung window images demonstrate the left upper lobe nodule seen on the prior CT of 2022 is once again visualized, measuring 3 mm and best seen on image #42. No new nodules are identified. Limited images of the upper abdomen are unremarkable. IMPRESSION: Lung-RADS category 2. Recommend 12 month follow up low dose chest CT. Reviewed, Interpreted and Dictated by Jeremy Gill III, MD Transcribed by Mili Mo Authenticated and [facility]
[2024-05-28 08:30] VITALS: PULSE 87; PULSE 92
[2024-05-28] MEDS: ALBUTEROL 0.083% 2.5 MG/3 ML NEB IH (08:30)
== END 2024-05-28 23:59 | disposition home or self-care (01) ==
LOC: RAD 07:04
PROVIDERS: PCP Family Medicine; Visit Provider Internal Medicine Pulmonary Disease
DX: F17.210 Nicotine dependence, cigarettes, uncomplicated (principal); R06.02 Shortness of breath
CPT/HCPCS: 71271; 94060; 94618; 94640; 94726; 94729; J7613

== ENCOUNTER 2024-07-31 15:45 | Outpatient (CLI) | payer MEDICARE, SELFPAY ==
[2024-07-31 18:27] LABS: Alanine Aminotransferase 31 U/L (12-78); Albumin Level 4.3 g/dl (3.5-5.0); Albumin/Globulin Ratio 1.7 (1.1-1.8); Alkaline Phosphatase 91 U/L (38-126); Anion Gap 10.5 mEq/L (5-15); Aspartate Amino Transferase 29 U/L (17-59); Bilirubin,Total 0.7 mg/dl (0.2-1.3); Blood Urea Nitrogen 15 mg/dl (9-20); Calcium 9.6 mg/dl (8.4-10.2); Carbon Dioxide 27 mmol/L (22.0-30.0); Chloride 100 mmol/L (98-107); Chol/HDL Ratio 6.2 (1-3.5); Cholesterol 197 mg/dl (140-200); Estimated Glomerular Filt Rate 97 ml/min (>60); GFR (African American) 117 ML/MIN (>60); Globulin 2.6 g/dL (1.3-3.2); Glucose 183 mg/dl (74-100); HDL Cholesterol 32 mg/dl (40-60); Potassium 4.5 mmoL/L (3.5-5.1); Sodium 133 mmol/L (136-145); Total Protein,Serum 6.9 g/dl (6.3-8.2); Triglycerides 261 mg/dl (30-150); VLDL Cholesterol 52 mg/dL (0-40)
[2024-07-31 18:51] LABS: Direct LDL Cholesterol 129.69 mg/dL (100-129)
[2024-07-31 18:57] LABS: Prostate Specific Ag Screen 0.5 ng/ml (0.0-4.0)
[2024-08-01 11:44] LABS: Hemoglobin A1C 9.3 % (4.0-6.0)
== END 2024-07-31 23:59 | disposition home or self-care (01) ==
LOC: LAB.DROPOF 08-01 09:35
PROVIDERS: PCP Family Medicine; Visit Provider Family Medicine
DX: E66.9 Obesity, unspecified (principal); R03.0 Elevated blood-pressure reading, without diagnosis of hypertension; Z12.5 Encounter for screening for malignant neoplasm of prostate; R73.9 Hyperglycemia, unspecified; Z68.37 Body mass index [BMI] 37.0-37.9, adult
CPT/HCPCS: 80053; 80061; 83036; G0103

== ENCOUNTER 2024-08-03 12:36 | Emergency (ER) | payer MEDICARE, SELFPAY ==
[2024-08-03 12:38] VITALS: BP 162/83; PULSE 81; RESP 17; TEMP 36.6; O2SAT 97; BMI 37.6
--- NOTE | 2024-08-03 12:45 | ECG_ITS ---
APPROVED REPORT Exam: Resting ECG HR:87 bpm ECG Measurements Heart Rate 87 AXES DC 163 P 15 QRSd 105 QRS 8 QT 346 T 63 QTc 390 Conclusion SINUS RHYTHM WITH OCCASIONAL VENTRICULAR PREMATURE COMPLEXES MINIMAL ST DEPRESSION [0.025+ mV ST DEPRESSION] BORDERLINE ECG Electronically signed by : GISSELL REDDY, 08/05/2024 13:18:05
--- NOTE | 2024-08-03 12:58 | PC.NURSE ---
Dr. Ramirez at BS for pt eval
[2024-08-03 13:00] VITALS: BP 162/83; PULSE 86; RESP 16; O2SAT 97
--- NOTE | 2024-08-03 13:07 | PC.NURSE ---
PT walked into room and was trying to sit in the chair where he states he hit his head against the supply container the wall moved and knocked him to the ground denies any injuries at this time, assessed by primary nurse and ER doctor. Pt alert and oriented with no loc. Pt assisted to bed by staff. HS aware
--- NOTE | 2024-08-03 13:17 | ED_ITS ---
Discharge Plan Disposition Patient Disposition: Home, Self-Care Condition: Good Prescriptions Prescriptions: No Action diphenhydramine HCl [Benadryl] 25 mg capsule 25 mg PO HS PRN Referrals Follow up/Referrals: Dick Baker MD [Primary Care Provider] - See instructions (as previously scheduled) Activity Restrictions/Add. Instructions Additional Instructions/Restrictions: Follow-up with your primary care provider and continue to keep the blood pressure log as per their recommendation. Continue to drink adequate water to stay hydrated. Treat any aches and pains by alternating Tylenol and ibuprofen every 3 hours or taking both medications together every 6 hours as needed. Please return to ED if your symptoms worsen, change in location, change in severity, new symptoms develop or if you become concerned for your health. Clinical Impressions Clinical Impression: Anxiety about health, Newly diagnosed diabetes Instructions Patient Instructions: Reducing Your Risk of Heart Disease When You Have Diabetes, DI for Diabetes Type 2, DI for Hyperglycemia -- Adult, Green Leafy Vegetables May Decrease Risk of Type 2 Diabetes Print Language Print Language: Sami Discharge ED Provider: Fawn No General Adult HPI General Chief complaint: Hyper/Hypoglycemia Stated complaint: vomit, High BP, red to L arm/Hot,sugar high Time Seen by Provider: 08/03/24 12:50 Mode of Arrival: Family Vehicle Source of Information: Patient, Spouse and Medical Record Limitations: No Limitations Description of Symptoms (Recalled from ER Triage Doc. by RN): Pt presents to ER with concerns of elevated BP (155/91 - 140/90), elevated Blood sugar (275-250), Headache, and sore/red Left upper arm from vaccine injection site. Pt states he does not usually go to the doctor and saw PCP on Tuesday and dx with diabetes and received 3 vaccinations on this date (Tdap, Pneumonia, Flu). There is a warm, reddened arear to [facility] from vaccine site. Pt took Ibuprofen last night and Aspirin 162 mg just PAN PULLER. States over the last several days he has had twitches to anterior chest. Denies any chest pain or SOA. Denies any dizziness or vision changes. He does reports tingling to his arms off and on for several days also. History of Present Illness HPI narrative: Donte Hernandez is a 64 y/o male presenting with multiple complaints. Patient states he was evaluated by a new primary care provider on [place] when he received the pneumonia, flu, Tdap vaccines. Patient states he was found to have an elevated A1c and was diagnosed with diabetes mellitus. Patient presents to the ED today due to feeling unwell since getting his vaccines and having a lot of anxiety around his new medical diagnoses. Patient states that his blood pressure has been slowly increasing. Patient is supposed to have a sleep study performed as his significant other states that he stops breathing and then gasp for air during the night despite wearing 1.5 L nasal cannula. Patient currently denies headache, blurry vision, chest pain, shortness of breath, nausea/vomiting, bowel or bladder dysfunction. Related Data Home Medications ?Medication ?Instructions ?Recorded ?Confirmed diphenhydramine HCl 25 mg capsule 25 mg PO HS PRN 07/31/24 07/31/24 (Benadryl) Allergies Allergy/AdvReac Type Severity Reaction Status Date / Time No Known Allergies Allergy Verified 07/31/24 14:43 [facility] Disclaimer: The information contained in this section may have been updated after the pat ient was seen, as this information can be updated by other users. Medical History (Updated 08/03/24 @ 13:15 by Fawn No MD) Screening for prostate cancer Elevated blood pressure reading Snoring Nocturnal hypoxia ILD (interstitial lung disease) Pulmonary fibrosis Screening for lung cancer Pulmonary emphysema Stopped smoking with greater than 30 pack year history History of 2019 novel coronavirus disease (COVID-19) Surgical History No history of previous surgery Family History Other Asthma COPD (chronic obstructive pulmonary disease) Cancer Hypertension Stroke Thyroid disorder Social History Smoking Status: Never smoker smoking status stop date: 09/27/2021 alcohol intake: never current occupational status: retired Travel in the last 8 weeks: None Other Medical History Have you received the Flu Vaccine for this season: No Have you received the Pneumonia Vaccine: No ROS Obtained: Yes All systems reviewed & no additional complaints except as documented Physical Exam General General appearance: alert and in no apparent distress Respiratory Respiratory exam: Present normal lung sounds bilaterally; Absent respiratory distress Cardiovascular Cardiovascular exam: Present regular rate and normal rhythm; Absent JVD Abdominal Exam Abdominal exam: Present soft and normal bowel sounds; Absent distention, tenderness or guarding Extremities Exam Extremities exam: Present normal inspection, full ROM and normal capillary refill; Absent calf tenderness Neurological Exam Neurological exam: Present alert and oriented X3 Psychiatric Psychiatric exam: Present anxious Skin Skin exam: Present warm, dry, intact and normal color Medical Decision Making Medical Records Screening: Per USPSTF and CDC recommendations, given the prevalence of disease in our region, it is our hospital?s policy to screen for HIV and viral Hepatitis for all patients aged 18 and over and those with ongoing risk factors. Mickey Inquiry Pt receiving controlled substance: No Vital Signs: 08/03/24 12:38 08/03/24 13:00 08/03/24 13:30 Temperature 97.9 F Temperature Source Oral Pulse Rate 86 82 Pulse Rate [Right] 81 Respiratory Rate 17 16 17 Blood Pressure 162/83 H 140/82 Blood Pressure [Right Arm] 162/83 H Blood Pressure Mean [Right Arm] 109 Blood Pressure Source [Right Arm] Automatic Cuff 02 Sat by Pulse Oximetry 97 97 97 Oxygen Delivery Method Room Air 08/03/24 13:40 Temperature 97.9 F Temperature Source Pulse Rate 80 Pulse Rate [Right] Respiratory Rate 17 Blood Pressure 140/82 Blood Pressure [Right Arm] Blood Pressure Mean [Right Arm] Blood Pressure Source [Right Arm] 02 Sat by Pulse Oximetry Oxygen Delivery Method Room Air Lab Data Lab Results 08/03/24 12:48: HIV 1&2 Antibody Rapid Nonreactive Orders (Tests/Meds): ORDERS Category Date Time Status HIV (1&2) Antibody Rapid Stat Lab 08/03/24 12:48 Completed Hep C Ab with Reflex to RNA Stat Lab 08/03/24 12:48 Received Medical Decision Narrative: In summary, Donte Hernandez is a 64-year-old male presenting with multiple complaints. Differential diagnosis includes but is not limited to, anxiety about medical diagnoses, essential hypertension, hypertensive urgency, migraine headache, vaccine reaction, among others. Upon initial evaluation, patient hemodynamically stable and in no acute distress. Patient's physical exam was completely unremarkable and had no acute findings. Patient's blood pressure was slightly elevated but did not require emergent intervention at this time. Patient explained that he was post to be keeping a blood pressure log and was seeing his primary again early next week for reevaluation and potential initiation of antihypertensives. Patient had no acute findings which indicated the need for laboratory or imaging evaluation at this time. We had a lengthy discussion with regards to weight loss and dietary changes for both the diabetes and likely sleep apnea. Patient and family at bedside were understanding of this information and agreed with the plan for no additional testing at this time. Patient appeared relieved after the conversation. Patient discharged in stable condition. Fawn No MD PGY-3, Emergency Medicine Critical Care Critical Care Time Critical Care Time: No
[2024-08-03 13:30] VITALS: BP 140/82; PULSE 82; RESP 17; O2SAT 97
[2024-08-03 13:40] VITALS: BP 140/82; PULSE 80; RESP 17; TEMP 36.6; O2SAT 98
[2024-08-03 15:30] LABS: HIV (1&2) Antibody Rapid NONREACTIVE (NONREACTIVE)
[2024-08-05 09:09] LABS: HCV Ab Non Reactive (Non Reactive)
== END 2024-08-03 13:57 | disposition home or self-care (01) ==
PROVIDERS: Emergency Provider Student in an Organized Health Care Education/Training Program; PCP Family Medicine
DX: E11.9 Type 2 diabetes mellitus without complications (principal); R45.89 Other symptoms and signs involving emotional state; R03.0 Elevated blood-pressure reading, without diagnosis of hypertension; R07.89 Other chest pain; T50.B95A Adverse effect of other viral vaccines, initial encounter
CPT/HCPCS: 86803; 87389; 93005; 99283

== ENCOUNTER 2024-09-04 13:50 | Outpatient (CLI) | payer MEDICARE, SELFPAY ==
[2024-09-04 19:05] LABS: Basophils # 0.1 K/mm3 (0-0.2); Basophils % 0.8 % (0.1-2.0); Eosinophils # 0.2 K/mm3 (0.0-0.4); Eosinophils % 1.6 % (0.1-12.0); Hematocrit 46.4 % (42.0-52.0); Lymphocytes # 2.5 K/mm3 (0.7-4.5); Lymphocytes % 26.5 % (10-50); Mean Corpuscular HGB Conc 34.6 g/dL (31.8-35.4); Mean Corpuscular Hemoglobin 30.8 pg (27.0-31.2); Mean Corpuscular Volume 88.9 fl (80-94); Mean Platelet Volume 8.1 fl (7.4-10.4); Monocytes # 0.6 K/mm3 (0.1-1.0); Monocytes % 6.4 % (1.7-9.3); Neutrophils # 6.2 K/mm3 (1.8-7.8); Neutrophils % 64.8 % (37.0-80.0); Platelet Count 298 K/mm3 (142-424); Red Blood Count 5.21 M/mm3 (4.60-6.20); Red Cell Distribution Width 14.2 % (11.5-17.5); White Blood Count 9.5 K/mm3 (4.8-10.8)
[2024-09-04 19:41] LABS: Total Iron Binding Capacity 321 ug/dL (261-462)
[2024-09-04 20:09] LABS: Ferritin 203 ng/ml (17.9-464)
[2024-09-04 20:46] LABS: Iron 92 ug/dL (49-181)
== END 2024-09-04 23:59 | disposition home or self-care (01) ==
LOC: LAB.DROPOF 09-05 11:19
PROVIDERS: PCP Family Medicine; Visit Provider Family Medicine
DX: R79.89 Other specified abnormal findings of blood chemistry (principal)
CPT/HCPCS: 82728; 83540; 83550; 85025

== ENCOUNTER 2024-11-08 09:14 | Outpatient (CLI) | payer MEDICARE, SELFPAY ==
[2024-11-08 18:46] LABS: Chloride 102 mmol/L (98-107)
[2024-11-08 18:47] LABS: Albumin Level 4.6 g/dl (3.5-5.0); Potassium 5.4 mmoL/L (3.5-5.1); Sodium 138 mmol/L (136-145)
[2024-11-08 18:49] LABS: Alanine Aminotransferase 37 U/L (12-78); Albumin/Globulin Ratio 1.9 (1.1-1.8); Anion Gap 15.4 mEq/L (5-15); Aspartate Amino Transferase 36 U/L (17-59); Blood Urea Nitrogen 12 mg/dl (9-20); Carbon Dioxide 26 mmol/L (22.0-30.0); Estimated Glomerular Filt Rate 84 ml/min (>60); GFR (African American) 102 ML/MIN (>60); Globulin 2.4 g/dL (1.3-3.2)
[2024-11-08 18:50] LABS: Alkaline Phosphatase 87 U/L (38-126); Bilirubin,Total 0.5 mg/dl (0.2-1.3); Calcium 9.6 mg/dl (8.4-10.2); Chol/HDL Ratio 4.7 (1-3.5); Cholesterol 122 mg/dl (140-200); Glucose 97 mg/dl (74-100); HDL Cholesterol 26 mg/dl (40-60); Triglycerides 158 mg/dl (30-150); VLDL Cholesterol 32 mg/dL (0-40)
[2024-11-08 19:01] LABS: Direct LDL Cholesterol 71.38 mg/dL (100-129)
[2024-11-08 19:13] LABS: Hemoglobin A1C 5.4 % (4.0-6.0)
== END 2024-11-08 23:59 | disposition home or self-care (01) ==
LOC: LAB.DROPOF 11-09 09:14
PROVIDERS: PCP Family Medicine; Visit Provider Family Medicine
DX: E11.9 Type 2 diabetes mellitus without complications (principal)
CPT/HCPCS: 80053; 80061; 83036

== ENCOUNTER 2024-11-15 10:32 | Outpatient (CLI) | payer MEDICARE, SELFPAY ==
[2024-11-15 19:23] LABS: Chloride 100 mmol/L (98-107); Sodium 142 mmol/L (136-145)
[2024-11-15 19:25] LABS: Blood Urea Nitrogen 17 mg/dl (9-20); Estimated Glomerular Filt Rate 75 ml/min (>60); GFR (African American) 90 ML/MIN (>60)
[2024-11-15 19:26] LABS: Calcium 9.7 mg/dl (8.4-10.2); Carbon Dioxide 27 mmol/L (22.0-30.0); Glucose 137 mg/dl (74-100)
== END 2024-11-15 23:59 | disposition home or self-care (01) ==
LOC: LAB.DROPOF 11-16 10:00
PROVIDERS: PCP Family Medicine; Visit Provider Family Medicine
DX: E11.9 Type 2 diabetes mellitus without complications (principal)
CPT/HCPCS: 80048

== ENCOUNTER 2024-12-31 14:19 | Outpatient (CLI) | payer MEDICARE, SELFPAY ==
[2024-12-31 20:40] LABS: Chloride 100 mmol/L (98-107); Sodium 139 mmol/L (136-145)
[2024-12-31 20:43] LABS: Blood Urea Nitrogen 14 mg/dl (9-20); Calcium 9.4 mg/dl (8.4-10.2); Carbon Dioxide 31 mmol/L (22.0-30.0); Estimated Glomerular Filt Rate 84 ml/min (>60); GFR (African American) 102 ML/MIN (>60); Glucose 86 mg/dl (74-100)
== END 2024-12-31 23:59 | disposition home or self-care (01) ==
LOC: LAB.DROPOF 01-01 12:00
PROVIDERS: PCP Family Medicine; Visit Provider Family Medicine
DX: E87.5 Hyperkalemia (principal); I10 Essential (primary) hypertension
CPT/HCPCS: 80048

== ENCOUNTER 2025-01-10 11:36 | Outpatient (CLI) | payer MEDICARE, SELFPAY ==
[2025-01-10 13:36] VITALS: BMI 37.0
== END 2025-01-10 23:59 | disposition home or self-care (01) ==
LOC: DIETICIAN 11:37
PROVIDERS: PCP Family Medicine; Visit Provider Family Medicine
DX: E11.9 Type 2 diabetes mellitus without complications (principal); E87.5 Hyperkalemia
CPT/HCPCS: 97802

== ENCOUNTER 2025-02-07 16:00 | Outpatient (CLI) | payer MEDICARE, SELFPAY ==
[2025-02-07 19:54] LABS: Alanine Aminotransferase 32 U/L (12-78); Albumin Level 4.3 g/dl (3.5-5.0); Albumin/Globulin Ratio 1.5 (1.1-1.8); Alkaline Phosphatase 84 U/L (38-126); Aspartate Amino Transferase 31 U/L (17-59); Bilirubin,Total 0.5 mg/dl (0.2-1.3); Blood Urea Nitrogen 13 mg/dl (9-20); Calcium 9.3 mg/dl (8.4-10.2); Carbon Dioxide 26 mmol/L (22.0-30.0); Chloride 101 mmol/L (98-107); Chol/HDL Ratio 4.7 (1-3.5); Cholesterol 137 mg/dl (140-200); Estimated Glomerular Filt Rate 97 ml/min (>60); GFR (African American) 117 ML/MIN (>60); Globulin 2.9 g/dL (1.3-3.2); Glucose 87 mg/dl (74-100); HDL Cholesterol 29 mg/dl (40-60); Sodium 140 mmol/L (136-145); Total Protein,Serum 7.2 g/dl (6.3-8.2); Triglycerides 176 mg/dl (30-150); VLDL Cholesterol 35 mg/dL (0-40)
[2025-02-07 20:15] LABS: Hemoglobin A1C 5.5 % (4.0-6.0)
== END 2025-02-07 23:59 | disposition home or self-care (01) ==
LOC: LAB.DROPOF 02-08 12:07
PROVIDERS: PCP Family Medicine; Visit Provider Family Medicine
DX: E78.5 Hyperlipidemia, unspecified (principal); E11.9 Type 2 diabetes mellitus without complications; E66.9 Obesity, unspecified; Z68.37 Body mass index [BMI] 37.0-37.9, adult
CPT/HCPCS: 80053; 80061; 83036

== ENCOUNTER 2025-05-09 15:07 | Outpatient (CLI) | payer MEDICARE, SELFPAY ==
[2025-05-09 20:12] LABS: Hemoglobin A1C 6.6 % (4.0-6.0)
[2025-05-09 20:36] LABS: Alanine Aminotransferase 23 U/L (12-78); Albumin Level 4.6 g/dl (3.5-5.0); Albumin/Globulin Ratio 1.8 (1.1-1.8); Alkaline Phosphatase 75 U/L (38-126); Anion Gap 20.3 mEq/L (5-15); Aspartate Amino Transferase 27 U/L (17-59); Bilirubin,Total 0.7 mg/dl (0.2-1.3); Blood Urea Nitrogen 16 mg/dl (9-20); Calcium 9.6 mg/dl (8.4-10.2); Carbon Dioxide 24 mmol/L (22.0-30.0); Chloride 97 mmol/L (98-107); Cholesterol 131 mg/dl (140-200); Creatinine,Serum 0.90 mg/dl (0.66-1.25); Estimated Glomerular Filt Rate 84 ml/min (>60); GFR (African American) 102 ML/MIN (>60); Globulin 2.5 g/dL (1.3-3.2); Glucose 88 mg/dl (74-100); HDL Cholesterol 30 mg/dl (40-60); Potassium 4.3 mmoL/L (3.5-5.1); Sodium 137 mmol/L (136-145); Total Protein,Serum 7.1 g/dl (6.3-8.2); Triglycerides 155 mg/dl (30-150)
== END 2025-05-09 23:59 | disposition home or self-care (01) ==
LOC: LAB.DROPOF 05-10 10:07
PROVIDERS: PCP Family Medicine; Visit Provider Family Medicine
DX: E11.9 Type 2 diabetes mellitus without complications (principal)
CPT/HCPCS: 80053; 80061; 83036

== ENCOUNTER 2025-05-31 09:37 | Outpatient (CLI) | payer MEDICARE, SELFPAY ==
--- NOTE | 2025-05-31 10:00 | CT_ITS ---
FINAL REPORT TECHNIQUE: Axial CT images of the chest were obtained without contrast. Low-dose protocol was utilized. This study was performed with techniques to keep radiation doses as low as reasonably achievable (ALARA). Individualized dose reduction techniques using automated exposure control or adjustment of mA and/or kV according to the patient's size were employed. CLINICAL HISTORY: lung cancer screening FORMER SMOKER QUIT 4 YEARS AGO 2PPD X49 YEARS COMPARISON: 05/28/2024 FINDINGS: CT CHEST WITHOUT, LOW DOSE SCREENING CTDl vol(mGy): 2.90 DLP (mGy-cm): 111.51 Former smoker 98 pack year history There is no axillary adenopathy. There is no hilar or mediastinal adenopathy. The heart size is normal. There is no pericardial or pleural effusion. The lung window images demonstrate moderate changes of centrilobular emphysema. There are no definite nodules identified. Limited images of the upper abdomen are unremarkable. IMPRESSION: Lung RADS category 1. Recommend 12 month follow-up low-dose chest CT per Fleischner criteria. Reviewed, Interpreted and Dictated by Arnold Valenzuela MD Transcribed by Kinjal Chen Authenticated and [facility]
== END 2025-05-31 23:59 | disposition home or self-care (01) ==
LOC: RAD 09:38
PROVIDERS: PCP Family Medicine; Visit Provider Family Medicine
DX: Z12.2 Encounter for screening for malignant neoplasm of respiratory organs (principal); J43.9 Emphysema, unspecified; Z87.891 Personal history of nicotine dependence
CPT/HCPCS: 71271